=== PATIENT | female | born 1955 | race Caucasian/White ===

== ENCOUNTER 2019-02-25 06:07 | Day surgery (SDC) | payer OTHER, BC ==
[2019-02-23 13:10] VITALS: BMI 24.9
[~2019-02-25 06:07] MED LIST: BUPIVACAINE HCL/PF 0.5% (5 MG/ML) 30 ML VIAL IJ ONE; LACTATED RINGERS SOLUTION 1,000 ML IV SCH; LIDOCAINE HCL 1%, 10 MG/ML (20ML VIAL) INF ONE; ONDANSETRON 4 MG/2 ML VIAL IVPUSH PRN; oxyCODONE HCL 5 MG TABLET PO PRN
[2019-02-25] MEDS ORDERED: LIDOCAINE HCL 1%, 10 MG/ML (20ML VIAL) ONE (07:23)
[2019-02-25] MEDS ORDERED: BUPIVACAINE HCL/PF 0.5% (5MG/ML) 10 ML VIAL ONE (07:24)
[2019-02-25] MEDS ORDERED: SEVOFLURANE 250 ML BTL ONE (07:26)
[2019-02-25] MEDS ORDERED: PROPOFOL 20 ML ONE ×3 (07:31→08:19)
[2019-02-25] MEDS ORDERED: SODIUM CHLORIDE 0.9% P/F 10 ML VIAL IJ ONE (07:32)
[2019-02-25] MEDS ORDERED: SUCCINYLCHOLINE CHLORIDE 200 MG/10 ML SYRINGE ONE (07:35)
[2019-02-25] MEDS ORDERED: ceFAZolin SODIUM 1 GM VIAL ONE ×2 (07:35→08:20)
[2019-02-25] MEDS ORDERED: ROCURONIUM BROMIDE 50 MG/5 ML SYRINGE ONE (07:36)
[2019-02-25] MEDS ORDERED: DEXAMETHASONE SOD PHOSPHATE 4 MG/1 ML VIAL ONE ×2 (07:39)
[2019-02-25] MEDS ORDERED: MIDAZOLAM HCL 2 MG/2 ML SINGLE DOSE VIAL ONE ×2 (07:40)
[2019-02-25] MEDS ORDERED: KETOROLAC TROMETHAMINE 30 MG/1 ML VIAL ONE (07:40)
[2019-02-25] MEDS ORDERED: ACETAMINOPHEN INJECTION 100 ML IVPB ONE (07:44)
[2019-02-25] MEDS ORDERED: ceFAZolin SODIUM 1 GM VIAL IVPB ONE (08:15)
--- NOTE | 2019-02-25 08:21 | HP ---
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 Cardiovascular: Yes: HTN Gastrointestinal: Yes: GERD Musculoskeletal: Yes: Osteoarthritis - Current Medications Current Medications: Home Medications Medication Instructions Recorded Amlodipine Besylate [Norvasc -] 10 mg PO DAILY 03/02/14 Atorvastatin Ca [Lipitor] 40 mg PO HS 03/02/14 Enalapril Maleate [Vasotec -] 20 mg PO DAILY 03/02/14 Potassium Chloride [K-Dur] 40 meq PO DAILY 03/02/14 Sertraline HCl [Zoloft] 100 mg PO DAILY 03/02/14 Spironolactone [Aldactone] 50 mg PO BID 03/02/14 Metoprolol Succinate [Toprol Xl] 50 mg PO DAILY 07/20/15 Satellite Physical Exam - Physical Examination Vital Signs: Vital Signs Period Temp Pulse Resp BP Sys/Walter Pulse Ox Last 24 Hr 98.0 F 64 20 180/100 95 General Appearance: Well Nourished, Well Developed, Alert & Oriented x3 ENT: Clear Lung: Normal air movement Heart: Regular rate & rhythm Extremities: Other (left hand- + tinels, + phalens, emg + cts) Neurological: Intact, Alert, Oriented Satellite Impression/Plan - Impression/Plan Impression: left cts Operative Procedure: left ctr Date to be Performed: 02/25/19
[2019-02-25] MEDS ORDERED: LIDOCAINE HCL 1%, 10 MG/ML (20ML VIAL) INF ONE ×2 (08:31)
[2019-02-25] MEDS ORDERED: BUPIVACAINE HCL/PF 0.5% (5 MG/ML) 30 ML VIAL IJ ONE ×2 (08:31)
--- NOTE | 2019-02-25 09:04 | OP ---
Operative Note - Note: Operative Date: 02/25/19 ([facility]) Pre-Operative Diagnosis: left cts Operation: left ctr Post-Operative Diagnosis: Same as Pre-op Surgeon: Wilian Chang Anesthesiologist/CIGAR SORTER: Bro Vincent Anesthesia: Local, MAC Specimens Removed: tenosynovium Estimated Blood Loss (mls): 0 (tourniquet) Operative Report Dictated: Yes
[2019-02-25 09:07] VITALS: TEMP 97.4
--- NOTE | 2019-02-25 09:39 | SPEC ---
DATE OF OPERATION: 02/25/2019 PREOPERATIVE DIAGNOSIS: Left carpal tunnel syndrome. POSTOPERATIVE DIAGNOSIS: Left carpal tunnel syndrome. PROCEDURE: Left carpal tunnel release and tenosynovectomy. SURGEON: Bart Grimm MD CONVENTION WORKER: None. SPECIMENS: Tenosynovium, left wrist. DRAINS: None. COMPLICATIONS: None. BLOOD LOSS: None. BLOOD GIVEN: None. FLUID REPLACEMENT: PlasmaLyte, 500 mL. INDICATIONS: This patient is a 63-year-old female with a preoperative diagnosis of left carpal tunnel syndrome. After understanding the potential risks, complications, alternatives and benefits of surgery versus nonsurgical treatment, the patient elected to undergo this procedure. DESCRIPTION OF PROCEDURE: The patient was brought to the operating room, peripheral IV placed and intravenous sedation was given. Two grams of IV Ancef were given. MAC anesthesia was induced. A tourniquet was applied to the left upper arm and the left upper extremity was prepped and draped in sterile fashion. The entire case was done under 3.8 loupe magnification. A marking pen was utilized to lilly out a longitudinal incision in an already existing skin crease. Twenty mL of 0.5% Marcaine mixed with 1% Lidocaine was injected in and around the surgical incision. The left upper extremity was elevated, exsanguinated with an Esmarch bandage and the tourniquet inflated to 250 mmHg. A No. 15 scalpel blade was utilized to cut down through the skin. Subcutaneous hemostasis was achieved with the bipolar cautery. Dissection was done through the superficial palmar fascia. Self-retaining retractors were placed into the wound. Under direct visualization, the transverse carpal ligament was transected with a No. 15 scalpel blade, exposing the median nerve and the contents of the carpal tunnel. The distal and proximal extents of the release were completed with a Littler scissor and checked with irrigation and my small finger. They were seen to be complete. Limited dissection was done on the radial side of the median nerve and more extensive dissection was done on the ulnar side of the median nerve. The patients nerve was seen to be quite compressed by epineurium and therefore a limited epineurotomy was performed. A Ragnell retractor was used to gently retract the median nerve in a radial direction. The patient had a lot of tenosynovitis and therefore a tenosynovectomy was performed off all 9 flexor tendons. This was passed off the field as tenosynovium, left wrist. The floor of the carpal tunnel was checked. There were no abnormal masses or ganglion cysts. The area was copiously irrigated and washed out and closure begun. Undyed 4-0 Vicryl was used to close the deep dermal layer. Final skin reapproximation was done with horizontal mattress 4-0 nylon sutures. The area was then washed and dried, covered with Xeroform, 4x4s, fluffs between the fingers, Webril and a 4-inch plaster roll was utilized to make a volar splint, which was then wrapped with Norman and Coban. The tourniquet was taken down after a total tourniquet time of 20 minutes. There were no complications during the case. The patient tolerated the procedure well and was brought to the ambulatory recovery room in stable condition. BART GRIMM M.D. [id number]
[2019-02-25 11:49] VITALS: BP 146/81; PULSE 63
--- NOTE | 2019-03-02 17:19 | PATH ---
Surgical Pathology Report Patient Name: RAINA CASTANO [facility]. Rec. #: [id number] /Age/Gender: 1955 (Age: 63) / F Account: [id number] Location: [facility] Taken: 02/25/2019 Received: 02/25/2019 Reported: 03/02/2019 Physicians: Wilian Chang M.D. Specimen(s) Received TENOSYNOVIUM LEFT HAND Clinical History Left carpal tunnel Final Diagnosis TENOSYNOVIUM, HAND, LEFT, CARPAL TUNNEL RELEASE: BENIGN FIBROCONNECTIVE TISSUE. Electronically Signed Monse Woods M.D. Gross Description Received in formalin labeled "tenosynovium left hand," is a 2.5 x 1.5 x 0.3 cm aggregate of vasques-yellow portions of soft tissue, consistent with tenosynovium. The specimen is submitted in toto in one cassette. 02/26/201902/26/2019
== END 2019-02-25 10:30 | disposition home or self-care (01) ==
LOC: JASU-SURG 06:07
PROVIDERS: ATTEND Orthopaedic Surgery
PROC: 01N50ZZ Release Median Nerve, Open Approach (ICD-10-PCS; principal; 2019-02-25 08:00)
DX: G56.02 Carpal tunnel syndrome, left upper limb (principal)
CPT/HCPCS: 88304-TC; J0131

== ENCOUNTER 2019-04-12 09:36 | Inpatient (IN) | payer OTHER, BC ==
--- NOTE | 2019-04-12 10:44 | PDOC ---
History of Present Illness - General Chief Complaint: Back Pain Stated Complaint: LWR BACK PAIN Time Seen by Provider: 04/12/19 09:59 History Source: Patient Exam Limitations: No Limitations - History of Present Illness Initial Comments: 04/12/19 10:51 63 yo female pmh chronic back pain, arthritis and bulging discs presents to the ED with bilateral lower back pain. Pt states she has had this pain over the past 2 months (chart review shows past visits for similar complaints with pain management f/u) without trauma or cause of the pain. States the pain started suddenly, saw pcp who referred pt to Neurosurge->Pain management-> Endocrinology because pt has possible adrenal gland issues requiring work up prior to steroid injection. Pt last saw Endocrine 1 week ago, pending blood work and paper work and will f/u with pain. Pt states over the past 2 days she has had worsening pain in her back making it more difficult to get out of bed or ambulate. Pain is described as sharp stabbing squeezing and with radiation down the right leg. Pt states she has been seeing Chiropractor and having adjustments, states pain worseninged after adjustment. Denies F/C/N/V, weakness into the legs, saddle anesthesia, incontinence, changes in bowel or bladder habits, ambulates at home and into the ED, CP, SOB, abdominal pain. Past History - Past Medical History Allergies/Adverse Reactions: Allergies Allergy/AdvReac Type Severity Reaction Status Date / Time No Known Allergies Allergy Verified 04/12/19 09:41 Home Medications: Ambulatory Orders Amlodipine Besylate [Norvasc -] 10 mg PO DAILY 03/02/14 Atorvastatin Ca [Lipitor] 40 mg PO HS 03/02/14 Enalapril Maleate [Vasotec -] 20 mg PO DAILY 03/02/14 Potassium Chloride [K-Dur] 20 meq PO DAILY 03/02/14 Sertraline HCl [Zoloft] 100 mg PO DAILY 03/02/14 Spironolactone [Aldactone] 50 mg PO BID 03/02/14 Metoprolol Succinate [Toprol Xl] 50 mg PO DAILY 07/20/15 Hydrocodone/Acetaminophen [Hydrocodone-Acetamin 5-325 mg] 1 each PO Q6H #20 tablet MDD 4 02/25/19 Anemia: No Asthma: No Cancer: Yes (L RENAL) Cardiac Disorders: No CVA: No COPD: No CHF: No Dementia: No Diabetes: No GI Disorders: No Disorders: Yes (FIBROIDS) HTN: Yes Hypercholesterolemia: Yes Liver Disease: No Seizures: No Thyroid Disease: No - Surgical History Abdominal Surgery: Yes Cholecystectomy: Yes Neurologic Surgery: Yes (BACK SX) - Suicide/Smoking/Psychosocial Hx Smoking History: Never smoked Have you smoked in the past 12 months: No Information on smoking cessation initiated: No Hx Alcohol Use: No Drug/Substance Use Hx: No Substance Use Type: None Hx Substance Use Treatment: No Review of Systems - Review of Systems Constitutional: No: Chills, Fever HEENTM: No: Blurred Vision, Double Vision Respiratory: No: Shortness of Breath Cardiac (ROS): No: Chest Pain ABD/GI: No: Constipated, Diarrhea, Nausea, Vomiting : No: Burning, Dysuria, Flank Pain, Hematuria, Incontinence Musculoskeletal: Yes: Back Pain Integumentary: No: Change in Color Neurological: Yes: Numbness, Paresthesia, Unsteady Gait. No: Headache, Weakness *Physical Exam - Vital Signs Last Vital Signs Temp Pulse Resp BP Pulse Ox 98.1 F 72 22 H 148/89 98 04/12/19 10:30 04/12/19 10:30 04/12/19 10:30 04/12/19 10:30 04/12/19 10:30 - Physical Exam General Appearance: Yes: Nourished, Appropriately Dressed. No: Apparent Distress HEENT: positive: EOMI, LESLY Neck: positive: Supple. negative: Carotid bruit Respiratory/Chest: positive: Lungs Clear, Normal Breath Sounds. negative: Respiratory Distress, Accessory Muscle Use, Rapid RR, Crackles, Rales, Rhonchi, Stridor, Wheezing Cardiovascular: positive: Regular Rhythm, Regular Rate, S1, S2. negative: Edema , JVD, Murmur Gastrointestinal/Abdominal: positive: Flat, Soft. negative: Pulsatile Mass, Guarding, Rebound, Tenderness Musculoskeletal: negative: CVA Tenderness Extremity: positive: Normal Capillary Refill, Normal Inspection, Normal Range of Motion Integumentary: positive: Normal Color, Dry, Warm Neurologic: positive: Fully Oriented, Alert, Normal Mood/Affect, Normal Response , Motor Strength 5/5. negative: Numbness, Sensory Deficit, Confused, Disoriented ED Treatment Course - LABORATORY CBC & Chemistry Diagram: 04/12/19 12:49 04/12/19 12:49 Medical Decision Making - Medical Decision Making 63 yo female pmh chronic back pain, arthritis and bulging discs presents to the ED with bilateral lower back pain. Pt states she has had this pain over the past 2 months (chart review shows past visits for similar complaints with pain management f/u) without trauma or cause of the pain. States the pain started suddenly, saw pcp who referred pt to Neurosurge->Pain management-> Endocrinology because pt has possible adrenal gland issues requiring work up prior to steroid injection. Pt last saw Endocrine 1 week ago, pending blood work and paper work and will f/u with pain. Pt states over the past 2 days she has had worsening pain in her back making it more difficult to get out of bed or ambulate. Pain is described as sharp stabbing squeezing and with radiation down the right leg. Pt states she has been seeing Chiropractor and having adjustments, states pain worseninged after adjustment. Denies F/C/N/V, weakness into the legs, saddle anesthesia, incontinence, changes in bowel or bladder habits, ambulates at home and into the ED, CP, SOB, abdominal pain. vitals WNL 04/12/19 12:35 pt has hx of partial nephrectomy with UTI sepsis pt has UTI in the ED, antibiotics IV given. discussed with Dr. Courtney, agrees to have pt admitted and to have sono of kidney 04/12/19 14:06 Labs show 2.8 K, microblog Dr. Courtney and pt given 40 K PO with 10 meq IV will relay information to Dr. Courtney 04/12/19 14:[address] Courtney, would like nephro consult which was placed. Pt reports having hx of chronic low K in the 2s pt admitted *DC/Admit/Observation/Transfer Diagnosis at time of Disposition: UTI (urinary tract infection), Back pain - Discharge Dispostion Condition at time of disposition: Stable Decision to Admit order: Yes - Referrals - Patient Instructions - Post Discharge Activity
[2019-04-12] MEDS ORDERED: TIZANIDINE HCL 2 MG TABLET PO ONE (10:50)
--- NOTE | 2019-04-12 10:50 | PDOC ---
Attending Attestation - Resident Resident Name: Franklin Moncada - ED Attending Attestation I have performed the following: I have examined & evaluated the patient, The case was reviewed & discussed with the resident, I agree w/resident's findings & plan, Exceptions are as noted - HPI HPI: 63 yo F history chronic low back pain presenting with B/L lower and mid-back pain. She has had it for months, has been referred to NSx as an outpatient, who referred her to pain management for cortisone shot (then she was referred to an voltage tester because of history of prior adrenal resection). She has been taking pain meds, lidoderm patches, and flexeril without relief. No N/V, f/c. - Physicial Exam PE: GENERAL: Awake, alert, and fully oriented, in no acute distress HEAD: No signs of trauma EYES: PERRLA, EOMI, sclera anicteric, conjunctiva clear ENT: Auricles normal inspection, hearing grossly normal, nares patent, oropharynx clear without exudates. Moist mucosa NECK: Normal ROM, supple, no lymphadenopathy, JVD, or masses LUNGS: Breath sounds equal, clear to auscultation bilaterally. No wheezes, and no crackles HEART: Regular rate and rhythm, normal S1 and S2, no murmurs, rubs or gallops ABDOMEN: Soft, nontender, normoactive bowel sounds. No guarding, no rebound. No masses EXTREMITIES: Normal range of motion, no edema. No clubbing or cyanosis. No cords, erythema, or tenderness NEUROLOGICAL: Cranial nerves II through XII grossly intact. Normal speech, normal gait. Motor and sensation intact SKIN: Warm, dry, normal turgor, no rashes or lesions noted. SPINE: +B/L paraspinal soft tissue tenderness in lumbar region - Medical Decision Making 04/12/19 12:19 Pt with positive UA. On further history she states she gets frequent UTIs. In light of prior partial nephrectomy and sepsis from UTI, she may require admission. The back pain may be first sign of pyelonephritis rather than muscle strain. Will d/w her PMD.
[2019-04-12 11:53] LABS: EPI CELLS 2.4 /HPF (0-5/HPF); HYALINE CASTS 12 /lpf (0-8); URINE APPEARANCE CLOUDY; URINE BACTERIA 1430.2 /hpf (NEGATIVE); URINE BILIRUBIN NEGATIVE (NEGATIVE); URINE COLOR YELLOW; URINE GLUCOSE (UA) NEGATIVE (NEGATIVE); URINE KETONE NEGATIVE (NEGATIVE); URINE LEUK ESTERASE 2+ (NEGATIVE); URINE NITRITE POSITIVE (NEGATIVE); URINE PROTEIN 1+ (NEGATIVE); URINE RBC 3 /hpf (0-4); URINE UROBILINOGEN 0.2 mg/dL (0.2-1.0); URINE WBC 37 /hpf (0-5)
[2019-04-12] MEDS ORDERED: SODIUM CHLORIDE 1,000 ML IV STA (12:12)
[2019-04-12] MEDS ORDERED: CEFTRIAXONE 1 GM in DEXTROSE 5%-WATER - 50 ML IVPB ONE (12:12)
[2019-04-12] MEDS ORDERED: CEFTRIAXONE 1 GM/50 ML BAG ONE (12:19)
[2019-04-12 13:06] LABS: BASO % 0.4 % (0-2.0); HEMOGLOBIN 12.7 GM/dL (10.7-15.3); LYMPH % 11.6 % (8-40); MCH 26.4 pg (25.7-33.7); MCHC 33.5 g/dl (32.0-36.0); MEAN CELL VOLUME 78.9 fl (80-96); MEAN PLT VOLUME 7.6 fl (7.5-11.1); MONO % 7.8 % (3.8-10.2); NEUT % 79.2 % (42.8-82.8); PLATELET COUNT 348 K/MM3 (134-434); RBC 4.82 M/mm3 (3.60-5.2); RDW 16.4 % (11.6-15.6); WHITE BLOOD COUNT 11.8 K/mm3 (4.0-10.0)
[2019-04-12 13:33] LABS: ALBUMIN 3.2 g/dl (3.4-5.0); BILIRUBIN,TOTAL 0.5 mg/dL (0.2-1); BLOOD UREA NITROGEN 19.5 mg/dL (7-18); CALCIUM 9.3 mg/dL (8.5-10.1); CREATININE 0.7 mg/dL (0.55-1.3); TOT PROT 6.7 g/dl (6.4-8.2)
[2019-04-12 13:44] LABS: POTASSIUM 2.8 mmol/L (3.5-5.1)
[2019-04-12] MEDS ORDERED: POTASSIUM CHLORIDE ORAL LIQUID 20 MEQ/15 ML PO ONE (14:05)
[2019-04-12] MEDS ORDERED: KCL 10 MEQ IVPB 10 MEQ/100 ML INFUS.BAG IVPB SCH (14:15)
[2019-04-12] MEDS ORDERED: KCL 10 MEQ IVPB 10 MEQ/100 ML INFUS.BAG IVPB ONE ×5 (15:09→22:00)
[2019-04-12] MEDS ORDERED: POTASSIUM CHLORIDE ORAL LIQUID 20 MEQ/15 ML ONE (15:09)
--- NOTE | 2019-04-12 15:16 | HP ---
Admitting History and Physical - Primary Care Physician PCP: Vamshi Courtney - Admission Chief Complaint: PYLONEPHRITIS/HYPOKALEMIA/CORTISOL DEFECIENCY History of Present Illness: 63 Y/O FEMALE WITH H/O HTN, LIPIDEMIA, CORTISOL DEFECIENCY, SURGICAL HISTORY OF ADRENAL RESECTION FOR A TUMOR PRESENTS WITH SEVERE BACK PAIN, URINARY FREQUENCY , WEAKNESS. 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 Cardiovascular: Yes: HTN Gastrointestinal: Yes: GERD Musculoskeletal: Yes: Osteoarthritis - Past Surgical History Past Surgical History: Yes: Laminectomy, Nephrectomy - Smoking History Smoking history: Never smoked Have you smoked in the past 12 months: No - Alcohol/Substance Use Hx Alcohol Use: No Home Medications - Allergies Allergies/Adverse Reactions: Allergies Allergy/AdvReac Type Severity Reaction Status Date / Time No Known Allergies Allergy Verified 04/12/19 09:41 - Home Medications Home Medications: Ambulatory Orders Amlodipine Besylate [Norvasc -] 10 mg PO DAILY 03/02/14 Atorvastatin Ca [Lipitor] 40 mg PO HS 03/02/14 Enalapril Maleate [Vasotec -] 20 mg PO DAILY 03/02/14 Potassium Chloride [K-Dur] 20 meq PO DAILY 03/02/14 Sertraline HCl [Zoloft] 100 mg PO DAILY 03/02/14 Spironolactone [Aldactone] 50 mg PO BID 03/02/14 Metoprolol Succinate [Toprol Xl] 50 mg PO DAILY 07/20/15 Hydrocodone/Acetaminophen [Hydrocodone-Acetamin 5-325 mg] 1 each PO Q6H #20 tablet MDD 4 02/25/19 Review of Systems - Review of Systems Constitutional: reports: Weakness Eyes: reports: No Symptoms HENT: reports: No Symptoms Neck: reports: No Symptoms Cardiovascular: reports: No Symptoms Respiratory: reports: No Symptoms Gastrointestinal: reports: No Symptoms Genitourinary: reports: Frequency Musculoskeletal: reports: Back Pain Integumentary: reports: No Symptoms Neurological: reports: Numbness Endocrine: reports: No Symptoms Hematology/Lymphatic: reports: No Symptoms Psychiatric: reports: No Symptoms Physical Examination Vital Signs: Vital Signs Temperature 98.1 F 04/12/19 10:30 Pulse Rate 72 04/12/19 10:30 Respiratory Rate 22 H 04/12/19 10:30 Blood Pressure 148/89 04/12/19 10:30 O2 Sat by Pulse Oximetry (%) 98 04/12/19 10:30 Constitutional: Yes: Moderate Distress Cardiovascular: Yes: Regular Rate and Rhythm Respiratory: Yes: WNL Gastrointestinal: Yes: WNL Renal/: Yes: WNL Musculoskeletal: Yes: Back Pain, Muscle Weakness Extremities: Yes: WNL Edema: No Integumentary: Yes: WNL Wound/Incision: Yes: Clean/Dry ...Motor Strength: WNL Psychiatric: Yes: WNL Labs: CBC, BMP 04/12/19 12:49 04/12/19 12:49 Imaging - Results Ultrasound: Pending Problem List - Problems (1) Hypokalemia Code(s): E87.6 - HYPOKALEMIA (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 - OTHER ADRENOCORTICAL INSUFFICIENCY (3) Pyelonephritis Code(s): N12 - TUBULO-INTERSTITIAL NEPHRITIS, NOT SPCF ACUTE OR CHRONIC (4) Back pain Code(s): M54.9 - DORSALGIA, UNSPECIFIED (5) Urinary tract infection Code(s): N39.0 - URINARY TRACT INFECTION, SITE NOT SPECIFIED (6) Lumbar radicular pain Code(s): M54.16 - RADICULOPATHY, LUMBAR REGION Assessment/Plan AWAIT URINE CULTURES CEFTRIAXONE IV CHECK SONO OF KIDNEYS ENDOCRINE/NEPHROLOGY EVAL FOR CORTISOL DEFECIENCY OOB TO CHAIR PAIN CONTROL RADICULAR LUMBAGO
[2019-04-12] MEDS ORDERED: SODIUM CHLORIDE IVPB SCH (15:30)
[2019-04-12] MEDS ORDERED: POTASSIUM CHLORIDE IVPB SCH (15:30)
[2019-04-12] MEDS ORDERED: ACETAMINOPHEN 325 MG TABLET (FP) ONE ×2 (16:28→23:30)
[2019-04-12] MEDS ORDERED: CYCLOBENZAPRINE HCL 10 MG TABLET (FP) ONE (16:28)
[2019-04-12] MEDS: ACETAMINOPHEN 325 MG TABLET (FP) PO PRN ×2 (16:30→23:40)
[2019-04-12] MEDS: CYCLOBENZAPRINE HCL 10 MG TABLET (FP) PO PRN (16:30)
[2019-04-12 19:47] LABS: MAGNESIUM 2.1 mg/dL (1.8-2.4)
[2019-04-12 19:51] LABS: POTASSIUM 2.8 mmol/L (3.5-5.1)
--- NOTE | 2019-04-12 20:23 | CONSULT ---
Consult Consult Specialty:: Nephrology Reason for Consultation:: hypokalemia - History of Present Illness Chief Complaint: back pain History of Present Illness: Pt is a 63 year old female with pmhx of partnial nephrectomy, hypokalemia, chornic back pain and arthritis who presents to the ER with worsening lower back pain. She says that the pain has been progressive over the last few months. She denies dysuria or hematuria. She was found to be hypokalemic and I was called to evaluate her. She had received potassium supplements. I ordered a repeat potassium in the ER earlier. She denies chest pain or palpitations. 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 Cardio/Vascular: Yes: HTN Gastrointestinal: Yes: GERD Renal/: Yes: Renal Inusuff Musculoskeletal: Yes: Osteoarthritis - Past Surgical History Past Surgical History: Yes: Laminectomy, Nephrectomy - Alcohol/Substance Use Hx Alcohol Use: No - Smoking History Smoking history: Never smoked Have you smoked in the past 12 months: No - Social History Usual Living Arrangement: With Spouse Home Medications - Allergies Allergies/Adverse Reactions: Allergies Allergy/AdvReac Type Severity Reaction Status Date / Time No Known Allergies Allergy Verified 04/12/19 09:41 - Home Medications Home Medications: Ambulatory Orders RX: Amlodipine Besylate [Norvasc -] 10 mg PO DAILY 03/02/14 RX: Atorvastatin Ca [Lipitor] 40 mg PO HS 03/02/14 RX: Enalapril Maleate [Vasotec -] 20 mg PO DAILY 03/02/14 RX: Potassium Chloride [K-Dur] 20 meq PO DAILY 03/02/14 RX: Sertraline HCl [Zoloft] 100 mg PO DAILY 03/02/14 RX: Spironolactone [Aldactone] 50 mg PO BID 03/02/14 RX: Metoprolol Succinate [Toprol Xl] 50 mg PO DAILY 07/20/15 Hydrocodone/Acetaminophen [Hydrocodone-Acetamin 5-325 mg] 1 each PO Q6H #20 tablet MDD 4 02/25/19 Family Medical History Family History: Denies Review of Systems - Review of Systems Constitutional: reports: Malaise Eyes: reports: No Symptoms HENT: reports: No Symptoms Neck: reports: No Symptoms Cardiovascular: reports: No Symptoms Gastrointestinal: reports: No Symptoms Genitourinary: reports: No Symptoms Musculoskeletal: reports: Back Pain Integumentary: reports: No Symptoms Neurological: reports: No Symptoms Endocrine: reports: No Symptoms Hematology/Lymphatic: reports: No Symptoms Psychiatric: reports: No Symptoms Physical Exam Vital Signs: Vital Signs Temperature 98.1 F 04/12/19 10:30 Pulse Rate 72 04/12/19 10:30 Respiratory Rate 22 H 04/12/19 10:30 Blood Pressure 148/89 04/12/19 10:30 O2 Sat by Pulse Oximetry (%) 98 04/12/19 10:30 Constitutional: Yes: Calm Eyes: Yes: Conjunctiva Clear HENT: Yes: Atraumatic Neck: Yes: Supple Cardiovascular: Yes: S1, S2 Respiratory: Yes: CTA Bilaterally Gastrointestinal: Yes: Soft ...Rectal Exam: Yes: Erythema Musculoskeletal: Yes: WNL Edema: No Neurological: Yes: Oriented Psychiatric: Yes: Oriented Labs: CBC, BMP 04/12/19 12:49 04/12/19 Unknown Laboratory Tests 04/12/19 04/12/19 04/12/19 11:34 12:49 12:49 WBC 11.8 H Hgb 12.7 Potassium 2.8 L* BUN 19.5 H Creatinine 0.7 Urine Protein 1+ H Urine Nitrite Positive H 04/12/19 Unknown WBC Hgb Potassium 2.8 L* BUN Creatinine Urine Protein Urine Nitrite Imaging - Results Ultrasound: Report Reviewed Problem List - Problems (1) Hypokalemia Code(s): E87.6 - HYPOKALEMIA (2) Urinary tract infection Code(s): N39.0 - URINARY TRACT INFECTION, SITE NOT SPECIFIED Assessment/Plan Current Medications Generic Name Dose Route Start Last Admin Trade Name Freq PRN Reason Stop Dose Admin Acetaminophen 650 mg 04/12/19 15:10 04/12/19 16:30 Tylenol - PO 650 mg Q6H PRN Administration PAIN OR FEVER Amlodipine Besylate 10 mg 04/13/19 10:00 Norvasc - PO DAILY [facility] Atorvastatin Calcium 40 mg 04/12/19 22:00 Lipitor - PO HS [facility] Cyclobenzaprine HCl 10 mg 04/12/19 15:11 04/12/19 16:30 Flexeril - PO 10 mg Q8H PRN Administration MUSCLE SPASMS Docusate Sodium 300 mg 04/12/19 22:00 Colace - PO HS [facility] Enalapril Maleate 20 mg 04/13/19 10:00 Vasotec - PO DAILY [facility] Heparin Sodium (Porcine) 5,000 unit 04/12/19 22:00 Heparin - SQ BID [facility] Potassium Chloride 10 meq/ 1,000 mls @ 75 mls/hr 04/12/19 15:30 04/12/19 18: 00 Sodium Chloride IVPB 75 mls/hr Q13H JÚNIOR Administration Metoprolol Succinate 50 mg 04/13/19 10:00 Toprol Xl - PO DAILY [facility] Sertraline HCl 100 mg 04/13/19 10:00 Zoloft - PO DAILY [facility] Spironolactone 50 mg 04/13/19 10:00 Aldactone - PO DAILY [facility] Impression 1. Hypokalemia 2. hx or partial nephrectomy 3. htn 4. back pain 5. uti 6. ckd Plan - replace potassium - check plasma and urine osm along with urin potassium to calc ttkg - check cortisol level - cont aldactone - d/c thiazide - volume status stable - d/c fluids
[2019-04-12] MEDS ORDERED: ATORVASTATIN CA 40 MG TABLET (FP) ONE (22:17)
[2019-04-12] MEDS ORDERED: DOCUSATE SODIUM 100 MG CAPSULE (FP) PO ONE (22:17)
[2019-04-12] MEDS ORDERED: KCL 10 MEQ IVPB 20 MEQ/200 ML INFUS.BAG IVPB ONE (22:18)
[2019-04-12] MEDS ORDERED: HEPARIN NA (PORCINE) 5,000 UNITS/ML 1ML VIAL ONE (22:18)
[2019-04-12] MEDS: DOCUSATE SODIUM 100 MG CAPSULE (FP) PO SCH (22:32)
[2019-04-12] MEDS: ATORVASTATIN CA 40 MG TABLET (FP) PO SCH (22:32)
[2019-04-12] MEDS: HEPARIN NA (PORCINE) 5,000 UNITS/ML 1ML VIAL SQ SCH (22:32)
[2019-04-13] MEDS: CYCLOBENZAPRINE HCL 10 MG TABLET (FP) PO PRN (00:33)
[2019-04-13 01:23] VITALS: BMI 26.7
[2019-04-13 07:44] LABS: HEMOGLOBIN 11.8 GM/dL (10.7-15.3); MCH 26.6 pg (25.7-33.7); MCHC 33.7 g/dl (32.0-36.0); MEAN PLT VOLUME 8.1 fl (7.5-11.1); PLATELET COUNT 314 K/MM3 (134-434); RBC 4.43 M/mm3 (3.60-5.2); RDW 16.4 % (11.6-15.6); WHITE BLOOD COUNT 9.1 K/mm3 (4.0-10.0)
[2019-04-13 08:20] LABS: ALBUMIN 2.8 g/dl (3.4-5.0); BILIRUBIN,TOTAL 0.4 mg/dL (0.2-1); CALCIUM 8.8 mg/dL (8.5-10.1); CREATININE 0.6 mg/dL (0.55-1.3)
--- NOTE | 2019-04-13 08:47 | PN ---
Progress Note, Physician Chief Complaint: AWAKE ALERT EVENTS REVIEWED POTASSIUM BEING REPLACED - Current Medication List Current Medications: Active Medications Acetaminophen (Tylenol -) 650 mg PO Q6H PRN PRN Reason: PAIN OR FEVER Last Admin: 04/12/19 23:40 Dose: 650 mg Amlodipine Besylate (Norvasc -) 10 mg PO DAILY [facility] Atorvastatin Calcium (Lipitor -) 40 mg PO HS [facility] Last Admin: 04/12/19 22:32 Dose: 40 mg Cyclobenzaprine HCl (Flexeril -) 10 mg PO Q8H PRN PRN Reason: MUSCLE SPASMS Last Admin: 04/13/19 00:33 Dose: 10 mg Docusate Sodium (Colace -) 300 mg PO HS [facility] Last Admin: 04/12/19 22:32 Dose: Not Given Enalapril Maleate (Vasotec -) 20 mg PO DAILY [facility] Heparin Sodium (Porcine) (Heparin -) 5,000 unit SQ BID [facility] Last Admin: 04/12/19 22:32 Dose: Not Given Potassium Chloride (Potassium Chloride 10 Meq Premix Ivpb -) 10 meq in 100 mls @ 100 mls/hr IVPB Q60M ONE Last Admin: 04/12/19 21:04 Dose: 100 mls/hr Potassium Chloride (Potassium Chloride 10 Meq Premix Ivpb -) 10 meq in 100 mls @ 100 mls/hr IVPB Q60M ONE Last Admin: 04/12/19 22:11 Dose: 100 mls/hr Potassium Chloride (Potassium Chloride 10 Meq Premix Ivpb -) 10 meq in 100 mls @ 100 mls/hr IVPB Q60M ONE Last Admin: 04/12/19 22:32 Dose: 100 mls/hr Metoprolol Succinate (Toprol Xl -) 50 mg PO DAILY [facility] Sertraline HCl (Zoloft -) 100 mg PO DAILY [facility] Spironolactone (Aldactone -) 50 mg PO DAILY [facility] - Objective Vital Signs: Vital Signs Temperature 97.9 F 04/13/19 06:13 Pulse Rate 81 04/13/19 06:13 Respiratory Rate 18 04/13/19 06:13 Blood Pressure 150/94 04/13/19 06:13 O2 Sat by Pulse Oximetry (%) 96 04/13/19 00:34 Constitutional: Yes: Mild Distress Cardiovascular: Yes: Regular Rate and Rhythm Respiratory: Yes: WNL Gastrointestinal: Yes: WNL Genitourinary: Yes: WNL Musculoskeletal: Yes: Back Pain Extremities: Yes: WNL Edema: No Integumentary: Yes: WNL Wound/Incision: Yes: Clean/Dry Neurological: Yes: Weakness ...Motor Strength: LLE, RLE Psychiatric: Yes: WNL Labs: CBC, BMP 04/13/19 06:35 04/13/19 06:35 Problem List - Problems (1) Hypokalemia Code(s): E87.6 - HYPOKALEMIA (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 - OTHER ADRENOCORTICAL INSUFFICIENCY (3) Pyelonephritis Code(s): N12 - TUBULO-INTERSTITIAL NEPHRITIS, NOT SPCF ACUTE OR CHRONIC (4) Back pain Code(s): M54.9 - DORSALGIA, UNSPECIFIED Qualifiers: Back pain location: thoracic back pain (5) Urinary tract infection Code(s): N39.0 - URINARY TRACT INFECTION, SITE NOT SPECIFIED Qualifiers: Urinary tract infection type: acute cystitis (6) Lumbar radicular pain Code(s): M54.16 - RADICULOPATHY, LUMBAR REGION Assessment/Plan IV ABX PER ID CORTISOL/ALDOSTERONE WORKUP BY NEPHROLOGY AND ENDOCRINE APPRECIATED REPLETE KCL OOB TO CHAIR DVT PROPHLAXIS PT REFUSED HEPARIN SQ ADD STD PUMPS PAIN CONTROL
[2019-04-13 08:57] LABS: POTASSIUM 2.8 mmol/L (3.5-5.1)
[2019-04-13] MEDS: HEPARIN NA (PORCINE) 5,000 UNITS/ML 1ML VIAL SQ SCH ×3 (11:07→22:30)
[2019-04-13] MEDS: ENALAPRIL MALEATE 10 MG TABLET (FP) PO SCH (11:09)
[2019-04-13] MEDS: amLODIPine BESYLATE 10 MG TABLET (FP) PO SCH (11:09)
[2019-04-13] MEDS: SERTRALINE HCL 50 MG TABLET (FP) PO SCH (11:09)
[2019-04-13] MEDS: SPIRONOLACTONE 25 MG TABLET (FP) PO SCH (11:09)
[2019-04-13] MEDS: oxyCODONE HCL 5 MG TABLET PO PRN ×2 (11:10→23:29)
[2019-04-13] MEDS ORDERED: POTASSIUM CHLORIDE ORAL LIQUID 20 MEQ/15 ML PO ONE (11:45)
--- NOTE | 2019-04-13 11:45 | PN ---
Progress Note (short form) - Note Progress Note: ID CONSULT DICTATED UTI R/O SEPSIS SECONDARY TO UTI ACUTE EXACERBATION CHRONIC BACK PAIN LEUKOCYTOSIS IMPROVED PENDING C/S EMPIRIC CETRIAXONE
[2019-04-13] MEDS ORDERED: DEXTROSE 5%-WATER 100 ML IVPB ONE (11:54)
[2019-04-13] MEDS: CEFTRIAXONE 2 GM in DEXTROSE 5%-WATER 100 ML IVPB SCH (11:59)
--- NOTE | 2019-04-13 14:10 | CONS ---
INFECTIOUS DISEASE CONSULTATION DATE OF CONSULTATION: DATE OF DICTATION: 04/13/2019 HISTORY: The patient is a 63-year-old female with a history of chronic low back pain evaluated for urinary tract infection. The patient has a history of chronic low back pain. Over the past 2 days, she has had worsening of her back pain to the point where she was unable to stand or ambulate. The pain is primarily on the right side of the lower back with radiation down to the right lower extremity. In addition, she complained of urinary frequency, however, denied dysuria or hematuria. 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 Sonogram of the kidneys were negative for hydronephrosis. She was found to have a nonobstructing left renal stone. The patient is status post partial nephrectomy. She denies any high-grade fever. No complaints of suprapubic pain or tenderness. PAST MEDICAL HISTORY: Positive for chronic low back pain, osteoarthritis, hyperlipidemia. PAST SURGICAL HISTORY: Status post partial nephrectomy and laminectomy. ALLERGIES: No known allergies. MEDICATIONS: Include ceftriaxone, Tylenol, Norvasc, Lipitor, Flexeril, enalapril, metoprolol, spironolactone. Blood and urine cultures are pending. SYSTEMS REVIEW: Neurologic: No loss of consciousness, seizure activity, focal weakness. Cardiac: Negative chest pain or palpitations. Respiratory: Negative cough or sputum production. Gastrointestinal: Negative vomiting or diarrhea. Genitourinary: As per HPI. LABORATORY DATA: White count 11.8, presently 9.1, hematocrit 35.1, platelet count 314, creatinine 0.6. Liver enzymes normal. Urinalysis: 34 white cells. 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 PHYSICAL EXAMINATION: General: She is awake. She is alert. Supine in bed in moderate distress secondary to back pain. She is unable to assume a comfortable position. Vital Signs: Temperature 97.9, maximum temperature 99.5, blood pressure 150/94, pulse 81 regular, respirations 18 per minute. HEENT: Sclerae anicteric. Heart: Sounds S1, S2. Lungs: Clear. Abdomen: Soft. No suprapubic tenderness. Mild right CVA tenderness. Extremities: Negative for edema. IMPRESSION: 1. Urinary tract infection. 2. Rule out sepsis secondary to urinary tract infection. 3. Acute exacerbation of chronic back pain. 4. Nonobstructing kidney stones. 5. Leukocytosis, resolved. PLAN: Await culture results. Empiric antibiotic coverage with ceftriaxone 2 g IV piggyback every 24 hours. IV fluid hydration. Analgesics. Thank you for the kind referral. VELASQUEZ SARMIENTO M.D. [id number]
--- NOTE | 2019-04-13 15:37 | PN ---
Progress Note, Physician History of Present Illness: Pt seen and examined at bedside. She is awake and alert. She denies chest pain or palpitations. - Current Medication List Current Medications: Active Medications Acetaminophen (Tylenol -) 650 mg PO Q6H PRN PRN Reason: PAIN OR FEVER Last Admin: 04/12/19 23:40 Dose: 650 mg Amlodipine Besylate (Norvasc -) 10 mg PO DAILY [facility] Last Admin: 04/13/19 11:09 Dose: 10 mg Atorvastatin Calcium (Lipitor -) 40 mg PO HS [facility] Last Admin: 04/12/19 22:32 Dose: 40 mg Cyclobenzaprine HCl (Flexeril -) 10 mg PO Q8H PRN PRN Reason: MUSCLE SPASMS Last Admin: 04/13/19 00:33 Dose: 10 mg Docusate Sodium (Colace -) 300 mg PO HS [facility] Last Admin: 04/12/19 22:32 Dose: Not Given Enalapril Maleate (Vasotec -) 20 mg PO DAILY [facility] Last Admin: 04/13/19 11:09 Dose: 20 mg Heparin Sodium (Porcine) (Heparin -) 5,000 unit SQ BID [facility] Last Admin: 04/13/19 11:20 Dose: Not Given Potassium Chloride (Potassium Chloride 10 Meq Premix Ivpb -) 10 meq in 100 mls @ 100 mls/hr IVPB Q60M ONE Last Admin: 04/12/19 21:04 Dose: 100 mls/hr Potassium Chloride (Potassium Chloride 10 Meq Premix Ivpb -) 10 meq in 100 mls @ 100 mls/hr IVPB Q60M ONE Last Admin: 04/12/19 22:11 Dose: 100 mls/hr Potassium Chloride (Potassium Chloride 10 Meq Premix Ivpb -) 10 meq in 100 mls @ 100 mls/hr IVPB Q60M ONE Last Admin: 04/12/19 22:32 Dose: 100 mls/hr Ceftriaxone Sodium 2 gm/ (Dextrose) 100 mls @ 200 mls/hr IVPB DAILY [facility]; Protocol Last Admin: 04/13/19 11:59 Dose: 200 mls/hr Metoprolol Succinate (Toprol Xl -) 50 mg PO DAILY [facility] Last Admin: 04/13/19 11:09 Dose: 50 mg Oxycodone HCl (Roxicodone -) 5 mg PO Q6H PRN PRN Reason: PAIN LEVEL 7 - 10 Last Admin: 04/13/19 11:10 Dose: 5 mg Sertraline HCl (Zoloft -) 100 mg PO DAILY [facility] Last Admin: 04/13/19 11:09 Dose: 100 mg Spironolactone (Aldactone -) 50 mg PO DAILY [facility] Last Admin: 04/13/19 11:09 Dose: 50 mg - Objective Vital Signs: Vital Signs Temperature 98.9 F 04/13/19 14:56 Pulse Rate 88 04/13/19 14:56 Respiratory Rate 18 04/13/19 14:56 Blood Pressure 138/86 04/13/19 14:56 O2 Sat by Pulse Oximetry (%) 96 04/13/19 09:00 Constitutional: Yes: Calm Eyes: Yes: Conjunctiva Clear HENT: Yes: Atraumatic Neck: Yes: Supple Cardiovascular: Yes: S1, S2 Respiratory: Yes: CTA Bilaterally Gastrointestinal: Yes: Soft Genitourinary: Yes: WNL Musculoskeletal: Yes: WNL Edema: No Neurological: Yes: Oriented Psychiatric: Yes: Oriented Labs: CBC, BMP 04/13/19 06:35 04/13/19 06:35 Problem List - Problems (1) Hypokalemia Code(s): E87.6 - HYPOKALEMIA (2) Urinary tract infection Code(s): N39.0 - URINARY TRACT INFECTION, SITE NOT SPECIFIED Assessment/Plan Current Medications Generic Name Dose Route Start Last Admin Trade Name Freq PRN Reason Stop Dose Admin Acetaminophen 650 mg 04/12/19 15:10 04/12/19 23:40 Tylenol - PO 650 mg Q6H PRN Administration PAIN OR FEVER Amlodipine Besylate 10 mg 04/13/19 10:00 04/13/19 11:09 Norvasc - PO 10 mg DAILY [facility] Administration Atorvastatin Calcium 40 mg 04/12/19 22:00 04/12/19 22:32 Lipitor - PO 40 mg HS [facility] Administration Cyclobenzaprine HCl 10 mg 04/12/19 15:11 04/13/19 00:33 Flexeril - PO 10 mg Q8H PRN Administration MUSCLE SPASMS Docusate Sodium 300 mg 04/12/19 22:00 04/12/19 22:32 Colace - PO Not Given HS [facility] Enalapril Maleate 20 mg 04/13/19 10:00 04/13/19 11:09 Vasotec - PO 20 mg DAILY [facility] Administration Heparin Sodium (Porcine) 5,000 unit 04/12/19 22:00 04/13/19 11:20 Heparin - SQ Not Given BID [facility] Potassium Chloride 10 meq in 100 mls @ 100 mls/hr 04/12/19 20:32 04/12/19 21: 04 Potassium Chloride 10 Meq Premix Ivpb - IVPB 100 mls/hr Q60M ONE Administration Potassium Chloride 10 meq in 100 mls @ 100 mls/hr 04/12/19 21:05 04/12/19 22: 11 Potassium Chloride 10 Meq Premix Ivpb - IVPB 100 mls/hr Q60M ONE Administration Potassium Chloride 10 meq in 100 mls @ 100 mls/hr 04/12/19 22:00 04/12/19 22: 32 Potassium Chloride 10 Meq Premix Ivpb - IVPB 100 mls/hr Q60M ONE Administration Ceftriaxone Sodium 2 gm/ 100 mls @ 200 mls/hr 04/13/19 11:45 04/13/19 11:59 Dextrose IVPB 200 mls/hr DAILY [facility] Administration Protocol Metoprolol Succinate 50 mg 04/13/19 10:00 04/13/19 11:09 Toprol Xl - PO 50 mg DAILY [facility] Administration Oxycodone HCl 5 mg 04/13/19 08:47 04/13/19 11:10 Roxicodone - PO 5 mg Q6H PRN Administration PAIN LEVEL 7 - 10 Sertraline HCl 100 mg 04/13/19 10:00 04/13/19 11:09 Zoloft - PO 100 mg DAILY [facility] Administration Spironolactone 50 mg 04/13/19 10:00 04/13/19 11:09 Aldactone - PO 50 mg DAILY [facility] Administration ttkg 9.5 Impression 1. Hypokalemia 2. hx or partial nephrectomy 3. htn 4. back pain 5. uti 6. ckd Plan - replace potassium - do not restart thiazide - follow cortisol - cont potassium supplements - volume status stable - check kae and renin levels - will need outpt follow up as well - r/o aldosteronism
--- NOTE | 2019-04-13 17:55 | CON.GU ---
Consult Consult Specialty:: urology Referred by:: Sherwin Reason for Consultation:: left pyelonephritis/uti/renal stone - History of Present Illness Chief Complaint: left renal colic History of Present Illness: Patient is a 63 year old female with history of uti with severe urinary urgency and frequency. Patient descibes nausea without vomiting with left flank pain. Patient with left renal stone. Patient denies gross hematuria. 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 Cardio/Vascular: Yes: HTN Gastrointestinal: Yes: GERD Renal/: Yes: Renal Inusuff ...: No Musculoskeletal: Yes: Osteoarthritis - Past Surgical History Past Surgical History: Yes: Laminectomy, Nephrectomy - Alcohol/Substance Use Hx Alcohol Use: No - Smoking History Smoking history: Never smoked Have you smoked in the past 12 months: No - Social History Usual Living Arrangement: With Spouse Home Medications - Allergies Allergies/Adverse Reactions: Allergies Allergy/AdvReac Type Severity Reaction Status Date / Time No Known Allergies Allergy Verified 04/12/19 09:41 - Home Medications Home Medications: Ambulatory Orders Amlodipine Besylate [Norvasc -] 10 mg PO DAILY 03/02/14 Atorvastatin Ca [Lipitor] 40 mg PO HS 03/02/14 Enalapril Maleate [Vasotec -] 20 mg PO DAILY 03/02/14 Potassium Chloride [K-Dur] 20 meq PO DAILY 03/02/14 Sertraline HCl [Zoloft] 100 mg PO DAILY 03/02/14 Spironolactone [Aldactone] 50 mg PO BID 03/02/14 Metoprolol Succinate [Toprol Xl] 50 mg PO DAILY 07/20/15 Hydrocodone/Acetaminophen [Hydrocodone-Acetamin 5-325 mg] 1 each PO Q6H #20 tablet MDD 4 02/25/19 Physical Exam- Vital Signs: Vital Signs Temperature 98.9 F 04/13/19 14:56 Pulse Rate 88 04/13/19 14:56 Respiratory Rate 18 04/13/19 14:56 Blood Pressure 138/86 04/13/19 14:56 O2 Sat by Pulse Oximetry (%) 96 04/13/19 09:00 Constitutional: Yes: Well Nourished, No Distress, Calm Eyes: Yes: WNL, Conjunctiva Clear, EOM Intact HENT: Yes: WNL, Atraumatic, Normocephalic Neck: Yes: WNL, Supple, Trachea Midline Cardiovascular: Yes: WNL, Regular Rate and Rhythm Respiratory: Yes: WNL, Regular Gastrointestinal: Yes: WNL, Normal Bowel Sounds, Soft Renal/: Yes: CVA Tenderness - Left Kidneys: Yes: Flank Pain Left Pelvis: Yes: WNL, Bladder Non Palpable External Genitalia: Yes: WNL Labs: CBC, BMP 04/13/19 06:35 04/13/19 06:35 Imaging - Results Ultrasound: Report Reviewed Assessment/Plan impression uti left renal stone plan continue antibiotics will schedule eswl as outpatient thank you for this kind consultation
--- NOTE | 2019-04-13 19:38 | CONSULT ---
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 Cardio/Vascular: Yes: HTN Gastrointestinal: Yes: GERD Renal/: Yes: Renal Inusuff ...: No Musculoskeletal: Yes: Osteoarthritis - Past Surgical History Past Surgical History: Yes: Laminectomy, Nephrectomy - Alcohol/Substance Use Hx Alcohol Use: No - Smoking History Smoking history: Never smoked Have you smoked in the past 12 months: No - Social History Usual Living Arrangement: With Spouse Home Medications - Allergies Allergies/Adverse Reactions: Allergies Allergy/AdvReac Type Severity Reaction Status Date / Time No Known Allergies Allergy Verified 04/12/19 09:41 - Home Medications Home Medications: Ambulatory Orders Amlodipine Besylate [Norvasc -] 10 mg PO DAILY 03/02/14 Atorvastatin Ca [Lipitor] 40 mg PO HS 03/02/14 Enalapril Maleate [Vasotec -] 20 mg PO DAILY 03/02/14 Potassium Chloride [K-Dur] 20 meq PO DAILY 03/02/14 Sertraline HCl [Zoloft] 100 mg PO DAILY 03/02/14 Spironolactone [Aldactone] 50 mg PO BID 03/02/14 Metoprolol Succinate [Toprol Xl] 50 mg PO DAILY 07/20/15 Hydrocodone/Acetaminophen [Hydrocodone-Acetamin 5-325 mg] 1 each PO Q6H #20 tablet MDD 4 02/25/19 Review of Systems - Review of Systems Constitutional: reports: Lethargy, Loss of Appetite, Weakness Eyes: reports: No Symptoms HENT: reports: No Symptoms Neck: reports: No Symptoms Cardiovascular: reports: No Symptoms Respiratory: reports: Exercise Intolerance, SOB on Exertion Gastrointestinal: reports: No Symptoms Genitourinary: reports: Frequency Breasts: reports: No Symptoms Reported Musculoskeletal: reports: Muscle Pain, Muscle Cramps, Muscle Weakness Endocrine: reports: Unexplained Weight Gain Physical Exam Vital Signs: Vital Signs Temperature 98.9 F 04/13/19 14:56 Pulse Rate 88 04/13/19 14:56 Respiratory Rate 18 04/13/19 14:56 Blood Pressure 138/86 04/13/19 14:56 O2 Sat by Pulse Oximetry (%) 96 04/13/19 09:00 Constitutional: Yes: Anxious Eyes: Yes: EOM Intact HENT: Yes: Normocephalic Neck: Yes: Trachea Midline Cardiovascular: Yes: Regular Rate and Rhythm Respiratory: Yes: CTA Bilaterally Gastrointestinal: Yes: Normal Bowel Sounds ...Rectal Exam: Yes: Deferred Renal/: Yes: WNL Musculoskeletal: Yes: Back Pain, Muscle Pain, Muscle Weakness Edema: No Labs: CBC, BMP 04/13/19 06:35 04/13/19 06:35 Problem List - Problems (1) Back pain Code(s): M54.9 - DORSALGIA, UNSPECIFIED Qualifiers: Back pain location: thoracic back pain (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 - OTHER ADRENOCORTICAL INSUFFICIENCY (3) Hypokalemia Code(s): E87.6 - HYPOKALEMIA (4) Pyelonephritis Code(s): N12 - TUBULO-INTERSTITIAL NEPHRITIS, NOT SPCF ACUTE OR CHRONIC (5) Urinary tract infection Code(s): N39.0 - URINARY TRACT INFECTION, SITE NOT SPECIFIED Qualifiers: Urinary tract infection type: acute cystitis (6) Lumbar radicular pain Code(s): M54.16 - RADICULOPATHY, LUMBAR REGION (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 INSUFFICIENCY Assessment/Plan Current Active Problems Back pain (Acute) Cortisol deficiency (Acute) Hypokalemia (Acute) Pyelonephritis (Acute) Urinary tract infection (Acute) Abnormal Lab Results 04/12/19 04/12/19 04/13/19 23:24 Unknown 06:35 MCV 79.0 L RDW 16.4 H Potassium 2.8 L* Total Protein Albumin Ur Random Chloride 94 L 04/13/19 06:35 MCV RDW Potassium 2.8 L* Total Protein 6.0 L Albumin 2.8 L Ur Random Chloride Laboratory Results - last 24 hr 04/12/19 04/12/19 04/13/19 23:24 Unknown 06:35 WBC 9.1 RBC 4.43 Hgb 11.8 Hct 35.0 MCV 79.0 L MCH 26.6 MCHC 33.7 RDW 16.4 H Plt Count 314 MPV 8.1 Sodium Potassium 2.8 L* Chloride Carbon Dioxide Anion Gap BUN Creatinine Est GFR (CKD-EPI)AfAm Est GFR (CKD-EPI)NonAf Random Glucose Serum Osmolality Calcium Magnesium 2.1 Total Bilirubin AST ALT Alkaline Phosphatase Total Protein Albumin Urine Osmolality 322 Ur Random Sodium 72 Ur Random Potassium 29.0 Ur Random Chloride 94 L 04/13/19 06:35 WBC RBC Hgb Hct MCV MCH MCHC RDW Plt Count MPV Sodium 144 Potassium 2.8 L* Chloride 105 Carbon Dioxide 30 Anion Gap 9 BUN 13.0 Creatinine 0.6 Est GFR (CKD-EPI)AfAm 110.86 Est GFR (CKD-EPI)NonAf 95.65 Random Glucose 97 Serum Osmolality 296 Calcium 8.8 Magnesium Total Bilirubin 0.4 AST 21 ALT 35 Alkaline Phosphatase 98 Total Protein 6.0 L Albumin 2.8 L Urine Osmolality Ur Random Sodium Ur Random Potassium Ur Random Chloride PLAN: COSYNTROPIN TEST CORTISOL ACTH THEN FLORINEF .1MG HS
[2019-04-13] MEDS ORDERED: COSYNTROPIN 0.25 MG VIAL IVPUSH ONE (20:00)
[2019-04-13] MEDS: DOCUSATE SODIUM 100 MG CAPSULE (FP) PO SCH (22:29)
[2019-04-13] MEDS: ATORVASTATIN CA 40 MG TABLET (FP) PO SCH (22:29)
[2019-04-13] MEDS: POTASSIUM CHLORIDE TABS 20 MEQ TABLET.ER (FP) PO SCH (22:29)
[2019-04-14] MEDS ORDERED: COSYNTROPIN 0.25 MG VIAL IVPUSH ONE (07:00)
[2019-04-14 08:02] LABS: ALBUMIN 2.8 g/dl (3.4-5.0); BILIRUBIN,TOTAL 0.9 mg/dL (0.2-1); BLOOD UREA NITROGEN 18.6 mg/dL (7-18); CALCIUM 8.9 mg/dL (8.5-10.1); CREATININE 0.6 mg/dL (0.55-1.3); MAGNESIUM 2.1 mg/dL (1.8-2.4); POTASSIUM 3.3 mmol/L (3.5-5.1); TOT PROT 6.2 g/dl (6.4-8.2)
--- NOTE | 2019-04-14 08:25 | PN ---
Progress Note, Physician Chief Complaint: BACK PAIN NO FEVERS - Current Medication List Current Medications: Active Medications Acetaminophen (Tylenol -) 650 mg PO Q6H PRN PRN Reason: PAIN OR FEVER Last Admin: 04/12/19 23:40 Dose: 650 mg Amlodipine Besylate (Norvasc -) 10 mg PO DAILY [facility] Last Admin: 04/13/19 11:09 Dose: 10 mg Atorvastatin Calcium (Lipitor -) 40 mg PO HS [facility] Last Admin: 04/13/19 22:29 Dose: 40 mg Cyclobenzaprine HCl (Flexeril -) 10 mg PO Q8H PRN PRN Reason: MUSCLE SPASMS Last Admin: 04/13/19 00:33 Dose: 10 mg Docusate Sodium (Colace -) 300 mg PO HS [facility] Last Admin: 04/13/19 22:29 Dose: 300 mg Enalapril Maleate (Vasotec -) 20 mg PO DAILY [facility] Last Admin: 04/13/19 11:09 Dose: 20 mg Heparin Sodium (Porcine) (Heparin -) 5,000 unit SQ BID [facility] Last Admin: 04/13/19 22:30 Dose: Not Given Potassium Chloride (Potassium Chloride 10 Meq Premix Ivpb -) 10 meq in 100 mls @ 100 mls/hr IVPB Q60M ONE Last Admin: 04/12/19 21:04 Dose: 100 mls/hr Potassium Chloride (Potassium Chloride 10 Meq Premix Ivpb -) 10 meq in 100 mls @ 100 mls/hr IVPB Q60M ONE Last Admin: 04/12/19 22:11 Dose: 100 mls/hr Potassium Chloride (Potassium Chloride 10 Meq Premix Ivpb -) 10 meq in 100 mls @ 100 mls/hr IVPB Q60M ONE Last Admin: 04/12/19 22:32 Dose: 100 mls/hr Ceftriaxone Sodium 2 gm/ (Dextrose) 100 mls @ 200 mls/hr IVPB DAILY [facility]; Protocol Last Admin: 04/13/19 11:59 Dose: 200 mls/hr Metoprolol Succinate (Toprol Xl -) 50 mg PO DAILY [facility] Last Admin: 04/13/19 11:09 Dose: 50 mg Oxycodone HCl (Roxicodone -) 5 mg PO Q6H PRN PRN Reason: PAIN LEVEL 7 - 10 Last Admin: 04/13/19 23:29 Dose: 5 mg Potassium Chloride (K-Dur -) 40 meq PO BID [facility] Last Admin: 04/13/19 22:29 Dose: 40 meq Sertraline HCl (Zoloft -) 100 mg PO DAILY [facility] Last Admin: 04/13/19 11:09 Dose: 100 mg Spironolactone (Aldactone -) 50 mg PO DAILY [facility] Last Admin: 04/13/19 11:09 Dose: 50 mg - Objective Vital Signs: Vital Signs Temperature 98.1 F 04/14/19 06:24 Pulse Rate 79 04/14/19 06:24 Respiratory Rate 18 04/14/19 06:24 Blood Pressure 131/78 04/14/19 06:24 O2 Sat by Pulse Oximetry (%) 96 04/13/19 21:00 Constitutional: Yes: Mild Distress Cardiovascular: Yes: Regular Rate and Rhythm Respiratory: Yes: WNL Gastrointestinal: Yes: WNL Genitourinary: Yes: CVA Tenderness - Right, Other Musculoskeletal: Yes: Back Pain, Muscle Weakness Labs: CBC, BMP 04/13/19 06:35 04/14/19 06:30 Problem List - Problems (1) Hypokalemia Code(s): E87.6 - HYPOKALEMIA (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 - OTHER ADRENOCORTICAL INSUFFICIENCY (3) Pyelonephritis Code(s): N12 - TUBULO-INTERSTITIAL NEPHRITIS, NOT SPCF ACUTE OR CHRONIC (4) Back pain Code(s): M54.9 - DORSALGIA, UNSPECIFIED Qualifiers: Back pain location: thoracic back pain (5) Urinary tract infection Code(s): N39.0 - URINARY TRACT INFECTION, SITE NOT SPECIFIED Qualifiers: Urinary tract infection type: acute cystitis (6) Lumbar radicular pain Code(s): M54.16 - RADICULOPATHY, LUMBAR REGION Assessment/Plan CEFTRIAXONE IV DAILY FOR PYELONEPHRITIS FOLLOW UO CX ID APPRECIATED ADDING LIDODERM PATCH CYCLOBENZAPREIN AND OXYCODONE TID CORTISON/ADRENAL WORKUP IN PROGRESS
[2019-04-14] MEDS ORDERED: PT OWN MED DRAWER 7, Y5N ONE (08:55)
--- NOTE | 2019-04-14 10:42 | PN ---
Progress Note, Physician History of Present Illness: STILL WITH R FLANK PAIN BUT IMPROVED NOW ABLE TO GETT OOB AND BEAR WT + DYSURIA NO C/O F/C AFEBRILE BC (-) URINE C/S E COLI (S) CEFTRIAXONE - Current Medication List Current Medications: Active Medications Acetaminophen (Tylenol -) 650 mg PO Q6H PRN PRN Reason: PAIN OR FEVER Last Admin: 04/12/19 23:40 Dose: 650 mg Amlodipine Besylate (Norvasc -) 10 mg PO DAILY [facility] Last Admin: 04/13/19 11:09 Dose: 10 mg Atorvastatin Calcium (Lipitor -) 40 mg PO HS [facility] Last Admin: 04/13/19 22:29 Dose: 40 mg Cyclobenzaprine HCl (Flexeril -) 10 mg PO Q8H PRN PRN Reason: MUSCLE SPASMS Last Admin: 04/13/19 00:33 Dose: 10 mg Docusate Sodium (Colace -) 300 mg PO HS [facility] Last Admin: 04/13/19 22:29 Dose: 300 mg Enalapril Maleate (Vasotec -) 20 mg PO DAILY [facility] Last Admin: 04/13/19 11:09 Dose: 20 mg Heparin Sodium (Porcine) (Heparin -) 5,000 unit SQ BID [facility] Last Admin: 04/13/19 22:30 Dose: Not Given Potassium Chloride (Potassium Chloride 10 Meq Premix Ivpb -) 10 meq in 100 mls @ 100 mls/hr IVPB Q60M ONE Last Admin: 04/12/19 21:04 Dose: 100 mls/hr Potassium Chloride (Potassium Chloride 10 Meq Premix Ivpb -) 10 meq in 100 mls @ 100 mls/hr IVPB Q60M ONE Last Admin: 04/12/19 22:11 Dose: 100 mls/hr Potassium Chloride (Potassium Chloride 10 Meq Premix Ivpb -) 10 meq in 100 mls @ 100 mls/hr IVPB Q60M ONE Last Admin: 04/12/19 22:32 Dose: 100 mls/hr Ceftriaxone Sodium 2 gm/ (Dextrose) 100 mls @ 200 mls/hr IVPB DAILY [facility]; Protocol Last Admin: 04/13/19 11:59 Dose: 200 mls/hr Metoprolol Succinate (Toprol Xl -) 50 mg PO DAILY [facility] Last Admin: 04/13/19 11:09 Dose: 50 mg Oxycodone HCl (Roxicodone -) 5 mg PO Q6H PRN PRN Reason: PAIN LEVEL 7 - 10 Last Admin: 04/13/19 23:29 Dose: 5 mg Potassium Chloride (K-Dur -) 40 meq PO BID [facility] Last Admin: 04/13/19 22:29 Dose: 40 meq Sertraline HCl (Zoloft -) 100 mg PO DAILY [facility] Last Admin: 04/13/19 11:09 Dose: 100 mg Spironolactone (Aldactone -) 50 mg PO DAILY [facility] Last Admin: 04/13/19 11:09 Dose: 50 mg - Objective Vital Signs: Vital Signs Temperature 98.1 F 04/14/19 06:24 Pulse Rate 79 04/14/19 06:24 Respiratory Rate 18 04/14/19 06:24 Blood Pressure 131/78 04/14/19 06:24 O2 Sat by Pulse Oximetry (%) 96 04/13/19 21:00 Constitutional: Yes: No Distress Eyes: Yes: Conjunctiva Clear Cardiovascular: Yes: Regular Rate and Rhythm, S1, S2 Respiratory: Yes: CTA Bilaterally Gastrointestinal: Yes: Normal Bowel Sounds, Soft Genitourinary: Yes: CVA Tenderness - Right Edema: No Labs: CBC, BMP 04/13/19 06:35 04/14/19 06:30 Assessment/Plan UTI R/O SEPSIS SECONDARY TO UTI ACUTE EXACERBATION COPD LEUKOCYTOSIS- IMPROVED CONTINUE CEFTRIAXONE
[2019-04-14] MEDS ORDERED: DEXTROSE 5%-WATER 100 ML IVPB ONE (11:02)
[2019-04-14] MEDS: CEFTRIAXONE 2 GM in DEXTROSE 5%-WATER 100 ML IVPB SCH (11:03)
[2019-04-14] MEDS: amLODIPine BESYLATE 10 MG TABLET (FP) PO SCH (11:04)
[2019-04-14] MEDS: POTASSIUM CHLORIDE TABS 20 MEQ TABLET.ER (FP) PO SCH ×2 (11:04→21:07)
[2019-04-14] MEDS: SERTRALINE HCL 50 MG TABLET (FP) PO SCH (11:04)
[2019-04-14] MEDS: SPIRONOLACTONE 25 MG TABLET (FP) PO SCH (11:05)
[2019-04-14] MEDS: ENALAPRIL MALEATE 10 MG TABLET (FP) PO SCH (11:05)
[2019-04-14] MEDS: HEPARIN NA (PORCINE) 5,000 UNITS/ML 1ML VIAL SQ SCH ×2 (11:05→21:09)
--- NOTE | 2019-04-14 13:18 | PN ---
Progress Note, Physician History of Present Illness: Pt seen and examined at bedside. She is awake and alert. She says she feels a little better today. - Current Medication List Current Medications: Active Medications Acetaminophen (Tylenol -) 650 mg PO Q6H PRN PRN Reason: PAIN OR FEVER Last Admin: 04/12/19 23:40 Dose: 650 mg Amlodipine Besylate (Norvasc -) 10 mg PO DAILY [facility] Last Admin: 04/14/19 11:04 Dose: 10 mg Atorvastatin Calcium (Lipitor -) 40 mg PO HS [facility] Last Admin: 04/13/19 22:29 Dose: 40 mg Cyclobenzaprine HCl (Flexeril -) 10 mg PO Q8H PRN PRN Reason: MUSCLE SPASMS Last Admin: 04/13/19 00:33 Dose: 10 mg Docusate Sodium (Colace -) 300 mg PO HS [facility] Last Admin: 04/13/19 22:29 Dose: 300 mg Enalapril Maleate (Vasotec -) 20 mg PO DAILY [facility] Last Admin: 04/14/19 11:05 Dose: 20 mg Heparin Sodium (Porcine) (Heparin -) 5,000 unit SQ BID [facility] Last Admin: 04/14/19 11:05 Dose: Not Given Potassium Chloride (Potassium Chloride 10 Meq Premix Ivpb -) 10 meq in 100 mls @ 100 mls/hr IVPB Q60M ONE Last Admin: 04/12/19 21:04 Dose: 100 mls/hr Potassium Chloride (Potassium Chloride 10 Meq Premix Ivpb -) 10 meq in 100 mls @ 100 mls/hr IVPB Q60M ONE Last Admin: 04/12/19 22:11 Dose: 100 mls/hr Potassium Chloride (Potassium Chloride 10 Meq Premix Ivpb -) 10 meq in 100 mls @ 100 mls/hr IVPB Q60M ONE Last Admin: 04/12/19 22:32 Dose: 100 mls/hr Ceftriaxone Sodium 2 gm/ (Dextrose) 100 mls @ 200 mls/hr IVPB DAILY [facility]; Protocol Last Admin: 04/14/19 11:03 Dose: 200 mls/hr Metoprolol Succinate (Toprol Xl -) 50 mg PO DAILY [facility] Last Admin: 04/14/19 11:04 Dose: 50 mg Oxycodone HCl (Roxicodone -) 5 mg PO Q6H PRN PRN Reason: PAIN LEVEL 7 - 10 Last Admin: 04/13/19 23:29 Dose: 5 mg Potassium Chloride (K-Dur -) 40 meq PO BID [facility] Last Admin: 04/14/19 11:04 Dose: 40 meq Sertraline HCl (Zoloft -) 100 mg PO DAILY [facility] Last Admin: 04/14/19 11:04 Dose: 100 mg Spironolactone (Aldactone -) 50 mg PO DAILY [facility] Last Admin: 04/14/19 11:05 Dose: 50 mg - Objective Vital Signs: Vital Signs Temperature 98.1 F 04/14/19 10:00 Pulse Rate 77 04/14/19 10:00 Respiratory Rate 18 04/14/19 10:00 Blood Pressure 166/92 04/14/19 10:00 O2 Sat by Pulse Oximetry (%) 96 04/14/19 09:00 Constitutional: Yes: Calm Eyes: Yes: Conjunctiva Clear HENT: Yes: Atraumatic Neck: Yes: Supple Cardiovascular: Yes: S1, S2 Respiratory: Yes: CTA Bilaterally Gastrointestinal: Yes: Normal Bowel Sounds, Soft Genitourinary: Yes: WNL Musculoskeletal: Yes: WNL Edema: No Neurological: Yes: Oriented Psychiatric: Yes: Oriented Labs: CBC, BMP 04/13/19 06:35 04/14/19 06:30 Problem List - Problems (1) Hypokalemia Code(s): E87.6 - HYPOKALEMIA (2) Urinary tract infection Code(s): N39.0 - URINARY TRACT INFECTION, SITE NOT SPECIFIED Qualifiers: Urinary tract infection type: acute cystitis Assessment/Plan Current Medications Generic Name Dose Route Start Last Admin Trade Name Freq PRN Reason Stop Dose Admin Acetaminophen 650 mg 04/12/19 15:10 04/12/19 23:40 Tylenol - PO 650 mg Q6H PRN Administration PAIN OR FEVER Amlodipine Besylate 10 mg 04/13/19 10:00 04/14/19 11:04 Norvasc - PO 10 mg DAILY [facility] Administration Atorvastatin Calcium 40 mg 04/12/19 22:00 04/13/19 22:29 Lipitor - PO 40 mg HS [facility] Administration Cyclobenzaprine HCl 10 mg 04/12/19 15:11 04/13/19 00:33 Flexeril - PO 10 mg Q8H PRN Administration MUSCLE SPASMS Docusate Sodium 300 mg 09/22/19 22:00 04/13/19 22:29 Colace - PO 300 mg HS [facility] Administration Enalapril Maleate 20 mg 04/13/19 10:00 04/14/19 11:05 Vasotec - PO 20 mg DAILY [facility] Administration Heparin Sodium (Porcine) 5,000 unit 04/12/19 22:00 04/14/19 11:05 Heparin - SQ Not Given BID [facility] Potassium Chloride 10 meq in 100 mls @ 100 mls/hr 04/12/19 20:32 04/12/19 21: 04 Potassium Chloride 10 Meq Premix Ivpb - IVPB 100 mls/hr Q60M ONE Administration Potassium Chloride 10 meq in 100 mls @ 100 mls/hr 04/12/19 21:05 04/12/19 22: 11 Potassium Chloride 10 Meq Premix Ivpb - IVPB 100 mls/hr Q60M ONE Administration Potassium Chloride 10 meq in 100 mls @ 100 mls/hr 04/12/19 22:00 04/12/19 22: 32 Potassium Chloride 10 Meq Premix Ivpb - IVPB 100 mls/hr Q60M ONE Administration Ceftriaxone Sodium 2 gm/ 100 mls @ 200 mls/hr 04/13/19 11:45 04/14/19 11:03 Dextrose IVPB 200 mls/hr DAILY [facility] Administration Protocol Metoprolol Succinate 50 mg 04/13/19 10:00 04/14/19 11:04 Toprol Xl - PO 50 mg DAILY [facility] Administration Oxycodone HCl 5 mg 04/13/19 08:47 04/13/19 23:29 Roxicodone - PO 5 mg Q6H PRN Administration PAIN LEVEL 7 - 10 Potassium Chloride 40 meq 04/13/19 22:00 04/14/19 11:04 K-Dur - PO 40 meq BID [facility] Administration Sertraline HCl 100 mg 04/13/19 10:00 04/14/19 11:04 Zoloft - PO 100 mg DAILY [facility] Administration Spironolactone 50 mg 04/13/19 10:00 04/14/19 11:05 Aldactone - PO 50 mg DAILY [facility] Administration Impression 1. Hypokalemia 2. hx or partial nephrectomy 3. htn 4. back pain 5. uti 6. ckd Plan - potassium improving - workup in progress - endo eval appreciated - cont potassium supplements - volume status is stable
[2019-04-14] MEDS: oxyCODONE HCL 5 MG TABLET PO PRN ×2 (15:03→23:17)
[2019-04-14] MEDS: ATORVASTATIN CA 40 MG TABLET (FP) PO SCH (21:07)
[2019-04-14] MEDS: DOCUSATE SODIUM 100 MG CAPSULE (FP) PO SCH (21:07)
--- NOTE | 2019-04-15 00:31 | PN ---
Progress Note, Physician Chief Complaint: BACK PAIN ELEVATED BP - Current Medication List Current Medications: Active Medications Acetaminophen (Tylenol -) 650 mg PO Q6H PRN PRN Reason: PAIN OR FEVER Last Admin: 04/12/19 23:40 Dose: 650 mg Amlodipine Besylate (Norvasc -) 10 mg PO DAILY [facility] Last Admin: 04/14/19 11:04 Dose: 10 mg Atorvastatin Calcium (Lipitor -) 40 mg PO HS [facility] Last Admin: 04/14/19 21:07 Dose: 40 mg Cyclobenzaprine HCl (Flexeril -) 10 mg PO Q8H PRN PRN Reason: MUSCLE SPASMS Last Admin: 04/13/19 00:33 Dose: 10 mg Docusate Sodium (Colace -) 300 mg PO HS [facility] Last Admin: 04/14/19 21:07 Dose: Not Given Enalapril Maleate (Vasotec -) 20 mg PO DAILY [facility] Last Admin: 04/14/19 11:05 Dose: 20 mg Heparin Sodium (Porcine) (Heparin -) 5,000 unit SQ BID [facility] Last Admin: 04/14/19 21:09 Dose: Not Given Potassium Chloride (Potassium Chloride 10 Meq Premix Ivpb -) 10 meq in 100 mls @ 100 mls/hr IVPB Q60M ONE Last Admin: 04/12/19 21:04 Dose: 100 mls/hr Potassium Chloride (Potassium Chloride 10 Meq Premix Ivpb -) 10 meq in 100 mls @ 100 mls/hr IVPB Q60M ONE Last Admin: 04/12/19 22:11 Dose: 100 mls/hr Potassium Chloride (Potassium Chloride 10 Meq Premix Ivpb -) 10 meq in 100 mls @ 100 mls/hr IVPB Q60M ONE Last Admin: 04/12/19 22:32 Dose: 100 mls/hr Ceftriaxone Sodium 2 gm/ (Dextrose) 100 mls @ 200 mls/hr IVPB DAILY [facility]; Protocol Last Admin: 04/14/19 11:03 Dose: 200 mls/hr Metoprolol Succinate (Toprol Xl -) 50 mg PO DAILY [facility] Last Admin: 04/14/19 11:04 Dose: 50 mg Oxycodone HCl (Roxicodone -) 5 mg PO Q6H PRN PRN Reason: PAIN LEVEL 7 - 10 Last Admin: 09/24/19 23:17 Dose: 5 mg Potassium Chloride (K-Dur -) 40 meq PO BID [facility] Last Admin: 04/14/19 21:07 Dose: 40 meq Sertraline HCl (Zoloft -) 100 mg PO DAILY [facility] Last Admin: 04/14/19 11:04 Dose: 100 mg Spironolactone (Aldactone -) 50 mg PO DAILY [facility] Last Admin: 04/14/19 11:05 Dose: 50 mg - Objective Vital Signs: Vital Signs Temperature 98.6 F 04/14/19 21:20 Pulse Rate 85 04/14/19 21:20 Respiratory Rate 16 04/14/19 21:20 Blood Pressure 136/73 04/14/19 21:20 O2 Sat by Pulse Oximetry (%) 96 04/14/19 21:00 Constitutional: Yes: Anxious Eyes: Yes: EOM Intact HENT: Yes: Normocephalic Neck: Yes: Trachea Midline Cardiovascular: Yes: Regular Rate and Rhythm Respiratory: Yes: CTA Bilaterally Gastrointestinal: Yes: Normal Bowel Sounds ...Rectal Exam: Yes: Deferred Genitourinary: Yes: WNL Musculoskeletal: Yes: Muscle Pain, Muscle Weakness Extremities: Yes: WNL Edema: No Peripheral Pulses WNL: Yes Neurological: Yes: Alert, Oriented Labs: CBC, BMP 04/13/19 06:35 04/14/19 06:30 Problem List - Problems (1) Back pain Code(s): M54.9 - DORSALGIA, UNSPECIFIED Qualifiers: Back pain location: thoracic back pain (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 - OTHER ADRENOCORTICAL INSUFFICIENCY (3) Hypokalemia Code(s): E87.6 - HYPOKALEMIA (4) Pyelonephritis Code(s): N12 - TUBULO-INTERSTITIAL NEPHRITIS, NOT SPCF ACUTE OR CHRONIC (5) Urinary tract infection Code(s): N39.0 - URINARY TRACT INFECTION, SITE NOT SPECIFIED Qualifiers: Urinary tract infection type: acute cystitis (6) Lumbar radicular pain Code(s): M54.16 - RADICULOPATHY, LUMBAR REGION (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 INSUFFICIENCY Assessment/Plan Current Active Problems HYPERALDOSTERONE/CON SYNDROME LIKELY SOURCE Back pain (Acute) Cortisol deficiency (Acute) Hypokalemia (Acute) Primary hypoadrenalism (Acute) Pyelonephritis (Acute) Urinary tract infection (Acute) Abnormal Lab Results 04/14/19 04/14/19 06:30 08:00 Potassium 3.3 L Anion Gap 7 L BUN 18.6 H Total Protein 6.2 L Albumin 2.8 L Ur Random Sodium 35 L Ur Random Chloride 52 L Laboratory Results - last 24 hr 04/14/19 04/14/19 04/14/19 06:30 08:00 08:00 Sodium 142 Potassium 3.3 L Chloride 103 Carbon Dioxide 31 Anion Gap 7 L BUN 18.6 H Creatinine 0.6 Est GFR (CKD-EPI)AfAm 110.86 Est GFR (CKD-EPI)NonAf 95.65 Random Glucose 96 Calcium 8.9 Magnesium 2.1 Total Bilirubin 0.9 AST 16 ALT 33 Alkaline Phosphatase 95 Total Protein 6.2 L Albumin 2.8 L Urine Osmolality 518 Ur Random Sodium 35 L Ur Random Potassium Cancelled 63.0 Ur Random Chloride 52 L PLAN: ALDOSTERONE/RENIN PENDING CONTINUE AND TITRATE ALDACTONE 50MG BID ACTH/CORTISOL AXIS PENDING
[2019-04-15 08:36] LABS: BLOOD UREA NITROGEN 19.1 mg/dL (7-18); CREATININE 0.6 mg/dL (0.55-1.3); POTASSIUM 3.7 mmol/L (3.5-5.1)
[2019-04-15] MEDS ORDERED: DEXTROSE 5%-WATER 100 ML IVPB ONE (08:55)
[2019-04-15] MEDS: SPIRONOLACTONE 25 MG TABLET (FP) PO SCH ×2 (09:24→21:29)
[2019-04-15] MEDS: CEFTRIAXONE 2 GM in DEXTROSE 5%-WATER 100 ML IVPB SCH (09:25)
[2019-04-15] MEDS: amLODIPine BESYLATE 10 MG TABLET (FP) PO SCH (09:25)
[2019-04-15] MEDS: POTASSIUM CHLORIDE TABS 20 MEQ TABLET.ER (FP) PO SCH ×2 (09:25→21:29)
[2019-04-15] MEDS: SERTRALINE HCL 50 MG TABLET (FP) PO SCH (09:25)
[2019-04-15] MEDS: HEPARIN NA (PORCINE) 5,000 UNITS/ML 1ML VIAL SQ SCH ×2 (09:25→22:45)
[2019-04-15] MEDS: ENALAPRIL MALEATE 10 MG TABLET (FP) PO SCH (09:27)
--- NOTE | 2019-04-15 10:00 | PN ---
Progress Note, Physician Chief Complaint: AWAKE ALERT C/O BACK PAIN NO FEVERS BP ELEVATED TODAY - Current Medication List Current Medications: Active Medications Acetaminophen (Tylenol -) 650 mg PO Q6H PRN PRN Reason: PAIN OR FEVER Last Admin: 04/12/19 23:40 Dose: 650 mg Amlodipine Besylate (Norvasc -) 10 mg PO DAILY [facility] Last Admin: 04/15/19 09:25 Dose: 10 mg Atorvastatin Calcium (Lipitor -) 40 mg PO HS [facility] Last Admin: 04/14/19 21:07 Dose: 40 mg Cyclobenzaprine HCl (Flexeril -) 10 mg PO Q8H PRN PRN Reason: MUSCLE SPASMS Last Admin: 04/13/19 00:33 Dose: 10 mg Docusate Sodium (Colace -) 300 mg PO HS [facility] Last Admin: 04/14/19 21:07 Dose: Not Given Enalapril Maleate (Vasotec -) 20 mg PO DAILY [facility] Last Admin: 04/15/19 09:27 Dose: 20 mg Heparin Sodium (Porcine) (Heparin -) 5,000 unit SQ BID [facility] Last Admin: 04/15/19 09:25 Dose: 5,000 unit Potassium Chloride (Potassium Chloride 10 Meq Premix Ivpb -) 10 meq in 100 mls @ 100 mls/hr IVPB Q60M ONE Last Admin: 04/12/19 21:04 Dose: 100 mls/hr Potassium Chloride (Potassium Chloride 10 Meq Premix Ivpb -) 10 meq in 100 mls @ 100 mls/hr IVPB Q60M ONE Last Admin: 04/12/19 22:11 Dose: 100 mls/hr Potassium Chloride (Potassium Chloride 10 Meq Premix Ivpb -) 10 meq in 100 mls @ 100 mls/hr IVPB Q60M ONE Last Admin: 04/12/19 22:32 Dose: 100 mls/hr Ceftriaxone Sodium 2 gm/ (Dextrose) 100 mls @ 200 mls/hr IVPB DAILY [facility]; Protocol Last Admin: 04/15/19 09:25 Dose: 200 mls/hr Lidocaine (Lidoderm Patch -) 1 patch TP DAILY [facility] Metoprolol Succinate (Toprol Xl -) 50 mg PO DAILY [facility] Last Admin: 04/15/19 09:25 Dose: 50 mg Miscellaneous (Lidoderm Patch Removal) 1 each MC DAILY@2200 [facility] Oxycodone HCl (Roxicodone -) 5 mg PO Q6H PRN PRN Reason: PAIN LEVEL 7 - 10 Last Admin: 04/14/19 23:17 Dose: 5 mg Potassium Chloride (K-Dur -) 40 meq PO BID [facility] Last Admin: 04/15/19 09:25 Dose: 40 meq Sertraline HCl (Zoloft -) 100 mg PO DAILY [facility] Last Admin: 04/15/19 09:25 Dose: 100 mg Spironolactone (Aldactone -) 50 mg PO BID [facility] Last Admin: 04/15/19 09:24 Dose: 50 mg - Objective Vital Signs: Vital Signs Temperature 98.3 F 04/15/19 06:13 Pulse Rate 70 04/15/19 06:13 Respiratory Rate 18 04/15/19 08:51 Blood Pressure 152/96 04/15/19 06:13 O2 Sat by Pulse Oximetry (%) 96 04/15/19 08:51 Constitutional: Yes: Mild Distress Cardiovascular: Yes: Regular Rate and Rhythm Respiratory: Yes: WNL Gastrointestinal: Yes: WNL Genitourinary: Yes: WNL Musculoskeletal: Yes: Back Pain Extremities: Yes: WNL Edema: No Peripheral Pulses WNL: Yes Integumentary: Yes: WNL Wound/Incision: Yes: Clean/Dry Neurological: Yes: Loss of Sensation, Unsteady Gait, Weakness ...Motor Strength: LLE, RLE Psychiatric: Yes: Other Labs: CBC, BMP 04/13/19 06:35 04/15/19 07:09 Problem List - Problems (1) Hypokalemia Code(s): E87.6 - HYPOKALEMIA (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 - OTHER ADRENOCORTICAL INSUFFICIENCY (3) Pyelonephritis Code(s): N12 - TUBULO-INTERSTITIAL NEPHRITIS, NOT SPCF ACUTE OR CHRONIC (4) Back pain Code(s): M54.9 - DORSALGIA, UNSPECIFIED Qualifiers: Back pain location: thoracic back pain (5) Urinary tract infection Code(s): N39.0 - URINARY TRACT INFECTION, SITE NOT SPECIFIED Qualifiers: Urinary tract infection type: acute cystitis (6) Lumbar radicular pain Code(s): M54.16 - RADICULOPATHY, LUMBAR REGION (7) Lumbago Code(s): M54.5 - LOW BACK PAIN (8) Lumbago due to displacement of intervertebral disc Code(s): M51.26 - OTHER INTERVERTEBRAL DISC DISPLACEMENT, LUMBAR REGION Assessment/Plan CEFTRIAXONE IV DAILY FOR PYELONEPHRITIS FOLLOW UO CX ID APPRECIATED ADDING LIDODERM PATCH CYCLOBENZAPREIN AND OXYCODONE TID CORTISON/ADRENAL WORKUP IN PROGRESS
[2019-04-15] MEDS: LIDOCAINE 5% TOPICAL PATCH TP SCH (10:36)
--- NOTE | 2019-04-15 13:19 | CONSULT ---
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 She was diagnosed with E coli UTI and pyelonephritis for which Ceftriaxone was started. Renal US 04/12/19 shows B renal cysts, B renal central sinus lipomatosis, and L nonobstructing renal stone. Renal was consulted for hypokalemia, Endo was consulted for hypoadrenalism, and was consulted for UTI, renal stone and L pyelonephritis. She has not been seen by PT. She reports her pain is 6/10 (baseline 2-3/10) but has much improved since coming to hospital. Pain is described as stiffness, with chronic R foot paresthesias (unchanged during this exacerbation), into L buttock but not into LLE (new this exacerbation). Heat/ ice helps, and in the past she saw a chiropracter which helped temporarily. TIP and surgery in past helped as well; she had never done any PT. Physiatry is being consulted for further recommendations. 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 Cardio/Vascular: Yes: HTN Gastrointestinal: Yes: GERD Renal/: Yes: Renal Inusuff ...: No Musculoskeletal: Yes: Osteoarthritis - Past Surgical History Past Surgical History: Yes: Laminectomy, Nephrectomy - Alcohol/Substance Use Hx Alcohol Use: No - Smoking History Smoking history: Never smoked Have you smoked in the past 12 months: No - Social History Usual Living Arrangement: With Spouse (in house without steps to enter, and 12- 13 inside to bedroom/ bathroom) ADL: Independent (indepemdent in ADLs without AD) Home Medications - Allergies Allergies/Adverse Reactions: Allergies Allergy/AdvReac Type Severity Reaction Status Date / Time No Known Allergies Allergy Verified 04/12/19 09:41 - Home Medications Home Medications: Ambulatory Orders Amlodipine Besylate [Norvasc -] 10 mg PO DAILY 03/02/14 Atorvastatin Ca [Lipitor] 40 mg PO HS 03/02/14 Enalapril Maleate [Vasotec -] 20 mg PO DAILY 03/02/14 Potassium Chloride [K-Dur] 20 meq PO DAILY 03/02/14 Sertraline HCl [Zoloft] 100 mg PO DAILY 03/02/14 Spironolactone [Aldactone] 50 mg PO BID 03/02/14 Metoprolol Succinate [Toprol Xl] 50 mg PO DAILY 07/20/15 Hydrocodone/Acetaminophen [Hydrocodone-Acetamin 5-325 mg] 1 each PO Q6H #20 tablet MDD 4 02/25/19 Review of Systems Findings/Remarks: Denies current fevers, chills, changes in vision/ hearing/ mood, CP, SOB, abdominal pain, nausea, vomiting, constipation, diarrhea. Notes dysuria and urinary frequency, occasional bladder incontinence without bowel incontinence, R foot paresthesias and LBP as per HPI Physical Exam Vital Signs: Vital Signs Temperature 98.6 F 04/15/19 10:00 Pulse Rate 73 04/15/19 10:00 Respiratory Rate 18 04/15/19 10:00 Blood Pressure 149/96 04/15/19 10:00 O2 Sat by Pulse Oximetry (%) 96 04/15/19 08:51 Musculoskeletal: Yes: Other (General: calm elderly F sitting EOB, NAD , AAO x3 Spine: +pain in lumbar extension, relieved by lumbar flexion; no tenderness lumbar vertrebral spine/ B lumbar paraspinals/ B SI, +tenderness L gluteals without B GT tenderness N/M: B shoulder flexion to 140 degrees, 5-/5 BUE/ BLE including PF; Pinprick decreased R lateral foot then intact BUE/ BLE Extremities: no BLE pitting edema, no B calf tenderness) Labs: CBC, BMP 04/13/19 06:35 04/15/19 07:09 Imaging - Results Ultrasound: Report Reviewed (Renal US as per HPI) Assessment/Plan Impression: 1) Deficits mobility/ ADLs 2) Gait abnormality 3) Likely lumbar arthropathy versus spinal stenosis with hx lumbar surgery 4) Chronic R lumbar radiculopathy; L LB pain likely infection as opposed to radiculopathy 5) E coli UTI/ pyelonephritis 6) B renal cysts, B renal central sinus lipomatosis, and L nonobstructing renal stone 7) Hypokalemia 8) 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 9) hx HTN, lipidemia 10) hx GERD 11) Overweight 12) No documented flu shot/ pneumovax Recommendations: 1) Flexion- based PT for core stretching strengthening ROM and modalities (heat , ice, TENS; no US given active infection) 2) Falls, safety precautions 3) Cardiac precautions 4) May trial lumbar corset prn if pain worsens 5) Currently on Oxycodone, Lidoderm and cyclobenzaprine; consider gabapentin if pain persists (start 100mg TID and titrate up to max 1200mg TID as tolerated) 6) TIP in future once cortisol levels stable 7) Nutrition consult for overweight 8) DVT ppx: on hep sc 9) Denies constipation on current bowel regimen 10) Continue plan per primary team 11) Consider lumbar imaging such as XR 12) F/u with Dr Friedman as outpt: [phone] option 1 13) May need MRI spine and EMG BLE as outpatient if pain persists, but would not perform now as pain subsiding 14) Discharge planning: likely will be able to return to home with services once medically stable Thank you for this referral.
--- NOTE | 2019-04-15 13:26 | PN ---
Progress Note, Physician History of Present Illness: Pt seen and examined at bedside. SHe is awake and alert. She feels better today. - Current Medication List Current Medications: Active Medications Acetaminophen (Tylenol -) 650 mg PO Q6H PRN PRN Reason: PAIN OR FEVER Last Admin: 04/12/19 23:40 Dose: 650 mg Amlodipine Besylate (Norvasc -) 10 mg PO DAILY [facility] Last Admin: 04/15/19 09:25 Dose: 10 mg Atorvastatin Calcium (Lipitor -) 40 mg PO HS [facility] Last Admin: 04/14/19 21:07 Dose: 40 mg Cyclobenzaprine HCl (Flexeril -) 10 mg PO Q8H PRN PRN Reason: MUSCLE SPASMS Last Admin: 04/13/19 00:33 Dose: 10 mg Docusate Sodium (Colace -) 300 mg PO HS [facility] Last Admin: 04/14/19 21:07 Dose: Not Given Enalapril Maleate (Vasotec -) 20 mg PO DAILY [facility] Last Admin: 04/15/19 09:27 Dose: 20 mg Heparin Sodium (Porcine) (Heparin -) 5,000 unit SQ BID [facility] Last Admin: 04/15/19 09:25 Dose: 5,000 unit Potassium Chloride (Potassium Chloride 10 Meq Premix Ivpb -) 10 meq in 100 mls @ 100 mls/hr IVPB Q60M ONE Last Admin: 04/12/19 21:04 Dose: 100 mls/hr Potassium Chloride (Potassium Chloride 10 Meq Premix Ivpb -) 10 meq in 100 mls @ 100 mls/hr IVPB Q60M ONE Last Admin: 04/12/19 22:11 Dose: 100 mls/hr Potassium Chloride (Potassium Chloride 10 Meq Premix Ivpb -) 10 meq in 100 mls @ 100 mls/hr IVPB Q60M ONE Last Admin: 04/12/19 22:32 Dose: 100 mls/hr Ceftriaxone Sodium 2 gm/ (Dextrose) 100 mls @ 200 mls/hr IVPB DAILY [facility]; Protocol Last Admin: 04/15/19 09:25 Dose: 200 mls/hr Lidocaine (Lidoderm Patch -) 1 patch TP DAILY [facility] Metoprolol Succinate (Toprol Xl -) 50 mg PO DAILY [facility] Last Admin: 04/15/19 09:25 Dose: 50 mg Miscellaneous (Lidoderm Patch Removal) 1 each MC DAILY@2200 [facility] Oxycodone HCl (Roxicodone -) 5 mg PO Q6H PRN PRN Reason: PAIN LEVEL 7 - 10 Last Admin: 04/14/19 23:17 Dose: 5 mg Potassium Chloride (K-Dur -) 40 meq PO BID [facility] Last Admin: 04/15/19 09:25 Dose: 40 meq Sertraline HCl (Zoloft -) 100 mg PO DAILY [facility] Last Admin: 04/15/19 09:25 Dose: 100 mg Spironolactone (Aldactone -) 50 mg PO BID [facility] Last Admin: 04/15/19 09:24 Dose: 50 mg - Objective Vital Signs: Vital Signs Temperature 98.6 F 04/15/19 10:00 Pulse Rate 73 04/15/19 10:00 Respiratory Rate 18 04/15/19 10:00 Blood Pressure 149/96 04/15/19 10:00 O2 Sat by Pulse Oximetry (%) 96 04/15/19 08:51 Constitutional: Yes: Calm Eyes: Yes: Conjunctiva Clear HENT: Yes: Atraumatic Neck: Yes: Supple Cardiovascular: Yes: S1, S2 Respiratory: Yes: CTA Bilaterally Gastrointestinal: Yes: Soft Genitourinary: Yes: WNL Musculoskeletal: Yes: WNL Edema: No Neurological: Yes: Oriented Psychiatric: Yes: Oriented Labs: CBC, BMP 04/13/19 06:35 04/15/19 07:09 Problem List - Problems (1) Hypokalemia Code(s): E87.6 - HYPOKALEMIA (2) Urinary tract infection Code(s): N39.0 - URINARY TRACT INFECTION, SITE NOT SPECIFIED Qualifiers: Urinary tract infection type: acute cystitis Assessment/Plan Current Medications Generic Name Dose Route Start Last Admin Trade Name Freq PRN Reason Stop Dose Admin Acetaminophen 650 mg 04/12/19 15:10 04/12/19 23:40 Tylenol - PO 650 mg Q6H PRN Administration PAIN OR FEVER Amlodipine Besylate 10 mg 04/13/19 10:00 04/15/19 09:25 Norvasc - PO 10 mg DAILY [facility] Administration Atorvastatin Calcium 40 mg 04/12/19 22:00 04/14/19 21:07 Lipitor - PO 40 mg HS [facility] Administration Cyclobenzaprine HCl 10 mg 04/12/19 15:11 04/13/19 00:33 Flexeril - PO 10 mg Q8H PRN Administration MUSCLE SPASMS Docusate Sodium 300 mg 04/12/19 22:00 04/14/19 21:07 Colace - PO Not Given HS [facility] Enalapril Maleate 20 mg 04/13/19 10:00 04/15/19 09:27 Vasotec - PO 20 mg DAILY [facility] Administration Heparin Sodium (Porcine) 5,000 unit 04/12/19 22:00 04/15/19 09:25 Heparin - SQ 5,000 unit BID [facility] Administration Potassium Chloride 10 meq in 100 mls @ 100 mls/hr 04/12/19 20:32 04/12/19 21: 04 Potassium Chloride 10 Meq Premix Ivpb - IVPB 100 mls/hr Q60M ONE Administration Potassium Chloride 10 meq in 100 mls @ 100 mls/hr 04/12/19 21:05 04/12/19 22: 11 Potassium Chloride 10 Meq Premix Ivpb - IVPB 100 mls/hr Q60M ONE Administration Potassium Chloride 10 meq in 100 mls @ 100 mls/hr 04/12/19 22:00 04/12/19 22: 32 Potassium Chloride 10 Meq Premix Ivpb - IVPB 100 mls/hr Q60M ONE Administration Ceftriaxone Sodium 2 gm/ 100 mls @ 200 mls/hr 04/13/19 11:45 04/15/19 09:25 Dextrose IVPB 200 mls/hr DAILY [facility] Administration Protocol Lidocaine 1 patch 04/15/19 10:00 Lidoderm Patch - TP DAILY [facility] Metoprolol Succinate 50 mg 04/13/19 10:00 04/15/19 09:25 Toprol Xl - PO 50 mg DAILY [facility] Administration Miscellaneous 1 each 04/15/19 22:00 Lidoderm Patch Removal MC DAILY@2200 [facility] Oxycodone HCl 5 mg 04/13/19 08:47 04/14/19 23:17 Roxicodone - PO 5 mg Q6H PRN Administration PAIN LEVEL 7 - 10 Potassium Chloride 40 meq 04/13/19 22:00 04/15/19 09:25 K-Dur - PO 40 meq BID [facility] Administration Sertraline HCl 100 mg 04/13/19 10:00 04/15/19 09:25 Zoloft - PO 100 mg DAILY [facility] Administration Spironolactone 50 mg 04/15/19 10:00 04/15/19 09:24 Aldactone - PO 50 mg BID [facility] Administration Impression 1. Hypokalemia 2. hx or partial nephrectomy 3. htn 4. back pain 5. uti 6. ckd Plan - potassium is improved - cont supplements - cont aldactone - endocrine workup in progress - will need outpt follow up
[2019-04-15] MEDS: ATORVASTATIN CA 40 MG TABLET (FP) PO SCH (21:29)
[2019-04-15] MEDS: oxyCODONE HCL 5 MG TABLET PO PRN (21:33)
[2019-04-15] MEDS ORDERED: LIDOCAINE PATCH REMOVAL MC SCH (22:00)
[2019-04-15] MEDS: DOCUSATE SODIUM 100 MG CAPSULE (FP) PO SCH (22:45)
--- NOTE | 2019-04-15 23:30 | PN ---
Progress Note, Physician Chief Complaint: back pain and cramps improved with improving k levels - Current Medication List Current Medications: Active Medications Acetaminophen (Tylenol -) 650 mg PO Q6H PRN PRN Reason: PAIN OR FEVER Last Admin: 04/12/19 23:40 Dose: 650 mg Amlodipine Besylate (Norvasc -) 10 mg PO DAILY [facility] Last Admin: 04/15/19 09:25 Dose: 10 mg Atorvastatin Calcium (Lipitor -) 40 mg PO HS [facility] Last Admin: 04/15/19 21:29 Dose: 40 mg Cyclobenzaprine HCl (Flexeril -) 10 mg PO Q8H PRN PRN Reason: MUSCLE SPASMS Last Admin: 04/13/19 00:33 Dose: 10 mg Docusate Sodium (Colace -) 300 mg PO HS [facility] Last Admin: 04/15/19 22:45 Dose: Not Given Enalapril Maleate (Vasotec -) 20 mg PO DAILY [facility] Last Admin: 04/15/19 09:27 Dose: 20 mg Heparin Sodium (Porcine) (Heparin -) 5,000 unit SQ BID [facility] Last Admin: 04/15/19 22:45 Dose: Not Given Potassium Chloride (Potassium Chloride 10 Meq Premix Ivpb -) 10 meq in 100 mls @ 100 mls/hr IVPB Q60M ONE Last Admin: 04/12/19 21:04 Dose: 100 mls/hr Potassium Chloride (Potassium Chloride 10 Meq Premix Ivpb -) 10 meq in 100 mls @ 100 mls/hr IVPB Q60M ONE Last Admin: 04/12/19 22:11 Dose: 100 mls/hr Potassium Chloride (Potassium Chloride 10 Meq Premix Ivpb -) 10 meq in 100 mls @ 100 mls/hr IVPB Q60M ONE Last Admin: 04/12/19 22:32 Dose: 100 mls/hr Ceftriaxone Sodium 2 gm/ (Dextrose) 100 mls @ 200 mls/hr IVPB DAILY [facility]; Protocol Last Admin: 04/15/19 09:25 Dose: 200 mls/hr Lidocaine (Lidoderm Patch -) 1 patch TP DAILY [facility] Last Admin: 04/15/19 10:36 Dose: 1 patch Metoprolol Succinate (Toprol Xl -) 50 mg PO DAILY [facility] Last Admin: 04/15/19 09:25 Dose: 50 mg Miscellaneous (Lidoderm Patch Removal) 1 each MC DAILY@2200 [facility] Last Admin: 04/15/19 21:30 Dose: 1 each Oxycodone HCl (Roxicodone -) 5 mg PO Q6H PRN PRN Reason: PAIN LEVEL 7 - 10 Last Admin: 04/15/19 21:33 Dose: 5 mg Potassium Chloride (K-Dur -) 40 meq PO BID [facility] Last Admin: 04/15/19 21:29 Dose: 40 meq Sertraline HCl (Zoloft -) 100 mg PO DAILY [facility] Last Admin: 04/15/19 09:25 Dose: 100 mg Spironolactone (Aldactone -) 50 mg PO BID [facility] Last Admin: 04/15/19 21:29 Dose: 50 mg - Objective Vital Signs: Vital Signs Temperature 97.7 F 04/15/19 21:34 Pulse Rate 70 04/15/19 21:34 Respiratory Rate 20 04/15/19 21:34 Blood Pressure 147/88 04/15/19 21:34 O2 Sat by Pulse Oximetry (%) 96 04/15/19 08:51 Constitutional: Yes: Calm Eyes: Yes: EOM Intact HENT: Yes: Normocephalic Neck: Yes: Trachea Midline Cardiovascular: Yes: Regular Rate and Rhythm Respiratory: Yes: CTA Bilaterally Gastrointestinal: Yes: Normal Bowel Sounds Genitourinary: Yes: WNL Musculoskeletal: Yes: WNL Extremities: Yes: WNL Edema: No Neurological: Yes: Alert, Oriented Labs: CBC, BMP 04/13/19 06:35 04/15/19 07:09 Problem List - Problems (1) Back pain Code(s): M54.9 - DORSALGIA, UNSPECIFIED Qualifiers: Back pain location: thoracic back pain (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 - OTHER ADRENOCORTICAL INSUFFICIENCY (3) Hypokalemia (4) Pyelonephritis Code(s): N12 - TUBULO-INTERSTITIAL NEPHRITIS, NOT SPCF ACUTE OR CHRONIC (5) Urinary tract infection Code(s): N39.0 - URINARY TRACT INFECTION, SITE NOT SPECIFIED Qualifiers: Urinary tract infection type: acute cystitis (6) Lumbar radicular pain Code(s): M54.16 - RADICULOPATHY, LUMBAR REGION (7) Primary hypoadrenalism (8) Hyperaldosteronism, unspecified Assessment/Plan Current Active Problems Back pain (Acute) Cortisol deficiency (Acute) Hypokalemia (Acute) Lumbago (Acute) Lumbago due to displacement of intervertebral disc (Acute) Primary hypoadrenalism (Acute) Pyelonephritis (Acute) Urinary tract infection (Acute) Abnormal Lab Results 04/14/19 04/15/19 06:30 07:09 Anion Gap 6 L BUN 19.1 H ACTH 5.1 L Laboratory Tests 04/14/19 04/14/19 04/15/19 06:30 11:48 07:09 Sodium 143 Potassium 3.7 Chloride 105 Carbon Dioxide 32 Anion Gap 6 L BUN 19.1 H Creatinine 0.6 Est GFR (CKD-EPI)AfAm 110.86 Est GFR (CKD-EPI)NonAf 95.65 Random Glucose 88 Cortisol 30 Minute 31.80 ACTH 5.1 L plan: normal glucocorticoid response likely hyperaldosteronism continue aldactone 50mg bid need repeat bmp outpatient follow up
[2019-04-15] MEDS: CYCLOBENZAPRINE HCL 10 MG TABLET (FP) PO PRN (23:34)
[2019-04-16] MEDS ORDERED: PT OWN MED DRAWER 7, Y5N ONE (06:48)
[2019-04-16 08:07] LABS: BLOOD UREA NITROGEN 19.3 mg/dL (7-18); CALCIUM 9.2 mg/dL (8.5-10.1); CREATININE 0.7 mg/dL (0.55-1.3); POTASSIUM 3.9 mmol/L (3.5-5.1)
[2019-04-16] MEDS: POTASSIUM CHLORIDE TABS 20 MEQ TABLET.ER (FP) PO SCH (09:16)
[2019-04-16] MEDS: SERTRALINE HCL 50 MG TABLET (FP) PO SCH (09:16)
[2019-04-16] MEDS: HEPARIN NA (PORCINE) 5,000 UNITS/ML 1ML VIAL SQ SCH (09:16)
[2019-04-16] MEDS: amLODIPine BESYLATE 10 MG TABLET (FP) PO SCH (09:16)
[2019-04-16] MEDS: SPIRONOLACTONE 25 MG TABLET (FP) PO SCH (09:16)
[2019-04-16] MEDS: CEFTRIAXONE 2 GM in DEXTROSE 5%-WATER 100 ML IVPB SCH (09:16)
[2019-04-16] MEDS: ENALAPRIL MALEATE 10 MG TABLET (FP) PO SCH (09:18)
[2019-04-16] MEDS: LIDOCAINE 5% TOPICAL PATCH TP SCH (09:19)
[2019-04-16 10:43] VITALS: BP 162/97; PULSE 75; TEMP 98.1
--- NOTE | 2019-04-16 10:57 | DS ---
Physical Examination Vital Signs: Vital Signs Temperature 98.1 F 04/16/19 10:00 Pulse Rate 75 04/16/19 10:00 Respiratory Rate 20 04/16/19 10:00 Blood Pressure 162/97 04/16/19 10:00 O2 Sat by Pulse Oximetry (%) 96 04/15/19 21:00 Findings/Remarks: STILL HAS BACK SPASMS, NO FEVERS Constitutional: Yes: No Distress Eyes: Yes: WNL HENT: Yes: WNL Neck: Yes: WNL Cardiovascular: Yes: Regular Rate and Rhythm Respiratory: Yes: WNL Gastrointestinal: Yes: WNL Musculoskeletal: Yes: Back Pain Edema: No Peripheral Pulses WNL: Yes Neurological: Yes: Other Labs: CBC, BMP 04/13/19 06:35 04/16/19 06:50 Discharge Summary Problems reviewed: Yes Reason For Visit: UTI Current Active Problems Back pain (Acute) Cortisol deficiency (Acute) Hyperaldosteronism, unspecified (Acute) Hypokalemia (Acute) Lumbago (Acute) Lumbago due to displacement of intervertebral disc (Acute) Primary hypoadrenalism (Acute) Pyelonephritis (Acute) Urinary tract infection (Acute) Procedures: Principal: LABS/SONO Hospital Course: TREATED FOR PYELONEPHRITIS WITH IV ABX, BACK LUMBAGO WITH MUSCLE RELAXERS, PO ABX AND F/U 1 WEEK OUTPATIENT Health Concerns: DISCUSSED, F/U 1 WEEK Condition: Stable - Instructions Diet, Activity, Other Instructions: LOW SODIUM SEE DR COLMENARES ON SaturdayApril FOR LABS 1PM Disposition: HOME - Home Medications Comprehensive Discharge Medication List: Ambulatory Orders Amlodipine Besylate [Norvasc -] 10 mg PO DAILY 03/02/14 Atorvastatin Ca [Lipitor] 40 mg PO HS 03/02/14 Enalapril Maleate [Vasotec -] 20 mg PO DAILY 03/02/14 Sertraline HCl [Zoloft] 100 mg PO DAILY 03/02/14 Spironolactone [Aldactone] 50 mg PO BID 03/02/14 Metoprolol Succinate [Toprol Xl] 50 mg PO DAILY 07/20/15 Hydrocodone/Acetaminophen [Hydrocodone-Acetamin 5-325 mg] 1 each PO Q6H #20 tablet MDD 4 02/25/19 Acetaminophen [Tylenol .Regular Strength -] 650 mg PO Q6H PRN tablet 04/16/19 Amlodipine Besylate [Norvasc -] 10 mg PO DAILY tablet 04/16/19 Atorvastatin Ca [Lipitor] 40 mg PO HS tablet 04/16/19 Cyclobenzaprine HCl [Flexeril -] 10 mg PO Q8H PRN #90 tablet 04/16/19 Docusate Sodium [Colace -] 300 mg PO HS #30 capsule 04/16/19 Enalapril Maleate [Vasotec -] 20 mg PO DAILY tablet 04/16/19 Lidocaine 5% Patch [Lidoderm -] 1 patch TP DAILY #30 patch 04/16/19 Metoprolol Succinate [Toprol XL -] 50 mg PO DAILY tab.sr.24h 04/16/19 Potassium Chloride [K-Dur -] 40 meq PO BID #60 tablet.er 04/16/19 Sertraline HCl [Zoloft -] 100 mg PO DAILY tablet 04/16/19 Spironolactone [Aldactone -] 50 mg PO BID #60 tablet 04/16/19 oxyCODONE HCL [Roxicodone -] 5 mg PO Q6H PRN tablet MDD 4 04/16/19 Prescription Drug Monitoring Program (I-STOP) results: I-STOP not reviewed (NO NARCOTIC SENT)
[2019-04-19 20:08] LABS: RENIN ACTIVITY(PRA) < 0.167 ng/mL/hr (0.167-5.380)
== END 2019-04-16 12:05 | disposition home or self-care (01) | DRG 690 ==
LOC: JER 09:36 → JERBED 12:39 → J7W 04-13 00:05
PROVIDERS: ADMIT Family Medicine; ATTEND Family Medicine
DX: N39.0 Urinary tract infection, site not specified (principal); E27.40 Unspecified adrenocortical insufficiency; E27.1 Primary adrenocortical insufficiency; N12 Tubulo-interstitial nephritis, not specified as acute or chronic; E87.6 Hypokalemia; E78.5 Hyperlipidemia, unspecified; K21.9 Gastro-esophageal reflux disease without esophagitis; M54.9 Dorsalgia, unspecified; D72.829 Elevated white blood cell count, unspecified; N20.0 Calculus of kidney; I12.9 Hypertensive chronic kidney disease with stage 1 through stage 4 chronic kidney disease, or unspecified chronic kidney disease; N18.9 Chronic kidney disease, unspecified; E26.01 Conn's syndrome; M51.16 Intervertebral disc disorders with radiculopathy, lumbar region; R26.89 Other abnormalities of gait and mobility; B96.29 Other Escherichia coli [E. coli] as the cause of diseases classified elsewhere; N28.1 Cyst of kidney, acquired; Z85.53 Personal history of malignant neoplasm of renal pelvis; Z90.5 Acquired absence of kidney
CPT/HCPCS: 36415; 76775-TC; 80048; 80053; 81003; 82024; 82088; 82436; 82533; 83605; 83735; 83930; 83935; 84132; 84133; 84244; 84300; 85025; 85027; 87040; 87086; 87186; 97116-GP; 97161-GP; 99283-25; J0834; J1644; J7030

== ENCOUNTER 2019-07-19 09:46 | Inpatient (IN) | payer OTHER, BC ==
--- NOTE | 2019-07-19 10:09 | PDOC ---
History of Present Illness - General Chief Complaint: Back Pain Stated Complaint: PAIN Time Seen by Provider: 07/19/19 10:08 History Source: Patient - History of Present Illness Timing/Duration: other Associated Symptoms: reports: malaise Past History - Past Medical History Allergies/Adverse Reactions: Allergies Allergy/AdvReac Type Severity Reaction Status Date / Time No Known Allergies Allergy Verified 07/19/19 10:00 Home Medications: Ambulatory Orders Amlodipine Besylate [Norvasc -] 10 mg PO DAILY 03/02/14 Atorvastatin Ca [Lipitor] 40 mg PO HS 03/02/14 Metoprolol Succinate [Toprol Xl] 50 mg PO DAILY 07/20/15 Hydrocodone/Acetaminophen [Hydrocodone-Acetamin 5-325 mg] 1 each PO Q6H #20 tablet MDD 4 02/25/19 Acetaminophen [Tylenol .Regular Strength -] 650 mg PO Q6H PRN tablet 04/16/19 Atorvastatin Ca [Lipitor] 40 mg PO HS tablet 04/16/19 Cyclobenzaprine HCl [Flexeril -] 10 mg PO Q8H PRN #90 tablet 04/16/19 Docusate Sodium [Colace -] 300 mg PO HS #30 capsule 04/16/19 Enalapril Maleate [Vasotec -] 20 mg PO DAILY tablet 04/16/19 Lidocaine 5% Patch [Lidoderm -] 1 patch TP DAILY #30 patch 04/16/19 Potassium Chloride [K-Dur -] 40 meq PO BID #60 tablet.er 04/16/19 Sertraline HCl [Zoloft -] 100 mg PO DAILY tablet 04/16/19 oxyCODONE HCL [Roxicodone -] 5 mg PO Q6H PRN tablet MDD 4 04/16/19 Spironolactone [Aldactone -] 150 mg PO BID 07/19/19 Anemia: No Asthma: No Cancer: Yes (L RENAL) Cardiac Disorders: No CVA: No COPD: No CHF: No Dementia: No Diabetes: No GI Disorders: No Disorders: Yes (FIBROIDS) HTN: Yes Hypercholesterolemia: Yes Liver Disease: No Seizures: No Thyroid Disease: No Other medical history: chronic back pain - Surgical History Abdominal Surgery: Yes Appendectomy: No Cardiac Surgery: No Cholecystectomy: Yes Lung Surgery: No Neurologic Surgery: Yes (BACK SX) Orthopedic Surgery: Yes - Psycho Social/Smoking Cessation Hx Smoking History: Never smoked Have you smoked in the past 12 months: No Hx Alcohol Use: No Drug/Substance Use Hx: No Substance Use Type: None Hx Substance Use Treatment: No Review of Systems - Review of Systems Constitutional: Yes: Malaise, Weakness. No: Chills, Fever Respiratory: No: Cough, Shortness of Breath Cardiac (ROS): No: Chest Pain ABD/GI: No: Diarrhea, Nausea, Vomiting, Abdominal cramping : No: Dysuria, Hematuria Neurological: Yes: Dizziness. No: Headache, Numbness, Weakness *Physical Exam - Vital Signs Last Vital Signs Temp Pulse Resp BP Pulse Ox 98 F 81 18 169/99 99 07/19/19 09:57 07/19/19 09:57 07/19/19 09:57 07/19/19 09:57 07/19/19 09:57 - Physical Exam General Appearance: Yes: Appropriately Dressed. No: Apparent Distress HEENT: positive: Normal Voice Neck: positive: Supple Respiratory/Chest: positive: Lungs Clear, Normal Breath Sounds. negative: Respiratory Distress Cardiovascular: positive: Regular Rate, S1, S2 Gastrointestinal/Abdominal: positive: Soft. 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 Also complaining of rash to R leg, not painful or pruritic. No CP, SOB, DAWSON, n/v/f/c, abd pain, change in BM or dysuria. 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 See exam Fatigue Unlikely adrenal crises given clinical findings but will check electrolytes/ cortisol/ACTH lvls, r/o influenza, r/o infectious etiology, unlikely cardiac -ekg -cxr -labs/ua -IVF -discuss dispo w/ referring PMD, Dr Courtney Rash Hemorrhagic-tipped pinpoint papules to RLE of unclear etiology Upon discharge, will refer to derm 07/19/19 11:31 Labs unremarkable except for positive UTI. Patient now reports that she is actually been on cipro for 4 days after being diagnosed with a UTI by Dr. Maxwell Staton. Per [facility], ecoli was resistant to Levaquin, no Cipro included on sensitivity. Will give a dose of Keflex at this time. No flank pain , n/v or fever and no leukocytosis to warrant IV abx at this time. JONAH Ng from Dr. Courtney's contacted me and given results. State Dr. Courtney will come see patient in ER 07/19/19 11:[address] Courtney, patient should be admitted to his service for further evaluation of her weakness and fatigue as family reported to MD that patient's condition make it hard for her to carry out her ADLs as she is so weak that at times she is unable to ambulate at home. JONAH Ng to place orders including for appropriate consults Discharge - Discharge Information Problems reviewed: Yes Clinical Impression/Diagnosis: Malaise and fatigue UTI (urinary tract infection) Qualifiers: Urinary tract infection type: site unspecified Hematuria presence: without hematuria Qualified Code(s): N39.0 - Urinary tract infection, site not specified Condition: Stable - Admission Yes - Follow up/Referral - Patient Discharge Instructions - Post Discharge Activity
[2019-07-19] MEDS ORDERED: SODIUM CHLORIDE 1,000 ML IV STA (10:17)
[2019-07-19 10:46] LABS: BASO % 0.9 % (0-2.0); EOS % 2.2 % (0-4.5); HEMOGLOBIN 14.3 GM/dL (10.7-15.3); LYMPH % 19.6 % (8-40); MCH 26.4 pg (25.7-33.7); MCHC 33.3 g/dl (32.0-36.0); MEAN CELL VOLUME 79.3 fl (80-96); MEAN PLT VOLUME 7.7 fl (7.5-11.1); MONO % 8.4 % (3.8-10.2); NEUT % 68.9 % (42.8-82.8); PLATELET COUNT 374 K/MM3 (134-434); RBC 5.42 M/mm3 (3.60-5.2); WHITE BLOOD COUNT 7.1 K/mm3 (4.0-10.0)
[2019-07-19 10:48] LABS: EPI CELLS 4.3 /HPF (0-5/HPF); HYALINE CASTS 20 /lpf (0-8); PH,URINE 6.5 (5.0-8.0); URINE APPEARANCE CLOUDY; URINE BILIRUBIN NEGATIVE (NEGATIVE); URINE COLOR YELLOW; URINE GLUCOSE (UA) NEGATIVE (NEGATIVE); URINE KETONE NEGATIVE (NEGATIVE); URINE LEUK ESTERASE 2+ (NEGATIVE); URINE NITRITE POSITIVE (NEGATIVE); URINE PROTEIN TRACE (NEGATIVE); URINE RBC 3 /hpf (0-4); URINE UROBILINOGEN 0.2 mg/dL (0.2-1.0); URINE WBC 82 /hpf (0-5)
[2019-07-19 11:07] LABS: ALBUMIN 3.3 g/dl (3.4-5.0); BILIRUBIN,TOTAL 0.4 mg/dL (0.2-1); BLOOD UREA NITROGEN 24.9 mg/dL (7-18); CALCIUM 9.5 mg/dL (8.5-10.1); CREATININE 0.8 mg/dL (0.55-1.3); POTASSIUM 3.8 mmol/L (3.5-5.1); TOT PROT 7.3 g/dl (6.4-8.2)
[2019-07-19 11:17] LABS: MAGNESIUM 2.1 mg/dL (1.8-2.4); PHOSPHOROUS 3.3 mg/dL (2.5-4.9)
[2019-07-19] MEDS ORDERED: CEPHALEXIN MONOHYDRATE 500 MG CAPSULE (UD) PO ONE (11:26)
[2019-07-19] MEDS ORDERED: CEPHALEXIN MONOHYDRATE 250 MG CAPSULE (FP) ONE (11:30)
[2019-07-19] MEDS ORDERED: ACETAMINOPHEN 325 MG TABLET (FP) PO PRN (12:54)
--- NOTE | 2019-07-19 12:54 | HP ---
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 Patient presented to ER after experiencing fatigue and weakness. Patient also is complaining of lower extremity weakness x 6 months getting progressively worse. She states having lower extremity weakness with R>L. Patient followed by Neurology as outpatient and has been having PT with little effect. Denies having frequent falls. Patient also recently seen by Urologist and started on Ciprofloxacin for UTI. 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 Cardiovascular: Yes: HTN Gastrointestinal: Yes: GERD Renal/: Yes: Renal Inusuff Musculoskeletal: Yes: Osteoarthritis - Past Surgical History Past Surgical History: Yes: Laminectomy, Nephrectomy - Smoking History Smoking history: Never smoked Have you smoked in the past 12 months: No - Alcohol/Substance Use Hx Alcohol Use: No - Social History Usual Living Arrangement: Yes: With Spouse ADL: Independent (indepemdent in ADLs without AD) History of Recent Travel: No Home Medications - Allergies Allergies/Adverse Reactions: Allergies Allergy/AdvReac Type Severity Reaction Status Date / Time No Known Allergies Allergy Verified 07/19/19 10:00 - Home Medications Home Medications: Ambulatory Orders Amlodipine Besylate [Norvasc -] 10 mg PO DAILY 03/02/14 Atorvastatin Ca [Lipitor] 40 mg PO HS 03/02/14 Metoprolol Succinate [Toprol Xl] 50 mg PO DAILY 07/20/15 Hydrocodone/Acetaminophen [Hydrocodone-Acetamin 5-325 mg] 1 each PO Q6H #20 tablet MDD 4 02/25/19 Acetaminophen [Tylenol .Regular Strength -] 650 mg PO Q6H PRN tablet 04/16/19 Atorvastatin Ca [Lipitor] 40 mg PO HS tablet 04/16/19 Cyclobenzaprine HCl [Flexeril -] 10 mg PO Q8H PRN #90 tablet 04/16/19 Docusate Sodium [Colace -] 300 mg PO HS #30 capsule 04/16/19 Enalapril Maleate [Vasotec -] 20 mg PO DAILY tablet 04/16/19 Lidocaine 5% Patch [Lidoderm -] 1 patch TP DAILY #30 patch 04/16/19 Potassium Chloride [K-Dur -] 40 meq PO BID #60 tablet.er 04/16/19 Sertraline HCl [Zoloft -] 100 mg PO DAILY tablet 04/16/19 oxyCODONE HCL [Roxicodone -] 5 mg PO Q6H PRN tablet MDD 4 04/16/19 Spironolactone [Aldactone -] 150 mg PO BID 07/19/19 Review of Systems - Review of Systems Constitutional: reports: Weakness Eyes: reports: No Symptoms HENT: reports: No Symptoms Neck: reports: No Symptoms Cardiovascular: reports: No Symptoms Respiratory: reports: No Symptoms Gastrointestinal: reports: No Symptoms Genitourinary: reports: No Symptoms Breasts: reports: No Symptoms Reported Musculoskeletal: reports: Back Pain, Muscle Weakness Integumentary: reports: Rash (RLE) Neurological: reports: Numbness (b/l LE) Endocrine: reports: No Symptoms Hematology/Lymphatic: reports: No Symptoms Psychiatric: reports: No Symptoms Physical Examination Vital Signs: Vital Signs Temperature 98.6 F 07/19/19 12:38 Pulse Rate 89 07/19/19 12:38 Respiratory Rate 07/19/19 12:38 Blood Pressure 159/99 07/19/19 12:38 O2 Sat by Pulse Oximetry (%) 100 07/19/19 12:38 Constitutional: Yes: No Distress, Calm Eyes: Yes: Conjunctiva Clear HENT: Yes: Atraumatic Cardiovascular: Yes: Regular Rate and Rhythm Respiratory: Yes: Regular, CTA Bilaterally Gastrointestinal: Yes: Normal Bowel Sounds, Soft Musculoskeletal: Yes: Back Pain, Muscle Weakness Extremities: Yes: WNL Edema: No Neurological: Yes: Alert, Oriented, Weakness (b/l lower extremity R>L) Psychiatric: Yes: Alert, Oriented Labs: CBC, BMP 07/19/19 10:28 07/19/19 10:28 Problem List - Problems (1) Malaise and fatigue Assessment/Plan: -UA shows 2+ leuks, positive nitrate -UC pending -no leukocytosis -Influenza neg Code(s): R53.81 - OTHER MALAISE; R53.83 - OTHER FATIGUE (2) Urinary tract infection Assessment/Plan: -UA shows 2+ leuks, positive nitrate -UC pending -no leukocytosis -received STAT dose of Keflex in ER -taking PO cipro at home, will wait for UC before starting ABT Code(s): N39.0 - URINARY TRACT INFECTION, SITE NOT SPECIFIED Qualifiers: Urinary tract infection type: site unspecified Hematuria presence: without hematuria Qualified Code(s): N39.0 - Urinary tract infection, site not specified (3) Back pain Assessment/Plan: -Neurology consult -PT -fall precautions Code(s): M54.9 - DORSALGIA, UNSPECIFIED Qualifiers: Back pain location: thoracic back pain (4) Cortisol deficiency Assessment/Plan: -Spironolactone -Endocrinology consult Code(s): E27.49 - OTHER ADRENOCORTICAL INSUFFICIENCY (5) Lumbago Assessment/Plan: -Neurology consult -fall precaution -PT Code(s): M54.5 - LOW BACK PAIN (6) HTN (hypertension) Assessment/Plan: -Enalapril, Amlodipine, Metoprolol -low Na diet Code(s): I10 - ESSENTIAL (PRIMARY) HYPERTENSION Assessment/Plan see problem list dvt ppx
[2019-07-19 13:26] VITALS: BMI 25.5
[2019-07-19] MEDS ORDERED: ENALAPRIL MALEATE 10 MG TABLET (FP) PO ONE (16:30)
[2019-07-19] MEDS ORDERED: amLODIPine BESYLATE 5 MG TABLET (FP) PO ONE (16:30)
--- NOTE | 2019-07-19 21:02 | CON.NEURO ---
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 Cardio/Vascular: Yes: HTN Gastrointestinal: Yes: GERD Renal/: Yes: Renal Inusuff ...: No Musculoskeletal: Yes: Osteoarthritis - Past Surgical History Past Surgical History: Yes: Laminectomy, Nephrectomy - Alcohol/Substance Use Hx Alcohol Use: No - Smoking History Smoking history: Never smoked Have you smoked in the past 12 months: No - Social History Usual Living Arrangement: With Spouse (in house without steps to enter, and 12- 13 inside to bedroom/ bathroom) ADL: Independent (indepemdent in ADLs without AD) History of Recent Travel: No Home Medications - Allergies Allergies/Adverse Reactions: Allergies Allergy/AdvReac Type Severity Reaction Status Date / Time No Known Allergies Allergy Verified 07/19/19 10:00 - Home Medications Home Medications: Ambulatory Orders Amlodipine Besylate [Norvasc -] 10 mg PO DAILY 03/02/14 Atorvastatin Ca [Lipitor] 40 mg PO HS 03/02/14 Metoprolol Succinate [Toprol Xl] 50 mg PO DAILY 07/20/15 Hydrocodone/Acetaminophen [Hydrocodone-Acetamin 5-325 mg] 1 each PO Q6H #20 tablet MDD 4 02/25/19 Acetaminophen [Tylenol .Regular Strength -] 650 mg PO Q6H PRN tablet 04/16/19 Atorvastatin Ca [Lipitor] 40 mg PO HS tablet 04/16/19 Cyclobenzaprine HCl [Flexeril -] 10 mg PO Q8H PRN #90 tablet 04/16/19 Docusate Sodium [Colace -] 300 mg PO HS #30 capsule 04/16/19 Enalapril Maleate [Vasotec -] 20 mg PO DAILY tablet 04/16/19 Lidocaine 5% Patch [Lidoderm -] 1 patch TP DAILY #30 patch 04/16/19 Potassium Chloride [K-Dur -] 40 meq PO BID #60 tablet.er 04/16/19 Sertraline HCl [Zoloft -] 100 mg PO DAILY tablet 04/16/19 oxyCODONE HCL [Roxicodone -] 5 mg PO Q6H PRN tablet MDD 4 04/16/19 Spironolactone [Aldactone -] 150 mg PO BID 07/19/19 Family Medical History Family History: Unremarkable Review of Systems - Review of Systems Constitutional: reports: No Symptoms Eyes: reports: No Symptoms Musculoskeletal: reports: Back Pain, Extremity Pain, Joint Pain Physical Exam-Neuro Vital Signs: Vital Signs Temperature 98.2 F 07/19/19 17:02 Pulse Rate 91 H 07/19/19 17:02 Respiratory Rate 18 07/19/19 17:02 Blood Pressure 146/98 07/19/19 17:02 O2 Sat by Pulse Oximetry (%) 100 07/19/19 16:04 Labs: CBC, BMP 07/19/19 10:28 07/19/19 10:28 - Neuro Exam Level Of Consciousness: Yes: Oriented to Person, Oriented to Place, Oriented to Time Eyes: Yes: PERRLA Speech: WNL Dominant Hand: Right DTR's: 1+ Left Bicep, 1+ Right Bicep, 1+ Left Brachioradialis, 1+ Right Brachioradialis Response to light touch: Normal Response to pain prick: Normal Response to temperature: Normal Response to vibration: Abnormal Motor Strength: 3/5: Left Arm, Right Arm, Left Leg, Right Leg Imaging - Results MRI: Image Reviewed Problem List - Problems (1) Lumbar radicular pain Assessment/Plan: Multifactorial Spinal 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 Fall precautions 2 .Blood work 3. PT 4. Neurontin 5. will arrange for epidural trigger injections as OP Thanks Zaira Bonner Code(s): M54.16 - RADICULOPATHY, LUMBAR REGION
[2019-07-19] MEDS: SPIRONOLACTONE 25 MG TABLET (FP) PO SCH (21:20)
[2019-07-19] MEDS: HEPARIN NA (PORCINE) 5,000 UNITS/ML 1ML VIAL SQ SCH ×2 (21:21→21:28)
[2019-07-19] MEDS: ATORVASTATIN CA 40 MG TABLET (FP) PO SCH (21:21)
[2019-07-20] MEDS ORDERED: BACITRACIN 15 GM TUBE TOPICAL OINTMENT TP ONE (00:33)
[2019-07-20] MEDS ORDERED: COSYNTROPIN 0.25 MG VIAL IVPUSH ONE (06:00)
--- NOTE | 2019-07-20 07:23 | PN ---
Progress Note, Physician - Current Medication List Current Medications: Active Medications Acetaminophen (Tylenol -) 650 mg PO Q6H PRN PRN Reason: PAIN OR FEVER Last Admin: 07/19/19 21:29 Dose: 650 mg Amlodipine Besylate (Norvasc -) 5 mg PO DAILY [facility] Atorvastatin Calcium (Lipitor -) 40 mg PO HS [facility] Last Admin: 07/19/19 21:21 Dose: 40 mg Enalapril Maleate (Vasotec -) 20 mg PO DAILY [facility] Heparin Sodium (Porcine) (Heparin -) 5,000 unit SQ BID [facility] Last Admin: 07/19/19 21:28 Dose: Not Given Metoprolol Succinate (Toprol Xl -) 50 mg PO DAILY [facility] Sertraline HCl (Zoloft -) 100 mg PO DAILY [facility] Spironolactone (Aldactone -) 150 mg PO BID [facility] Last Admin: 07/19/19 21:20 Dose: 150 mg - Objective Vital Signs: Vital Signs Temperature 97.7 F 07/20/19 05:00 Pulse Rate 65 07/20/19 05:00 Respiratory Rate 18 07/20/19 05:00 Blood Pressure 144/87 07/20/19 05:00 O2 Sat by Pulse Oximetry (%) 95 07/19/19 21:00 Labs: CBC, BMP 07/19/19 10:28 07/19/19 10:28
[2019-07-20 08:32] LABS: BASO % 1.2 % (0-2.0); EOS % 2.6 % (0-4.5); HEMATOCRIT 42.2 % (32.4-45.2); HEMOGLOBIN 13.9 GM/dL (10.7-15.3); LYMPH % 26.2 % (8-40); MCH 26.3 pg (25.7-33.7); MCHC 32.9 g/dl (32.0-36.0); PLATELET COUNT 384 K/MM3 (134-434); RBC 5.28 M/mm3 (3.60-5.2); RDW 16.6 % (11.6-15.6); WHITE BLOOD COUNT 6.9 K/mm3 (4.0-10.0)
[2019-07-20 09:06] LABS: BILIRUBIN,TOTAL 0.4 mg/dL (0.2-1); BLOOD UREA NITROGEN 20.4 mg/dL (7-18); CALCIUM 9.3 mg/dL (8.5-10.1); CREATININE 0.8 mg/dL (0.55-1.3); MAGNESIUM 2.4 mg/dL (1.8-2.4); PHOSPHOROUS 3.8 mg/dL (2.5-4.9); POTASSIUM 4.1 mmol/L (3.5-5.1); TOT PROT 6.7 g/dl (6.4-8.2)
[2019-07-20] MEDS: HEPARIN NA (PORCINE) 5,000 UNITS/ML 1ML VIAL SQ SCH ×2 (10:51→21:16)
[2019-07-20] MEDS: ENALAPRIL MALEATE 10 MG TABLET (FP) PO SCH (10:51)
[2019-07-20] MEDS: SPIRONOLACTONE 25 MG TABLET (FP) PO SCH ×2 (10:51→21:17)
[2019-07-20] MEDS: SERTRALINE HCL 50 MG TABLET (FP) PO SCH (10:52)
[2019-07-20] MEDS: amLODIPine BESYLATE 5 MG TABLET (FP) PO SCH (10:52)
--- NOTE | 2019-07-20 11:17 | PN ---
Progress Note, Physician Chief Complaint: Lower Extremity Weakness Cortical Insufficiency History of Present Illness: Previous notes and events reviewed awake and alert NAD complain of weakness RLE complain of back pain - Current Medication List Current Medications: Active Medications Acetaminophen (Tylenol -) 650 mg PO Q6H PRN PRN Reason: PAIN OR FEVER Last Admin: 07/19/19 21:29 Dose: 650 mg Amlodipine Besylate (Norvasc -) 5 mg PO DAILY [facility] Last Admin: 07/20/19 10:52 Dose: 5 mg Atorvastatin Calcium (Lipitor -) 40 mg PO HS [facility] Last Admin: 07/19/19 21:21 Dose: 40 mg Enalapril Maleate (Vasotec -) 20 mg PO DAILY [facility] Last Admin: 07/20/19 10:51 Dose: 20 mg Heparin Sodium (Porcine) (Heparin -) 5,000 unit SQ BID [facility] Last Admin: 07/20/19 10:51 Dose: 5,000 unit Metoprolol Succinate (Toprol Xl -) 50 mg PO DAILY [facility] Last Admin: 07/20/19 10:52 Dose: 50 mg Sertraline HCl (Zoloft -) 100 mg PO DAILY [facility] Last Admin: 07/20/19 10:52 Dose: 100 mg Spironolactone (Aldactone -) 150 mg PO BID [facility] Last Admin: 07/20/19 10:51 Dose: 150 mg - Objective Vital Signs: Vital Signs Temperature 97.7 F 07/20/19 05:00 Pulse Rate 65 07/20/19 05:00 Respiratory Rate 18 07/20/19 05:00 Blood Pressure 144/87 07/20/19 05:00 O2 Sat by Pulse Oximetry (%) 95 07/19/19 21:00 Constitutional: Yes: No Distress, Calm Eyes: Yes: Conjunctiva Clear HENT: Yes: Atraumatic Cardiovascular: Yes: Regular Rate and Rhythm Respiratory: Yes: Regular, CTA Bilaterally Gastrointestinal: Yes: Normal Bowel Sounds, Soft Musculoskeletal: Yes: Back Pain, Muscle Weakness Extremities: Yes: WNL Edema: No Integumentary: Yes: Rash (rle) Neurological: Yes: Alert, Oriented, Weakness (RLE) Psychiatric: Yes: Alert Labs: CBC, BMP 07/20/19 06:40 07/20/19 06:00 Problem List - Problems (1) Malaise and fatigue Assessment/Plan: -UA shows 2+ leuks, positive nitrate -UC pending -no leukocytosis -Influenza neg Code(s): R53.81 - OTHER MALAISE; R53.83 - OTHER FATIGUE (2) Urinary tract infection Assessment/Plan: -UA shows 2+ leuks, positive nitrate -UC pending -no leukocytosis -received STAT dose of Keflex in ER -taking PO cipro at home, will wait for UC before starting ABT -Urology consult Code(s): N39.0 - URINARY TRACT INFECTION, SITE NOT SPECIFIED Qualifiers: Urinary tract infection type: site unspecified Hematuria presence: without hematuria Qualified Code(s): N39.0 - Urinary tract infection, site not specified (3) Back pain Assessment/Plan: -Neurology consult -PT -fall precautions Code(s): M54.9 - DORSALGIA, UNSPECIFIED Qualifiers: Back pain location: thoracic back pain (4) Cortisol deficiency Assessment/Plan: -Spironolactone -Endocrinology consult -Cortisol levels collected, results pending Code(s): E27.49 - OTHER ADRENOCORTICAL INSUFFICIENCY (5) Lumbago Assessment/Plan: -Neurology consult -fall precaution -PT Code(s): M54.5 - LOW BACK PAIN (6) HTN (hypertension) Assessment/Plan: -Enalapril, Amlodipine, Metoprolol -low Na diet Code(s): I10 - ESSENTIAL (PRIMARY) HYPERTENSION Assessment/Plan see problem list dvt ppx
--- NOTE | 2019-07-20 11:31 | EKG ---
Test Reason : Blood Pressure : / mmHG Vent. Rate : 082 BPM Atrial Rate : 082 BPM P-R Int : 160 ms QRS Dur : 084 ms QT Int : 394 ms P-R-T Axes : 041 026 038 degrees QTc Int : 460 ms NORMAL SINUS RHYTHM NORMAL ECG WHEN COMPARED WITH ECG OF 05-DEC-2007 07:50, NO SIGNIFICANT CHANGE WAS FOUND Confirmed by MIR KIM MD ([id number]) on 07/20/2019 11:31:47 AM Referred By: Confirmed By:MIR KIM MD
--- NOTE | 2019-07-20 14:28 | CONSULT ---
Consult Consult Specialty:: PM&R Dr Neil for Dr Friedman - History of Present Illness Chief Complaint: LBP into RLE History of Present Illness: This is a 63 year old woman with a medical history of HTN, lipidemia, GERD, s/p nephrectomy, adrenal tumor s/p resection, cortisol deficiency, chronic LBP s/p R L5 laminectomy, who is known to Physiatry from previous consults, who presented to the ED 07/19/19 with worsening LBP. She had been seen by Physiatry 04/15/19 for LBP, at which time she was recommended for outpt EMG (which was not performed) and outpt PT (she did 4 sessions without improvement in pain). 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 MRI lumbar spine 12/23/18 shows multilevel disc desiccation/ DDD with B L4 foraminal narrowing and R S1 nerve compression, s/p R L5 laminectomy. MRI cervical spine 12/23/18 shows DDD/ DJD with posterior osteophyte complexes. This hospital course, she was seen by Neurology consult, who recommended PT. Physiatry is being consulted for further recommendations; Physiatry ordered EMG which was performed today as well. 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 Cardio/Vascular: Yes: HTN Gastrointestinal: Yes: GERD Renal/: Yes: Renal Inusuff ...: No Musculoskeletal: Yes: Osteoarthritis - Past Surgical History Past Surgical History: Yes: Laminectomy, Nephrectomy - Alcohol/Substance Use Hx Alcohol Use: No - Smoking History Smoking history: Never smoked Have you smoked in the past 12 months: No - Social History Usual Living Arrangement: With Spouse (in house without steps to enter, and 12- 13 inside to bedroom/ bathroom) ADL: Independent (independent in ADLs without AD) History of Recent Travel: No Home Medications - Allergies Allergies/Adverse Reactions: Allergies Allergy/AdvReac Type Severity Reaction Status Date / Time No Known Allergies Allergy Verified 07/19/19 10:00 - Home Medications Home Medications: Ambulatory Orders Amlodipine Besylate [Norvasc -] 10 mg PO DAILY 03/02/14 Atorvastatin Ca [Lipitor] 40 mg PO HS 03/02/14 Metoprolol Succinate [Toprol Xl] 50 mg PO DAILY 07/20/15 Hydrocodone/Acetaminophen [Hydrocodone-Acetamin 5-325 mg] 1 each PO Q6H #20 tablet MDD 4 02/25/19 Acetaminophen [Tylenol .Regular Strength -] 650 mg PO Q6H PRN tablet 04/16/19 Atorvastatin Ca [Lipitor] 40 mg PO HS tablet 04/16/19 Cyclobenzaprine HCl [Flexeril -] 10 mg PO Q8H PRN #90 tablet 04/16/19 Docusate Sodium [Colace -] 300 mg PO HS #30 capsule 04/16/19 Enalapril Maleate [Vasotec -] 20 mg PO DAILY tablet 04/16/19 Lidocaine 5% Patch [Lidoderm -] 1 patch TP DAILY #30 patch 04/16/19 Potassium Chloride [K-Dur -] 40 meq PO BID #60 tablet.er 04/16/19 Sertraline HCl [Zoloft -] 100 mg PO DAILY tablet 04/16/19 oxyCODONE HCL [Roxicodone -] 5 mg PO Q6H PRN tablet MDD 4 04/16/19 Spironolactone [Aldactone -] 150 mg PO BID 07/19/19 Review of Systems Findings/Remarks: Denies fevers, chills, changes in vision/ hearing/ mood, CP, SOB, abdominal pain , bowel/ bladder incontinence. Ongoing LBP into L buttock and down R lateral leg into calf, described as cramping, with R sole foot tingling. Physical Exam Vital Signs: Vital Signs Temperature 97.7 F 07/20/19 05:00 Pulse Rate 65 07/20/19 05:00 Respiratory Rate 18 07/20/19 05:00 Blood Pressure 144/87 07/20/19 05:00 O2 Sat by Pulse Oximetry (%) 95 07/19/19 21:00 Musculoskeletal: Yes: Other (calm elderly F sitting in chair, Sit--> Stand and Chair--> Bed Independently; 4+/5 BLE; no BLE pitting edema, no B calf tenderness, +R lower leg skin changes/ excoriations) Labs: CBC, BMP 07/20/19 06:40 07/20/19 06:00 Imaging - Results MRI: Report Reviewed (as per HPI) Assessment/Plan Electrodiagnostics were performed, please see scanned images for details. This was an abnormal study. There is electrophysiological evidence of a R L4 radiculopathy which is chronic and active. There is also possibly R S1 radiculapathy, as the R H reflex is slightly prolonged; however, L S1 H- reflex falls within normal limits and is less than 1.2ms difference (minimal difference to be statistically significant), so this may be normal variant as well. There is no evidence of a peripheral neuropathy or myopathy. Impression: 1) Deficits mobility/ ADLs 2) Deconditioning 3) Gait abnormality 4) Lumbar stenosis/ DDD/ DJD 5) Lumbar radiculopathy 6) hx R L5 laminectomy 7) hx HTN, lipidemia 8) hx GERD 9) s/p nephrectomy 10) hx adrenal tumor s/p resection, cortisol deficiency 11) BMI WNL 12) Up to date flu shot/ pneumovax Recommendations: 1) PT for stretching strengthening ROM and functional mobility 2) Falls, safety precautions 3) Cardiac precautions 4) Heat/ ice/ US/ TENS LB prn 5) Trial lumbar corset 6) She had TIP last month without improvement, recommend f/u with Pain Management to see if she is eligible for repeat 7) Repeat MRI thoracolumbar spine 8) Spine surgery f/u to evaluate for additional interventions 9) DVT ppx: on hep sc 10) Denies constipation on current bowel regimen 11) Skin protection: float heels, frequent turning 12) Continue plan per primary team/ Neurology 13) Discharge planning: to be determined once pain improved Thank you for this referral.
--- NOTE | 2019-07-20 14:47 | CON.GU ---
Consult Consult Specialty:: urology Referred by:: Sherwin Reason for Consultation:: uti - History of Present Illness Chief Complaint: uti History of Present Illness: Patient is a 63 year old female with history of uti. Patient had been placed on macrobid after a CMG performed on 07/13. The patient denied any symptoms of dysuria, fever, chills, gross hematuria, frequency, or urgency. Patient presented with symptoms of exhaustion. 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 Cardio/Vascular: Yes: HTN Gastrointestinal: Yes: GERD Renal/: Yes: Renal Inusuff ...: No Musculoskeletal: Yes: Osteoarthritis - Past Surgical History Past Surgical History: Yes: Laminectomy, Nephrectomy - Alcohol/Substance Use Hx Alcohol Use: No - Smoking History Smoking history: Never smoked Have you smoked in the past 12 months: No - Social History Usual Living Arrangement: With Spouse (in house without steps to enter, and 12- 13 inside to bedroom/ bathroom) ADL: Independent (independent in ADLs without AD) History of Recent Travel: No Home Medications - Allergies Allergies/Adverse Reactions: Allergies Allergy/AdvReac Type Severity Reaction Status Date / Time No Known Allergies Allergy Verified 07/19/19 10:00 - Home Medications Home Medications: Ambulatory Orders Amlodipine Besylate [Norvasc -] 10 mg PO DAILY 03/02/14 Atorvastatin Ca [Lipitor] 40 mg PO HS 03/02/14 Metoprolol Succinate [Toprol Xl] 50 mg PO DAILY 07/20/15 Hydrocodone/Acetaminophen [Hydrocodone-Acetamin 5-325 mg] 1 each PO Q6H #20 tablet MDD 4 02/25/19 Acetaminophen [Tylenol .Regular Strength -] 650 mg PO Q6H PRN tablet 04/16/19 Atorvastatin Ca [Lipitor] 40 mg PO HS tablet 04/16/19 Cyclobenzaprine HCl [Flexeril -] 10 mg PO Q8H PRN #90 tablet 04/16/19 Docusate Sodium [Colace -] 300 mg PO HS #30 capsule 04/16/19 Enalapril Maleate [Vasotec -] 20 mg PO DAILY tablet 04/16/19 Lidocaine 5% Patch [Lidoderm -] 1 patch TP DAILY #30 patch 04/16/19 Potassium Chloride [K-Dur -] 40 meq PO BID #60 tablet.er 04/16/19 Sertraline HCl [Zoloft -] 100 mg PO DAILY tablet 04/16/19 oxyCODONE HCL [Roxicodone -] 5 mg PO Q6H PRN tablet MDD 4 04/16/19 Spironolactone [Aldactone -] 150 mg PO BID 07/19/19 Physical Exam- Vital Signs: Vital Signs Temperature 97.7 F 07/20/19 05:00 Pulse Rate 65 07/20/19 05:00 Respiratory Rate 18 07/20/19 05:00 Blood Pressure 144/87 07/20/19 05:00 O2 Sat by Pulse Oximetry (%) 95 07/19/19 21:00 Constitutional: Yes: Well Nourished, No Distress, Calm Eyes: Yes: WNL, Conjunctiva Clear, EOM Intact HENT: Yes: WNL, Atraumatic, Normocephalic Neck: Yes: WNL, Supple, Trachea Midline Cardiovascular: Yes: Regular Rate and Rhythm Respiratory: Yes: Regular Gastrointestinal: Yes: WNL, Normal Bowel Sounds, Soft Renal/: Yes: WNL Kidneys: Yes: WNL Pelvis: Yes: WNL External Genitalia: Yes: WNL Labs: CBC, BMP 07/20/19 06:40 07/20/19 06:00 Assessment/Plan impression uti plan continue current antibiotics
--- NOTE | 2019-07-20 18:05 | CONSULT ---
Consult Consult Specialty:: Nephrology Reason for Consultation:: hyperaldo - History of Present Illness Chief Complaint: fatigue History of Present Illness: Pt is a 63 year old female with pmhx of htn, hld, partial nephrectomy, adrenal nodules, hyperoldo, and chronic back pain who presents with generalized fatigue. I was called to evaluate her for hyperaldo. She is on aldactone that was recently increased to 150 mg bid. She is off of the potassium supplements. She feels a little better today. She is also being treated for a UTI. 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 Cardio/Vascular: Yes: HTN Gastrointestinal: Yes: GERD Renal/: Yes: Renal Inusuff ...: No Musculoskeletal: Yes: Osteoarthritis - Past Surgical History Past Surgical History: Yes: Laminectomy, Nephrectomy - Alcohol/Substance Use Hx Alcohol Use: No - Smoking History Smoking history: Never smoked Have you smoked in the past 12 months: No - Social History Usual Living Arrangement: With Spouse (in house without steps to enter, and 12- 13 inside to bedroom/ bathroom) ADL: Independent (independent in ADLs without AD) History of Recent Travel: No Home Medications - Allergies Allergies/Adverse Reactions: Allergies Allergy/AdvReac Type Severity Reaction Status Date / Time No Known Allergies Allergy Verified 07/19/19 10:00 - Home Medications Home Medications: Ambulatory Orders Amlodipine Besylate [Norvasc -] 10 mg PO DAILY 03/02/14 Atorvastatin Ca [Lipitor] 40 mg PO HS 03/02/14 Metoprolol Succinate [Toprol Xl] 50 mg PO DAILY 07/20/15 Hydrocodone/Acetaminophen [Hydrocodone-Acetamin 5-325 mg] 1 each PO Q6H #20 tablet MDD 4 02/25/19 Acetaminophen [Tylenol .Regular Strength -] 650 mg PO Q6H PRN tablet 04/16/19 Atorvastatin Ca [Lipitor] 40 mg PO HS tablet 04/16/19 Cyclobenzaprine HCl [Flexeril -] 10 mg PO Q8H PRN #90 tablet 04/16/19 Docusate Sodium [Colace -] 300 mg PO HS #30 capsule 04/16/19 Enalapril Maleate [Vasotec -] 20 mg PO DAILY tablet 04/16/19 Lidocaine 5% Patch [Lidoderm -] 1 patch TP DAILY #30 patch 04/16/19 Potassium Chloride [K-Dur -] 40 meq PO BID #60 tablet.er 04/16/19 Sertraline HCl [Zoloft -] 100 mg PO DAILY tablet 04/16/19 oxyCODONE HCL [Roxicodone -] 5 mg PO Q6H PRN tablet MDD 4 04/16/19 Spironolactone [Aldactone -] 150 mg PO BID 07/19/19 Family Medical History Family History: Denies Review of Systems - Review of Systems Constitutional: reports: Malaise Eyes: reports: No Symptoms HENT: reports: No Symptoms Neck: reports: No Symptoms Cardiovascular: reports: No Symptoms Respiratory: reports: No Symptoms Gastrointestinal: reports: No Symptoms Genitourinary: reports: No Symptoms Musculoskeletal: reports: Back Pain Integumentary: reports: No Symptoms Neurological: reports: No Symptoms Endocrine: reports: No Symptoms Hematology/Lymphatic: reports: No Symptoms Psychiatric: reports: No Symptoms Physical Exam Vital Signs: Vital Signs Temperature 97.9 F 07/20/19 17:37 Pulse Rate 78 07/20/19 17:37 Respiratory Rate 18 07/20/19 17:37 Blood Pressure 154/93 07/20/19 17:37 O2 Sat by Pulse Oximetry (%) 95 07/19/19 21:00 Constitutional: Yes: Calm Eyes: Yes: Conjunctiva Clear HENT: Yes: Atraumatic Neck: Yes: Supple Cardiovascular: Yes: S1, S2 Respiratory: Yes: CTA Bilaterally Gastrointestinal: Yes: Soft Renal/: Yes: WNL Musculoskeletal: Yes: Back Pain Edema: No Neurological: Yes: Oriented Psychiatric: Yes: Oriented Labs: CBC, BMP 07/20/19 06:40 07/20/19 06:00 Laboratory Tests 04/14/19 06:30 Aldosterone Pending Imaging - Results Ultrasound: Report Reviewed Assessment/Plan Current Medications Generic Name Dose Route Start Last Admin Trade Name Freq PRN Reason Stop Dose Admin Acetaminophen 650 mg 07/19/19 12:54 07/19/19 21:29 Tylenol - PO 650 mg Q6H PRN Administration PAIN OR FEVER Amlodipine Besylate 5 mg 07/20/19 10:00 07/20/19 10:52 Norvasc - PO 5 mg DAILY JÚNIOR Administration Atorvastatin Calcium 40 mg 07/19/19 22:00 07/19/19 21:21 Lipitor - PO 40 mg HS JÚNIOR Administration Enalapril Maleate 20 mg 07/20/19 10:00 07/20/19 10:51 Vasotec - PO 20 mg DAILY JÚNIOR Administration Heparin Sodium (Porcine) 5,000 unit 07/19/19 22:00 07/20/19 10:51 Heparin - SQ 5,000 unit BID JÚNIOR Administration Metoprolol Succinate 50 mg 07/20/19 10:00 07/20/19 10:52 Toprol Xl - PO 50 mg DAILY JÚNIOR Administration Sertraline HCl 100 mg 07/20/19 10:00 07/20/19 10:52 Zoloft - PO 100 mg DAILY JÚNIOR Administration Spironolactone 150 mg 07/19/19 22:00 07/20/19 10:51 Aldactone - PO 150 mg BID JÚNIOR Administration Impression 1. hx Hypokalemia 2. hx or partial nephrectomy 3. htn 4. back pain 5. uti 6. ckd 7. hyperaldosteronism Plan - cont aldactone - monitor lytes - monitor bp - urology input appreciated - pt did not follow in office
[2019-07-20] MEDS: ATORVASTATIN CA 40 MG TABLET (FP) PO SCH (21:18)
[2019-07-20] MEDS ORDERED: DICLOFENAC SODIUM 25 MG TABLET.DR PO SCH (22:00)
--- NOTE | 2019-07-21 00:58 | CONSULT ---
Consult Consult Specialty:: Endocrine Referred by:: Giovanni TRAYLOR Reason for Consultation:: Adrenal masses hypokalemia - History of Present Illness Chief Complaint: weakness tired and salt craving History of Present Illness: 63 year old female with pmhx of bilateral adrenal nodules,htn, hld, partial nephrectomy, hyperoldosteronism, and chronic back pain who presents with generalized fatigue. 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 Cardio/Vascular: Yes: HTN Gastrointestinal: Yes: GERD Renal/: Yes: Renal Inusuff ...: No Musculoskeletal: Yes: Osteoarthritis - Past Surgical History Past Surgical History: Yes: Laminectomy, Nephrectomy - Alcohol/Substance Use Hx Alcohol Use: No - Smoking History Smoking history: Never smoked Have you smoked in the past 12 months: No - Social History Usual Living Arrangement: With Spouse (in house without steps to enter, and 12- 13 inside to bedroom/ bathroom) ADL: Independent (indepemdent in ADLs without AD) History of Recent Travel: No Home Medications - Allergies Allergies/Adverse Reactions: Allergies Allergy/AdvReac Type Severity Reaction Status Date / Time No Known Allergies Allergy Verified 07/19/19 10:00 - Home Medications Home Medications: Ambulatory Orders Amlodipine Besylate [Norvasc -] 10 mg PO DAILY 03/02/14 Atorvastatin Ca [Lipitor] 40 mg PO HS 03/02/14 Metoprolol Succinate [Toprol Xl] 50 mg PO DAILY 07/20/15 Hydrocodone/Acetaminophen [Hydrocodone-Acetamin 5-325 mg] 1 each PO Q6H #20 tablet MDD 4 02/25/19 Acetaminophen [Tylenol .Regular Strength -] 650 mg PO Q6H PRN tablet 04/16/19 Atorvastatin Ca [Lipitor] 40 mg PO HS tablet 04/16/19 Cyclobenzaprine HCl [Flexeril -] 10 mg PO Q8H PRN #90 tablet 04/16/19 Docusate Sodium [Colace -] 300 mg PO HS #30 capsule 04/16/19 Enalapril Maleate [Vasotec -] 20 mg PO DAILY tablet 04/16/19 Lidocaine 5% Patch [Lidoderm -] 1 patch TP DAILY #30 patch 04/16/19 Potassium Chloride [K-Dur -] 40 meq PO BID #60 tablet.er 04/16/19 Sertraline HCl [Zoloft -] 100 mg PO DAILY tablet 04/16/19 oxyCODONE HCL [Roxicodone -] 5 mg PO Q6H PRN tablet MDD 4 04/16/19 Spironolactone [Aldactone -] 150 mg PO BID 07/19/19 Review of Systems - Review of Systems Constitutional: reports: Lethargy, Weakness Eyes: reports: No Symptoms HENT: reports: No Symptoms Neck: reports: No Symptoms Cardiovascular: reports: Shortness of Breath Respiratory: reports: Exercise Intolerance, SOB on Exertion Gastrointestinal: reports: Bloating, Nausea Genitourinary: reports: No Symptoms Breasts: reports: No Symptoms Reported Musculoskeletal: reports: Joint Swelling, Muscle Pain, Muscle Cramps, Muscle Weakness Integumentary: reports: Pruritis, Rash Neurological: reports: Numbness, Unsteady Gait, Weakness Physical Exam Vital Signs: Vital Signs Temperature 97.9 F 07/20/19 17:37 Pulse Rate 78 07/20/19 17:37 Respiratory Rate 18 07/20/19 17:37 Blood Pressure 154/93 07/20/19 17:37 O2 Sat by Pulse Oximetry (%) 95 07/19/19 21:00 Constitutional: Yes: Calm Eyes: Yes: EOM Intact HENT: Yes: Normocephalic Neck: Yes: Trachea Midline Cardiovascular: Yes: Regular Rate and Rhythm Respiratory: Yes: CTA Bilaterally Gastrointestinal: Yes: Normal Bowel Sounds ...Rectal Exam: Yes: Deferred Renal/: Yes: WNL Musculoskeletal: Yes: Muscle Pain, Muscle Weakness Extremities: Yes: Cool, Delayed Capillary Refill Edema: Yes Edema: LLE: Trace, RLE: Trace Integumentary: Yes: Venous Stasis Changes Neurological: Yes: Alert, Oriented Labs: CBC, BMP 07/20/19 06:40 07/20/19 06:00 Problem List - Problems (1) HTN (hypertension) Problems reviewed: Yes Code(s): I10 - ESSENTIAL (PRIMARY) HYPERTENSION (2) Malaise and fatigue Problems reviewed: Yes Code(s): R53.81 - OTHER MALAISE; R53.83 - OTHER FATIGUE (3) Urinary tract infection Problems reviewed: Yes Code(s): N39.0 - URINARY TRACT INFECTION, SITE NOT SPECIFIED Qualifiers: Urinary tract infection type: site unspecified Hematuria presence: without hematuria Qualified Code(s): N39.0 - Urinary tract infection, site not specified (4) Back pain Problems reviewed: Yes Code(s): M54.9 - DORSALGIA, UNSPECIFIED Qualifiers: Back pain location: thoracic back pain (5) Cortisol deficiency Problems reviewed: Yes Code(s): E27.49 - OTHER ADRENOCORTICAL INSUFFICIENCY (6) Hyperaldosteronism, unspecified Code(s): E26.9 - HYPERALDOSTERONISM, UNSPECIFIED (7) Hypokalemia Code(s): E87.6 - HYPOKALEMIA (8) Lumbago Code(s): M54.5 - LOW BACK PAIN Assessment/Plan Current Active Problems HTN (hypertension) (Acute) Malaise and fatigue (Acute) Urinary tract infection (Acute) adrenal deficiency / adrenal mass hypokalemia hyperaldosteronism conn syndrome sp adrenal resection Abnormal Lab Results 07/20/19 07/20/19 06:00 06:40 RBC 5.28 H RDW 16.6 H Chloride 110 H Anion Gap 6 L BUN 20.4 H Albumin 3.0 L Laboratory Results - last 24 hr 07/19/19 07/20/19 07/20/19 19:20 06:00 06:17 WBC RBC Hgb Hct MCV MCH MCHC RDW Plt Count MPV Absolute Neuts (auto) Neutrophils % Lymphocytes % Monocytes % Eosinophils % Basophils % Nucleated RBC % ESR Sodium 144 Potassium 4.1 Chloride 110 H Carbon Dioxide 28 Anion Gap 6 L BUN 20.4 H Creatinine 0.8 Est GFR (CKD-EPI)AfAm 89.67 Est GFR (CKD-EPI)NonAf 77.37 POC Glucometer 90 Random Glucose 85 Calcium 9.3 Phosphorus 3.8 Magnesium 2.4 Total Bilirubin 0.4 AST 19 ALT 36 Alkaline Phosphatase 113 Total Protein 6.7 Albumin 3.0 L TSH 2.34 Thyroxine (T4) 8.5 Cortisol 60 Minute Cancelled 07/20/19 07/20/19 07/20/19 06:40 06:40 12:15 WBC 6.9 RBC 5.28 H Hgb 13.9 Hct 42.2 MCV 80.0 MCH 26.3 MCHC 32.9 RDW 16.6 H Plt Count 384 MPV 8.0 Absolute Neuts (auto) 4.1 Neutrophils % 60.0 Lymphocytes % 26.2 D Monocytes % 10.0 Eosinophils % 2.6 Basophils % 1.2 Nucleated RBC % 0 ESR 26 Sodium Potassium Chloride Carbon Dioxide Anion Gap BUN Creatinine Est GFR (CKD-EPI)AfAm Est GFR (CKD-EPI)NonAf POC Glucometer 135 Random Glucose Calcium Phosphorus Magnesium Total Bilirubin AST ALT Alkaline Phosphatase Total Protein Albumin TSH Thyroxine (T4) Cortisol 60 Minute 07/20/19 07/20/19 17:59 21:15 WBC RBC Hgb Hct MCV MCH MCHC RDW Plt Count MPV Absolute Neuts (auto) Neutrophils % Lymphocytes % Monocytes % Eosinophils % Basophils % Nucleated RBC % ESR Sodium Potassium Chloride Carbon Dioxide Anion Gap BUN Creatinine Est GFR (CKD-EPI)AfAm Est GFR (CKD-EPI)NonAf POC Glucometer 90 116 Random Glucose Calcium Phosphorus Magnesium Total Bilirubin AST ALT Alkaline Phosphatase Total Protein Albumin TSH Thyroxine (T4) Cortisol 60 Minute plan: cosyntropin test for adrenal reserve continue aldactone 150mg bid as tolerated ceferino inhibitor
[2019-07-21] MEDS ORDERED: COSYNTROPIN 0.25 MG VIAL IVPUSH ONE (06:00)
--- NOTE | 2019-07-21 07:11 | PN ---
Progress Note, Physician Chief Complaint: asleep comfortable - Current Medication List Current Medications: Active Medications Acetaminophen (Tylenol -) 650 mg PO Q6H PRN PRN Reason: PAIN OR FEVER Last Admin: 07/19/19 21:29 Dose: 650 mg Amlodipine Besylate (Norvasc -) 5 mg PO DAILY [facility] Last Admin: 07/20/19 10:52 Dose: 5 mg Atorvastatin Calcium (Lipitor -) 40 mg PO HS [facility] Last Admin: 07/20/19 21:18 Dose: 40 mg Diclofenac Sodium (Voltaren -) 50 mg PO BID [facility] Last Admin: 07/20/19 21:17 Dose: 50 mg Enalapril Maleate (Vasotec -) 20 mg PO DAILY [facility] Last Admin: 07/20/19 10:51 Dose: 20 mg Gabapentin (Neurontin -) 300 mg PO DAILY [facility] Heparin Sodium (Porcine) (Heparin -) 5,000 unit SQ BID [facility] Last Admin: 07/20/19 21:16 Dose: Not Given Lidocaine (Lidoderm Patch -) 1 patch TP DAILY [facility] Metoprolol Succinate (Toprol Xl -) 50 mg PO DAILY [facility] Last Admin: 07/20/19 10:52 Dose: 50 mg Miscellaneous (Lidoderm Patch Removal) 1 each MC DAILY@2200 [facility] Sertraline HCl (Zoloft -) 100 mg PO DAILY [facility] Last Admin: 07/20/19 10:52 Dose: 100 mg Spironolactone (Aldactone -) 150 mg PO BID [facility] Last Admin: 07/20/19 21:17 Dose: 150 mg - Objective Vital Signs: Vital Signs Temperature 98.3 F 07/21/19 06:00 Pulse Rate 71 07/21/19 06:00 Respiratory Rate 18 07/21/19 06:00 Blood Pressure 152/92 07/21/19 06:00 O2 Sat by Pulse Oximetry (%) 95 07/19/19 21:00 Cardiovascular: Yes: Regular Rate and Rhythm Respiratory: Yes: WNL Gastrointestinal: Yes: WNL Genitourinary: Yes: WNL Musculoskeletal: Yes: Back Pain Neurological: Yes: Weakness Labs: CBC, BMP 07/20/19 06:40 07/20/19 06:00 Problem List - Problems (1) Unsteady gait Code(s): R26.81 - UNSTEADINESS ON FEET (2) HTN (hypertension) Code(s): I10 - ESSENTIAL (PRIMARY) HYPERTENSION (3) Malaise and fatigue Code(s): R53.81 - OTHER MALAISE; R53.83 - OTHER FATIGUE (4) Urinary tract infection Code(s): N39.0 - URINARY TRACT INFECTION, SITE NOT SPECIFIED Qualifiers: Urinary tract infection type: site unspecified Hematuria presence: without hematuria Qualified Code(s): N39.0 - Urinary tract infection, site not specified (5) Back pain Code(s): M54.9 - DORSALGIA, UNSPECIFIED Qualifiers: Back pain location: thoracic back pain (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 AWAITING CORTISOL/MSPIKE/HORMONE LEVELS. PT/REHAB NOTE APPRECIATED PATIENT WILL NEED SNF AT [facility] FOR CORE STRENGHTENING/LEG WEAKNESS/PAIN EMDICINE. UTI ON IV ABX ENDOCRINE CONSULT DVT PROPHYLAXIS
[2019-07-21 08:42] LABS: HEMATOCRIT 40.2 % (32.4-45.2); HEMOGLOBIN 13.4 GM/dL (10.7-15.3); MCH 26.4 pg (25.7-33.7); MCHC 33.4 g/dl (32.0-36.0); MEAN CELL VOLUME 79.1 fl (80-96); MEAN PLT VOLUME 7.8 fl (7.5-11.1); PLATELET COUNT 376 K/MM3 (134-434); RBC 5.09 M/mm3 (3.60-5.2); RDW 16.5 % (11.6-15.6)
[2019-07-21] MEDS ORDERED: PT OWN MED DRAWER 7, Y5N ONE (09:00)
[2019-07-21 09:14] LABS: ALBUMIN 3.2 g/dl (3.4-5.0); BILIRUBIN,TOTAL 0.4 mg/dL (0.2-1); BLOOD UREA NITROGEN 23.8 mg/dL (7-18); CALCIUM 9.3 mg/dL (8.5-10.1); CREATININE 0.9 mg/dL (0.55-1.3); POTASSIUM 3.5 mmol/L (3.5-5.1); TOT PROT 6.5 g/dl (6.4-8.2)
[2019-07-21] MEDS: SPIRONOLACTONE 25 MG TABLET (FP) PO SCH (09:29)
[2019-07-21] MEDS: ENALAPRIL MALEATE 10 MG TABLET (FP) PO SCH (09:29)
[2019-07-21] MEDS: HEPARIN NA (PORCINE) 5,000 UNITS/ML 1ML VIAL SQ SCH (09:30)
[2019-07-21] MEDS: amLODIPine BESYLATE 5 MG TABLET (FP) PO SCH (09:32)
[2019-07-21] MEDS: SERTRALINE HCL 50 MG TABLET (FP) PO SCH (09:32)
[2019-07-21] MEDS ORDERED: GABAPENTIN 300 MG CAPSULE (FP) PO SCH (10:00)
[2019-07-21] MEDS ORDERED: LIDOCAINE 5% TOPICAL PATCH TP SCH (10:00)
--- NOTE | 2019-07-21 12:24 | CONSULT ---
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 HPI. The patient reports she has a 6 month history of weakness of the right leg. She is very limited in her walking, she has to hold from the hubbard and walks only from room to room. She indicates she has mild tenderness in both shoulders and mild diffuse aches and pains, however she denies having pain in hips or legs. Laboratory work-up revealed a normal CBC, ESR 26, glucose 91, creatinine 0.9 and liver function tests were normal. CK was 52 and urinalysis had LE 2+ and no blood or protein. EMG (07/19/19) reported with L4 radiculopathy, chronic and active. Left common peroneal neuropathy verus L4-5 radiculopathy. There was no peripheral neuropathy or myopathy. MRI of the lumbar spine (12/23/18) reported with central spinal stenosis at L3-4 and L4-5, neural foraminal stenosis without compression of L3 or L4. S/P laminectomy in L5-S1. 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 Cardio/Vascular: Yes: HTN Gastrointestinal: Yes: GERD Renal/: Yes: Renal Inusuff ...: No Musculoskeletal: Yes: Osteoarthritis - Past Surgical History Past Surgical History: Yes: Laminectomy, Nephrectomy - Alcohol/Substance Use Hx Alcohol Use: No - Smoking History Smoking history: Never smoked Have you smoked in the past 12 months: No - Social History Usual Living Arrangement: With Spouse (in house without steps to enter, and 12- 13 inside to bedroom/ bathroom) ADL: Independent (indepemdent in ADLs without AD) History of Recent Travel: No Home Medications - Allergies Allergies/Adverse Reactions: Allergies Allergy/AdvReac Type Severity Reaction Status Date / Time No Known Allergies Allergy Verified 07/19/19 10:00 - Home Medications Home Medications: Ambulatory Orders Amlodipine Besylate [Norvasc -] 10 mg PO DAILY 03/02/14 Atorvastatin Ca [Lipitor] 40 mg PO HS 03/02/14 Metoprolol Succinate [Toprol Xl] 50 mg PO DAILY 07/20/15 Hydrocodone/Acetaminophen [Hydrocodone-Acetamin 5-325 mg] 1 each PO Q6H #20 tablet MDD 4 02/25/19 Acetaminophen [Tylenol .Regular Strength -] 650 mg PO Q6H PRN tablet 04/16/19 Atorvastatin Ca [Lipitor] 40 mg PO HS tablet 04/16/19 Cyclobenzaprine HCl [Flexeril -] 10 mg PO Q8H PRN #90 tablet 04/16/19 Docusate Sodium [Colace -] 300 mg PO HS #30 capsule 04/16/19 Enalapril Maleate [Vasotec -] 20 mg PO DAILY tablet 04/16/19 Lidocaine 5% Patch [Lidoderm -] 1 patch TP DAILY #30 patch 04/16/19 Potassium Chloride [K-Dur -] 40 meq PO BID #60 tablet.er 04/16/19 Sertraline HCl [Zoloft -] 100 mg PO DAILY tablet 04/16/19 oxyCODONE HCL [Roxicodone -] 5 mg PO Q6H PRN tablet MDD 4 04/16/19 Spironolactone [Aldactone -] 150 mg PO BID 07/19/19 Review of Systems - Review of Systems Constitutional: reports: Malaise Eyes: reports: No Symptoms HENT: reports: No Symptoms Neck: reports: No Symptoms Cardiovascular: reports: No Symptoms Respiratory: reports: No Symptoms Gastrointestinal: reports: No Symptoms Musculoskeletal: reports: Other (See HPI) Physical Exam Vital Signs: Vital Signs Temperature 98.3 F 07/21/19 06:00 Pulse Rate 71 07/21/19 06:00 Respiratory Rate 18 07/21/19 06:00 Blood Pressure 152/92 07/21/19 06:00 O2 Sat by Pulse Oximetry (%) 95 07/19/19 21:00 Constitutional: Yes: Mild Distress Eyes: Yes: WNL HENT: Yes: WNL Neck: Yes: WNL Cardiovascular: Yes: WNL Respiratory: Yes: WNL Musculoskeletal: Yes: Other (No active joints. Weakness inthe right l) Neurological: No: Cran Nerves II-XII Intact Labs: CBC, BMP 07/21/19 08:05 07/21/19 08:05 Laboratory Tests 07/19/19 07/20/19 07/21/19 10:25 06:40 08:05 ESR 26 Random Glucose 91 Calcium 9.3 Total Bilirubin 0.4 AST 16 ALT 36 Alkaline Phosphatase 111 Creatine Kinase 52 Total Protein 6.5 Albumin 3.2 L Urine Color Yellow Urine Appearance Cloudy Urine pH 6.5 Ur Specific [place] 1.014 Urine Protein Trace Urine Glucose (UA) Negative Urine Ketones Negative Urine Blood Negative Urine Nitrite Positive H Urine Bilirubin Negative Urine Urobilinogen 0.2 Ur Leukocyte Esterase 2+ H Urine WBC (Auto) 82 Urine RBC (Auto) 3 Urine Casts (Auto) 20 U Epithel Cells (Auto) 4.3 Urine Bacteria (Auto) 2002.1 Problem List - Problems (1) Lumbar radicular pain Assessment/Plan: Weakness in the right leg is related to radiculopathy as per data of MRI of the lumbar spine and EMG. The patient does not have myopathy. Plan: As per suggestion by Physiatry, I suggest physical therapy and if there is no improvement, consider surgery. Code(s): M54.16 - RADICULOPATHY, LUMBAR REGION
--- NOTE | 2019-07-21 14:32 | DS ---
Physical Examination Vital Signs: Vital Signs Temperature 98.3 F 07/21/19 06:00 Pulse Rate 71 07/21/19 06:00 Respiratory Rate 18 07/21/19 06:00 Blood Pressure 152/92 07/21/19 06:00 O2 Sat by Pulse Oximetry (%) 95 07/19/19 21:00 Findings/Remarks: see progress note patient refusing snf wants to go home Labs: CBC, BMP 07/21/19 08:05 07/21/19 08:05 Discharge Summary Problems reviewed: Yes Reason For Visit: URINARY TRACT INFECTION,MALAISE AND FATIGUE Current Active Problems HTN (hypertension) (Acute) Malaise and fatigue (Acute) Unsteady gait (Acute) Urinary tract infection (Acute) Procedures: Principal: labs/cx Hospital Course: admitted back pain uti, radiculopathy is greater source of pain patient declined snf fpr pt rehab dc home f/u outpatient Plan of Treatment: see neurosurgery for possible surgery to eleviate pain Condition: Stable - Instructions Diet, Activity, Other Instructions: pain control, has oxycodone already i am not sending any pills today can f/u with neurosurgery and pt Referrals: Vamshi Courtney MD [Primary Care Provider] - Disposition: HOME - Home Medications Comprehensive Discharge Medication List: Ambulatory Orders Amlodipine Besylate [Norvasc -] 10 mg PO DAILY 03/02/14 Atorvastatin Ca [Lipitor] 40 mg PO HS 03/02/14 Metoprolol Succinate [Toprol Xl] 50 mg PO DAILY 07/20/15 Hydrocodone/Acetaminophen [Hydrocodone-Acetamin 5-325 mg] 1 each PO Q6H #20 tablet MDD 4 02/25/19 Acetaminophen [Tylenol .Regular Strength -] 650 mg PO Q6H PRN tablet 04/16/19 Atorvastatin Ca [Lipitor] 40 mg PO HS tablet 04/16/19 Cyclobenzaprine HCl [Flexeril -] 10 mg PO Q8H PRN #90 tablet 04/16/19 Docusate Sodium [Colace -] 300 mg PO HS #30 capsule 04/16/19 Enalapril Maleate [Vasotec -] 20 mg PO DAILY tablet 04/16/19 Lidocaine 5% Patch [Lidoderm -] 1 patch TP DAILY #30 patch 04/16/19 Potassium Chloride [K-Dur -] 40 meq PO BID #60 tablet.er 04/16/19 Sertraline HCl [Zoloft -] 100 mg PO DAILY tablet 04/16/19 Spironolactone [Aldactone -] 150 mg PO BID 07/19/19 Diclofenac Sodium [Voltaren -] 50 mg PO BID #60 tablet. 07/21/19 Gabapentin [Neurontin -] 300 mg PO DAILY #30 capsule 07/21/19 Lidocaine 5% Patch [Lidoderm -] 1 patch TP DAILY #30 patch 07/21/19
[2019-07-21 15:03] VITALS: BP 146/82; PULSE 72; TEMP 98.2
--- NOTE | 2019-07-21 15:44 | PN ---
Progress Note, Physician History of Present Illness: EVENTS NOTED Chart is reviewed Pain is better Seen by rheumatology Blood work for myopathy noted - Current Medication List Current Medications: Active Medications Acetaminophen (Tylenol -) 650 mg PO Q6H PRN PRN Reason: PAIN OR FEVER Last Admin: 07/19/19 21:29 Dose: 650 mg Amlodipine Besylate (Norvasc -) 5 mg PO DAILY [facility] Last Admin: 07/21/19 09:32 Dose: 5 mg Atorvastatin Calcium (Lipitor -) 40 mg PO HS [facility] Last Admin: 07/20/19 21:18 Dose: 40 mg Diclofenac Sodium (Voltaren -) 50 mg PO BID [facility] Last Admin: 07/20/19 21:17 Dose: 50 mg Enalapril Maleate (Vasotec -) 20 mg PO DAILY [facility] Last Admin: 07/21/19 09:29 Dose: 20 mg Gabapentin (Neurontin -) 300 mg PO DAILY [facility] Last Admin: 07/21/19 09:32 Dose: 300 mg Heparin Sodium (Porcine) (Heparin -) 5,000 unit SQ BID [facility] Last Admin: 07/21/19 09:30 Dose: 5,000 unit Lidocaine (Lidoderm Patch -) 1 patch TP DAILY [facility] Last Admin: 07/21/19 09:31 Dose: 1 patch Metoprolol Succinate (Toprol Xl -) 50 mg PO DAILY [facility] Last Admin: 07/21/19 09:32 Dose: 50 mg Miscellaneous (Lidoderm Patch Removal) 1 each MC DAILY@2200 [facility] Sertraline HCl (Zoloft -) 100 mg PO DAILY [facility] Last Admin: 07/21/19 09:32 Dose: 100 mg Spironolactone (Aldactone -) 150 mg PO BID [facility] Last Admin: 07/21/19 09:29 Dose: 150 mg - Objective Vital Signs: Vital Signs Temperature 98.2 F 07/21/19 14:00 Pulse Rate 72 07/21/19 14:00 Respiratory Rate 18 07/21/19 14:00 Blood Pressure 146/82 07/21/19 14:00 O2 Sat by Pulse Oximetry (%) 95 07/21/19 09:00 Constitutional: Yes: Well Nourished Eyes: Yes: WNL Neurological: Yes: Alert, Oriented, Babinski negative ...Motor Strength: WNL Labs: CBC, BMP 07/21/19 08:07/21/19 08:05 Problem List - Problems (1) Lumbar radicular pain Assessment/Plan: 1. Physical therapy. 2. Trigger point injection. 3. Weight loss. 4. Continue statin the same Code(s): M54.16 - RADICULOPATHY, LUMBAR REGION
[2019-07-21] MEDS ORDERED: LIDOCAINE PATCH REMOVAL MC SCH (22:00)
== END 2019-07-21 15:38 | disposition home or self-care (01) | DRG 552 ==
LOC: JER 09:46 → JERBED 11:46 → J8W 13:10
PROVIDERS: ADMIT Family Medicine; ATTEND Family Medicine
DX: M54.16 Radiculopathy, lumbar region (principal); E27.49 Other adrenocortical insufficiency; N39.0 Urinary tract infection, site not specified; E78.5 Hyperlipidemia, unspecified; E87.6 Hypokalemia; M54.5 Low back pain; M48.061 Spinal stenosis, lumbar region without neurogenic claudication; K21.9 Gastro-esophageal reflux disease without esophagitis; I12.9 Hypertensive chronic kidney disease with stage 1 through stage 4 chronic kidney disease, or unspecified chronic kidney disease; N18.9 Chronic kidney disease, unspecified; E26.9 Hyperaldosteronism, unspecified; R26.81 Unsteadiness on feet
CPT/HCPCS: 36415; 71045-TC-FY; 80053; 81003; 82024; 82085; 82533; 82550; 82962; 83735; 83874; 84100; 84155; 84165; 84436; 84443; 85025; 85027; 85651; 87086; 87804; 93005; 93010; 95860-TC; 97116-GP; 97161-GP; 99284-25; J0834; J1644; J7030

== ENCOUNTER 2019-08-31 07:36 | Day surgery (SDC) | payer OTHER, BC ==
[2019-08-13 15:03] VITALS: BMI 25.7
[2019-08-31] MEDS ORDERED: PROPOFOL 20 ML ONE ×2 (09:45)
[2019-08-31] MEDS ORDERED: MIDAZOLAM HCL 2 MG/2 ML SINGLE DOSE VIAL ONE (09:45)
--- NOTE | 2019-08-31 10:57 | OP ---
Operative Note - Note: Operative Date: 08/31/19 Pre-Operative Diagnosis: Left renal stone Operation: Left ESWL Findings: 10 mm mid pole Left renal stone- treated today Post-Operative Diagnosis: Same as Pre-op Surgeon: Amandeep Medrano Anesthesia: Fractional Estimated Blood Loss (mls): 0 Operative Report Dictated: Yes
[2019-08-31] MEDS ORDERED: ONDANSETRON 4 MG/2 ML VIAL IVPUSH PRN (11:30)
[2019-08-31] MEDS ORDERED: oxyCODONE HCL 5 MG TABLET PO PRN (11:30)
[2019-08-31] MEDS ORDERED: LACTATED RINGERS SOLUTION 1,000 ML IV SCH (11:30)
[2019-08-31 13:16] VITALS: TEMP 98.3
[2019-08-31 13:53] VITALS: BP 144/89; PULSE 75
--- NOTE | 2019-09-01 14:48 | OP ---
DATE OF OPERATION: 08/31/2019 PREOPERATIVE DIAGNOSIS: Left renal stone. POSTOPERATIVE DIAGNOSIS: Left renal stone. PROCEDURE: Left extracorporeal shock wave lithotripsy. ATTENDING: Saranya Harris MD ANESTHESIA: Fractional. The operation went as follows. Patient was brought in the operating room and placed in a supine position on the operating room table. Ultrasonography and fluoroscopy were performed. Two stones were noted, a 10-mm left midpole stone, as well as a 5-mm left lower pole stone. Because of the large 10-mm stone, it was decided to utilize this procedure for the larger stone. Anesthesia and preoperative antibiotics were administered, after which 3000 impulses at 18 joules of power were administered to the 10-mm stone with excellent fragmentation noted. The patient will require a followup extracorporeal shock wave lithotripsy for the residual 5-mm stone. No complications were noted. Disposition of the patient was to recovery room. SARANYA HARRIS M.D. [id number]
== END 2019-08-31 13:55 | disposition home or self-care (01) ==
LOC: JASU-SURG 07:36
PROVIDERS: ATTEND Urology
PROC: 0TF4XZZ Fragmentation in Left Kidney Pelvis, External Approach (ICD-10-PCS; principal; 2019-08-31 09:30)
DX: N20.0 Calculus of kidney (principal)
CPT/HCPCS: 94760

== ENCOUNTER 2022-01-15 04:16 | Day surgery (SDC) | payer OTHER, BC ==
[2021-11-29 09:15] VITALS: BMI 25.7
[2022-01-15 06:50] VITALS: TEMP 98.9
[2022-01-15] MEDS ORDERED: MIDAZOLAM HCL 2 MG/2 ML SINGLE DOSE VIAL ONE (08:15)
[2022-01-15] MEDS ORDERED: PROPOFOL 20 ML ONE (08:32)
[2022-01-15] MEDS ORDERED: LIDOCAINE HCL/PF 2% SDV 5ML VIAL ONE (08:32)
[2022-01-15] MEDS ORDERED: KETOROLAC TROMETHAMINE 30 MG/1 ML VIAL ONE (08:33)
[2022-01-15 10:21] VITALS: BP 138/82; PULSE 68
== END 2022-01-15 11:19 | disposition home or self-care (01) ==
LOC: JASU-SURG 04:16
PROVIDERS: ATTEND Urology
PROC: 0TF4XZZ Fragmentation in Left Kidney Pelvis, External Approach (ICD-10-PCS; principal; 2022-01-15 08:00)
DX: N20.0 Calculus of kidney (principal)

== ENCOUNTER 2022-02-26 03:57 | Day surgery (SDC) | payer OTHER, BC ==
[2022-02-22 11:40] VITALS: BMI 25.4
[2022-02-26 08:11] VITALS: RESP 18
[2022-02-26] MEDS ORDERED: MIDAZOLAM HCL 2 MG/2 ML SINGLE DOSE VIAL ONE (11:10)
[2022-02-26 13:21] VITALS: BP 116/77; PULSE 68; TEMP 98
== END 2022-02-26 13:10 | disposition home or self-care (01) ==
LOC: JASU-SURG 03:57
PROVIDERS: ATTEND Urology
PROC: 0TF4XZZ Fragmentation in Left Kidney Pelvis, External Approach (ICD-10-PCS; principal; 2022-02-26 10:30)
DX: N20.0 Calculus of kidney (principal)

== ENCOUNTER 2022-06-22 12:19 | Inpatient (IN) | payer OTHER, BC ==
[2022-06-22 14:19] LABS: BASO % 0.9 % (0-2.0); EOS % 1.9 % (0-4.5); HEMATOCRIT 41.4 % (32.4-45.2); HEMOGLOBIN 13.7 GM/dL (10.7-15.3); MCH 26.6 pg (25.7-33.7); MCHC 33.1 g/dl (32.0-36.0); MEAN CELL VOLUME 80.5 fl (80-96); MEAN PLT VOLUME 7.7 fl (7.5-11.1); MONO % 9.6 % (3.8-10.2); NEUT % 65.6 % (42.8-82.8); PLATELET COUNT 382 10^3/uL (134-434); RBC 5.14 M/mm3 (3.60-5.2); WHITE BLOOD COUNT 9.5 K/mm3 (4.0-10.0)
[2022-06-22 14:20] LABS: EPI CELLS 29 /uL (0-25.1); HYALINE CASTS 5 /uL (0-3.1); URINE APPEARANCE CLOUDY; URINE BACTERIA >9,000 /uL (0-1359); URINE BILIRUBIN NEGATIVE (NEGATIVE); URINE COLOR YELLOW; URINE GLUCOSE (UA) NEGATIVE (NEGATIVE); URINE KETONE NEGATIVE (NEGATIVE); URINE LEUK ESTERASE 3+ (NEGATIVE); URINE NITRITE NEGATIVE (NEGATIVE); URINE PROTEIN 2+ (NEGATIVE); URINE RBC 15 /uL (0-23.9); URINE WBC 608 /uL (0-25.8)
[2022-06-22 14:40] LABS: BLOOD UREA NITROGEN 19.1 mg/dL (7-18)
[2022-06-22 14:41] LABS: MAGNESIUM 1.8 mg/dL (1.8-2.4)
[2022-06-22 14:44] LABS: CREATININE 0.8 mg/dL (0.55-1.3)
[2022-06-22 14:45] LABS: BILIRUBIN,TOTAL 0.6 mg/dL (0.2-1)
[2022-06-22] MEDS ORDERED: CEFTRIAXONE 1 GM in DEXTROSE 5%-WATER - 100 ML IVPB ONE (14:56)
[2022-06-22] MEDS ORDERED: CEFTRIAXONE 1 GM/50 ML BAG ONE (15:14)
[2022-06-22] MEDS ORDERED: KCL 10 MEQ IVPB 10 MEQ/100 ML INFUS.BAG IVPB ONE ×3 (16:02→18:51)
[2022-06-22] MEDS ORDERED: SPIRONOLACTONE 25 MG TABLET PO ONE (16:19)
[2022-06-22] MEDS: KCL 10 MEQ IVPB 10 MEQ/100 ML INFUS.BAG IVPB SCH ×3 (16:26→18:53)
[2022-06-22] MEDS ORDERED: SPIRONOLACTONE 25 MG TABLET ONE (16:27)
[2022-06-22] MEDS ORDERED: POTASSIUM CHLORIDE TABS 20 MEQ TABLET.ER (FP) PO ONE ×3 (16:44→23:00)
[2022-06-22] MEDS ORDERED: MAGNESIUM SULF 50% (8.12 MEQ/2 ML-1 GM VIAL) IVPB ONE (16:45)
[2022-06-22] MEDS ORDERED: MAGNESIUM SULFATE IN WATER 2 GM/50 ML IVPB IVPB ONE (17:20)
[2022-06-22] MEDS ORDERED: amLODIPine BESYLATE 10 MG TABLET (FP) ONE (18:50)
[2022-06-22] MEDS: amLODIPine BESYLATE 10 MG TABLET (FP) PO SCH (18:53)
[2022-06-22] MEDS ORDERED: MAGNESIUM 1GM/D5W - 1 GM/100 ML IVPB IVPB ONE (19:22)
[2022-06-22 21:15] LABS: CHLORIDE 105 mmol/L (98-107); SODIUM 146 mmol/L (136-145)
[2022-06-22 21:16] LABS: CALCIUM 8.4 mg/dL (8.5-10.1)
[2022-06-22 21:17] LABS: CO2 33 mmol/L (21-32); GLUCOSE,RANDOM 104 mg/dL (74-106)
[2022-06-22 21:20] LABS: CREATININE 0.8 mg/dL (0.55-1.3)
[2022-06-22 21:23] LABS: ANION GAP 8 MMOL/L (8-16)
[2022-06-22] MEDS: HEPARIN NA (PORCINE) 5,000 UNITS/ML 1ML VIAL SQ SCH (22:20)
[2022-06-22] MEDS: ENALAPRIL MALEATE 10 MG TABLET PO SCH (22:21)
[2022-06-22 23:46] VITALS: BMI 25.6
[2022-06-23] MEDS: ENALAPRIL MALEATE 10 MG TABLET PO SCH ×2 (09:03→21:47)
[2022-06-23] MEDS: amLODIPine BESYLATE 10 MG TABLET (FP) PO SCH (09:04)
[2022-06-23] MEDS: HEPARIN NA (PORCINE) 5,000 UNITS/ML 1ML VIAL SQ SCH ×2 (09:04→21:46)
[2022-06-23] MEDS: SERTRALINE HCL 50 MG TABLET (FP) PO SCH (09:07)
[2022-06-23 09:52] LABS: HEMATOCRIT 40.2 % (32.4-45.2); HEMOGLOBIN 13.4 GM/dL (10.7-15.3); MCH 26.9 pg (25.7-33.7); MCHC 33.3 g/dl (32.0-36.0); MEAN CELL VOLUME 80.8 fl (80-96); PLATELET COUNT 359 10^3/uL (134-434); RBC 4.98 M/mm3 (3.60-5.2); WHITE BLOOD COUNT 8.2 K/mm3 (4.0-10.0)
[2022-06-23] MEDS ORDERED: POTASSIUM CHLORIDE TABS 20 MEQ TABLET.ER (FP) PO SCH (10:00)
[2022-06-23] MEDS ORDERED: amLODIPine BESYLATE 10 MG TABLET (FP) PO SCH (10:00)
[2022-06-23] MEDS ORDERED: SPIRONOLACTONE 25 MG TABLET PO SCH (10:00)
[2022-06-23 10:07] LABS: CHLORIDE 105 mmol/L (98-107); SODIUM 146 mmol/L (136-145)
[2022-06-23 10:16] LABS: CALCIUM 9.1 mg/dL (8.5-10.1)
[2022-06-23 10:17] LABS: BLOOD UREA NITROGEN 18.8 mg/dL (7-18); CO2 31 mmol/L (21-32); GLUCOSE,RANDOM 140 mg/dL (74-106); MAGNESIUM 2.1 mg/dL (1.8-2.4)
[2022-06-23 10:18] LABS: SGOT/AST 15 U/L (15-37)
[2022-06-23 10:19] LABS: SGPT/ALT 29 U/L (13-61)
[2022-06-23] MEDS: POTASSIUM CITRATE/CITRIC ACID 2 MEQ/ML ML PO SCH (10:19)
[2022-06-23 10:20] LABS: ALK PHOS 117 U/L (45-117); BILIRUBIN,TOTAL 0.5 mg/dL (0.2-1); TOT PROT 6.5 g/dl (6.4-8.2)
[2022-06-23 10:21] LABS: CREATININE 0.8 mg/dL (0.55-1.3)
[2022-06-23 10:24] LABS: ANION GAP 10 MMOL/L (8-16)
[2022-06-23] MEDS: KCL 10 MEQ IVPB 10 MEQ/100 ML INFUS.BAG IVPB SCH ×3 (12:25→15:00)
[2022-06-23] MEDS ORDERED: POTASSIUM CHLORIDE TABS 20 MEQ TABLET.ER (FP) PO ONE (13:00)
[2022-06-23] MEDS: hydrALAZINE HCL 25 MG TABLET (FP) PO SCH (21:46)
[2022-06-23] MEDS: POTASSIUM CHLORIDE TABS 20 MEQ TABLET.ER (FP) PO SCH (21:46)
[2022-06-23] MEDS: SPIRONOLACTONE 25 MG TABLET PO SCH (21:47)
[2022-06-23] MEDS ORDERED: DEXAMETHASONE 0.5 MG TABLET PO ONE (23:45)
[2022-06-24] MEDS: POTASSIUM CHLORIDE TABS 20 MEQ TABLET.ER (FP) PO SCH (06:29)
[2022-06-24 08:22] LABS: CALCIUM 8.9 mg/dL (8.5-10.1)
[2022-06-24 08:23] LABS: BLOOD UREA NITROGEN 18.4 mg/dL (7-18); MAGNESIUM 1.9 mg/dL (1.8-2.4)
[2022-06-24 08:26] LABS: CREATININE 0.7 mg/dL (0.55-1.3)
[2022-06-24] MEDS: POTASSIUM CITRATE/CITRIC ACID 2 MEQ/ML ML PO SCH (09:53)
[2022-06-24] MEDS: SPIRONOLACTONE 25 MG TABLET PO SCH ×2 (09:53→21:25)
[2022-06-24] MEDS: SERTRALINE HCL 50 MG TABLET (FP) PO SCH (09:54)
[2022-06-24] MEDS: ENALAPRIL MALEATE 10 MG TABLET PO SCH ×2 (09:54→21:26)
[2022-06-24] MEDS: hydrALAZINE HCL 25 MG TABLET (FP) PO SCH ×2 (09:54→21:26)
[2022-06-24] MEDS: amLODIPine BESYLATE 10 MG TABLET (FP) PO SCH (09:54)
[2022-06-24] MEDS: HEPARIN NA (PORCINE) 5,000 UNITS/ML 1ML VIAL SQ SCH ×2 (09:54→21:26)
[2022-06-24] MEDS: POTASSIUM CHLORIDE TABS 10 MEQ TABLET.ER (FP) PO SCH ×2 (14:58→21:26)
[2022-06-25] MEDS: POTASSIUM CHLORIDE TABS 10 MEQ TABLET.ER (FP) PO SCH ×3 (06:29→21:32)
[2022-06-25 08:29] LABS: CALCIUM 9.3 mg/dL (8.5-10.1)
[2022-06-25 08:30] LABS: BLOOD UREA NITROGEN 16.8 mg/dL (7-18); MAGNESIUM 1.9 mg/dL (1.8-2.4)
[2022-06-25 08:33] LABS: CREATININE 0.8 mg/dL (0.55-1.3)
[2022-06-25] MEDS: HEPARIN NA (PORCINE) 5,000 UNITS/ML 1ML VIAL SQ SCH ×2 (09:45→21:36)
[2022-06-25] MEDS: POTASSIUM CITRATE/CITRIC ACID 2 MEQ/ML ML PO SCH (09:45)
[2022-06-25] MEDS: ENALAPRIL MALEATE 10 MG TABLET PO SCH ×2 (09:45→21:32)
[2022-06-25] MEDS: SERTRALINE HCL 50 MG TABLET (FP) PO SCH (09:46)
[2022-06-25] MEDS: SPIRONOLACTONE 25 MG TABLET PO SCH ×2 (09:46→21:32)
[2022-06-25] MEDS: hydrALAZINE HCL 50 MG TABLET (FP) PO SCH ×2 (09:48→21:33)
[2022-06-25] MEDS: amLODIPine BESYLATE 10 MG TABLET (FP) PO SCH (09:57)
[2022-06-25] MEDS: KCL 10 MEQ IVPB 10 MEQ/100 ML INFUS.BAG IVPB SCH ×3 (11:53→13:45)
[2022-06-26] MEDS ORDERED: ACETAMINOPHEN 325 MG TABLET (FP) PO ONE (01:03)
[2022-06-26] MEDS: POTASSIUM CHLORIDE TABS 10 MEQ TABLET.ER (FP) PO SCH ×2 (05:19→13:23)
[2022-06-26 08:19] LABS: BLOOD UREA NITROGEN 19.2 mg/dL (7-18); CALCIUM 9.1 mg/dL (8.5-10.1); MAGNESIUM 1.9 mg/dL (1.8-2.4)
[2022-06-26 08:22] LABS: CREATININE 0.8 mg/dL (0.55-1.3)
[2022-06-26 08:23] LABS: BILIRUBIN,TOTAL 0.4 mg/dL (0.2-1)
[2022-06-26 08:24] LABS: TOT PROT 6.3 g/dl (6.4-8.2)
[2022-06-26] MEDS: SPIRONOLACTONE 25 MG TABLET PO SCH (09:17)
[2022-06-26] MEDS: ENALAPRIL MALEATE 10 MG TABLET PO SCH (09:17)
[2022-06-26] MEDS: amLODIPine BESYLATE 10 MG TABLET (FP) PO SCH (09:17)
[2022-06-26] MEDS: SERTRALINE HCL 50 MG TABLET (FP) PO SCH (09:17)
[2022-06-26] MEDS: hydrALAZINE HCL 50 MG TABLET (FP) PO SCH (09:17)
[2022-06-26] MEDS: POTASSIUM CITRATE/CITRIC ACID 2 MEQ/ML ML PO SCH (09:18)
[2022-06-26] MEDS: HEPARIN NA (PORCINE) 5,000 UNITS/ML 1ML VIAL SQ SCH (09:18)
[2022-06-26 10:28] VITALS: BP 143/76; PULSE 74; RESP 18; TEMP 98.6
== END 2022-06-26 14:06 | disposition home or self-care (01) | DRG 644 ==
LOC: JER 12:19 → JERBED 16:20 → J4W 22:01
PROVIDERS: ADMIT Family Medicine; ATTEND Family Medicine
DX: E27.1 Primary adrenocortical insufficiency (principal); N39.0 Urinary tract infection, site not specified; I12.9 Hypertensive chronic kidney disease with stage 1 through stage 4 chronic kidney disease, or unspecified chronic kidney disease; N18.9 Chronic kidney disease, unspecified; E78.5 Hyperlipidemia, unspecified; E87.5 Hyperkalemia; E87.6 Hypokalemia; B96.20 Unspecified Escherichia coli [E. coli] as the cause of diseases classified elsewhere; K21.9 Gastro-esophageal reflux disease without esophagitis; N28.1 Cyst of kidney, acquired; M54.9 Dorsalgia, unspecified
CPT/HCPCS: 0241U-QW; 36415; 71046-TC-FY; 71250-TC; 74183-TC; 76775-TC; 80048; 80053; 81003; 82024; 82088; 82384; 82530; 82533; 83735; 84100; 84132; 84300; 84439; 84443; 84484; 85025; 85027; 87086; 87186; 93005; 93010; 93971-TC; 99285-25; A9579; J1644; J8540

== ENCOUNTER 2024-01-05 19:13 | Inpatient (IN) | payer OTHER, BC ==
[2024-01-05 19:19] VITALS: BMI 25.7
[2024-01-05] MEDS ORDERED: ACETAMINOPHEN INJECTION 100 ML IVPB ONE (20:16)
[2024-01-05 20:17] LABS: VENOUS BASE EXCESS 1.3 mmol/L (-2-2); VENOUS O2 SATURATION 63.7 % (70-80); VENOUS PCO2 34.4 mmHg (38-52); VENOUS PH 7.469 (7.310-7.410)
[2024-01-05 20:18] LABS: BASO % 0.2 % (0-2.0); HEMATOCRIT 40.5 % (32.4-45.2); HEMOGLOBIN 13.4 GM/dL (10.7-15.3); LYMPH % 4.4 % (8-40); MCH 26.6 pg (25.7-33.7); MEAN CELL VOLUME 80.5 fl (80-96); MEAN PLT VOLUME 7.5 fl (7.5-11.1); MONO % 7.8 % (3.8-10.2); NEUT % 87.6 % (42.8-82.8); PLATELET COUNT 310 10^3/uL (134-434); RBC 5.04 M/mm3 (3.60-5.2); RDW 15.4 % (11.6-15.6)
[2024-01-05 20:24] LABS: INR 1.22 (0.83-1.09)
[2024-01-05 20:27] LABS: ACTIVATED PTT 23.7 SECONDS (25.2-36.5)
[2024-01-05] MEDS: ACETAMINOPHEN 1000 MG/100 ML BAG IVPB ONE (20:29)
[2024-01-05] MEDS: SODIUM CHLORIDE 1,000 ML IV STA (20:29)
[2024-01-05 20:34] LABS: EPI CELLS >36 /uL (0-25.1); HYALINE CASTS 4 /uL (0-3.1); PH,URINE 5.5 (5.0-8.0); URINE APPEARANCE CLOUDY; URINE BACTERIA >9,000 /uL (0-1359); URINE BILIRUBIN NEGATIVE (NEGATIVE); URINE COLOR YELLOW; URINE GLUCOSE (UA) NEGATIVE (NEGATIVE); URINE KETONE NEGATIVE (NEGATIVE); URINE LEUK ESTERASE 2+ (NEGATIVE); URINE NITRITE POSITIVE (NEGATIVE); URINE PROTEIN 1+ (NEGATIVE); URINE RBC 20 /uL (0-23.9); URINE WBC 784 /uL (0-25.8)
[2024-01-05 20:45] LABS: POTASSIUM 3.1 mmol/L (3.5-5.1)
[2024-01-05 20:47] LABS: CALCIUM 8.9 mg/dL (8.5-10.1)
[2024-01-05 20:48] LABS: ALBUMIN 3.4 g/dl (3.4-5.0); BLOOD UREA NITROGEN 21.5 mg/dL (7-18)
[2024-01-05 20:52] LABS: TOT PROT 6.8 g/dl (6.4-8.2)
[2024-01-05 20:53] LABS: BILIRUBIN,TOTAL 0.8 mg/dL (0.2-1)
[2024-01-05] MEDS ORDERED: CEFTRIAXONE 1 GM/50 ML BAG ONE (21:12)
[2024-01-05] MEDS ORDERED: POTASSIUM CHLORIDE ORAL LIQUID 20 MEQ/15 ML ONE (21:13)
[2024-01-05 21:14] LABS: CREATININE 1.1 mg/dL (0.55-1.3)
[2024-01-05] MEDS: POTASSIUM CHLORIDE ORAL LIQUID 20 MEQ/15 ML PO ONE (21:44)
[2024-01-05] MEDS: CEFTRIAXONE 1,000 MG in DEXTROSE 5%-WATER - 50 ML IVPB ONE (21:44)
[2024-01-05 23:44] VITALS: BP 139/84; PULSE 92; RESP 20; TEMP 98.5
== END 2024-01-06 00:30 | disposition left against medical advice (07) | DRG 690 ==
LOC: JER 19:13 → JERBED 23:22
PROVIDERS: ADMIT Internal Medicine; ATTEND Internal Medicine
DX: N10 Acute pyelonephritis (principal); E27.40 Unspecified adrenocortical insufficiency; I10 Essential (primary) hypertension; E78.5 Hyperlipidemia, unspecified; K21.9 Gastro-esophageal reflux disease without esophagitis; R14.0 Abdominal distension (gaseous); D72.829 Elevated white blood cell count, unspecified; G89.29 Other chronic pain; E87.6 Hypokalemia; M54.50 Low back pain, unspecified; K76.89 Other specified diseases of liver; K44.9 Diaphragmatic hernia without obstruction or gangrene; E27.9 Disorder of adrenal gland, unspecified; N20.0 Calculus of kidney; K57.90 Diverticulosis of intestine, part unspecified, without perforation or abscess without bleeding
CPT/HCPCS: 0241U-QW; 36415; 71045-TC-FY; 74177-TC; 80053; 81003; 82803; 83605; 84484; 85025; 85610; 85730; 86850; 86900; 86901; 87040; 87086; 87186; 93005; 93010; 99285-25; J0131; Q9967

== ENCOUNTER 2024-01-12 13:41 | Inpatient (IN) | payer OTHER, BC ==
[2024-01-12 13:47] VITALS: BMI 25.4
[2024-01-12] MEDS ORDERED: ACETAMINOPHEN INJECTION 100 ML IVPB ONE (16:08)
[2024-01-12] MEDS ORDERED: PIPERACILLIN/TAZOB 4.5 GM 4.5 GM/100 ML BAG IVPB ONE (16:09)
[2024-01-12] MEDS: ACETAMINOPHEN 1000 MG/100 ML BAG IVPB ONE (16:40)
[2024-01-12] MEDS: SODIUM CHLORIDE 0.9% 500 ML INFUS.BAG IV ONE (16:40)
[2024-01-12 16:55] LABS: EPI CELLS 18 /uL (0-25.1); HYALINE CASTS 1 /uL (0-3.1); URINE APPEARANCE CLEAR; URINE BACTERIA 1269 /uL (0-1359); URINE BILIRUBIN NEGATIVE (NEGATIVE); URINE COLOR YELLOW; URINE GLUCOSE (UA) NEGATIVE (NEGATIVE); URINE KETONE NEGATIVE (NEGATIVE); URINE LEUK ESTERASE 2+ (NEGATIVE); URINE NITRITE NEGATIVE (NEGATIVE); URINE PROTEIN TRACE (NEGATIVE); URINE RBC 12 /uL (0-23.9); URINE WBC 152 /uL (0-25.8)
[2024-01-12] MEDS: PIPERACILLIN/TAZOB 4.5 GM 4.5 GM in DEXTROSE 5%-WATER 100 ML IVPB ONE (17:43)
[2024-01-12 17:49] LABS: HEMATOCRIT 36.5 % (32.4-45.2); HEMOGLOBIN 11.6 GM/dL (10.7-15.3); MCH 26.3 pg (25.7-33.7); MCHC 31.9 g/dl (32.0-36.0); MEAN CELL VOLUME 82.7 fl (80-96); MEAN PLT VOLUME 7.2 fl (7.5-11.1); PLATELET COUNT 380 10^3/uL (134-434); RBC 4.42 M/mm3 (3.60-5.2); RDW 15.5 % (11.6-15.6); WHITE BLOOD COUNT 12.7 K/mm3 (4.0-10.0)
[2024-01-12 18:09] LABS: BLOOD UREA NITROGEN 18.9 mg/dL (7-18); CALCIUM 8.4 mg/dL (8.5-10.1)
[2024-01-12 18:12] LABS: CREATININE 0.8 mg/dL (0.55-1.3)
[2024-01-12 18:14] LABS: BILIRUBIN,TOTAL 0.3 mg/dL (0.2-1); TOT PROT 5.8 g/dl (6.4-8.2)
[2024-01-12 18:21] LABS: ANISOCYTOSIS 2+; MACROCYTOSIS 0; TARGET CELLS 1+
[2024-01-12 18:34] LABS: ALBUMIN 2.5 g/dl (3.4-5.0); LACTIC ACID 2.1 mmol/L (0.4-2.0)
[2024-01-12] MEDS ORDERED: ACETAMINOPHEN 325 MG TABLET (FP) PO PRN (19:38)
[2024-01-12] MEDS ORDERED: DOCUSATE SODIUM 100 MG CAPSULE (FP) PO PRN (19:38)
[2024-01-12] MEDS: SODIUM CHLORIDE 0.45% 1,000 ML IV SCH (19:55)
[2024-01-12] MEDS ORDERED: PIPERACILLIN/TAZOB 3.375 GM 3.375 GM in DEXTROSE 5%-WATER - 50 ML IVPB SCH (23:00)
[2024-01-12] MEDS ORDERED: hydrALAZINE HCL 50 MG TABLET (FP) ONE (23:46)
[2024-01-12] MEDS: hydrALAZINE HCL 50 MG TABLET (FP) PO SCH (23:51)
[2024-01-13] MEDS: POTASSIUM CHLORIDE TABS 20 MEQ TABLET.ER (FP) PO SCH (06:37)
[2024-01-13 08:22] LABS: HEMATOCRIT 35.6 % (32.4-45.2); HEMOGLOBIN 11.7 GM/dL (10.7-15.3); MCH 26.8 pg (25.7-33.7); MCHC 32.7 g/dl (32.0-36.0); MEAN CELL VOLUME 81.8 fl (80-96); MEAN PLT VOLUME 7.5 fl (7.5-11.1); PLATELET COUNT 389 10^3/uL (134-434); RBC 4.36 M/mm3 (3.60-5.2); RDW 15.5 % (11.6-15.6); WHITE BLOOD COUNT 12.6 K/mm3 (4.0-10.0)
[2024-01-13 08:38] LABS: POTASSIUM 3.7 mmol/L (3.5-5.1)
[2024-01-13 08:39] LABS: CALCIUM 8.5 mg/dL (8.5-10.1)
[2024-01-13 08:40] LABS: BLOOD UREA NITROGEN 18.7 mg/dL (7-18); MAGNESIUM 2.1 mg/dL (1.8-2.4)
[2024-01-13 08:43] LABS: CREATININE 0.9 mg/dL (0.55-1.3); PHOSPHOROUS 3.2 mg/dL (2.5-4.9)
[2024-01-13] MEDS: HEPARIN NA (PORCINE) 5,000 UNITS/ML 1ML VIAL SQ SCH (10:15)
[2024-01-13] MEDS: SPIRONOLACTONE 25 MG TABLET PO SCH (10:16)
[2024-01-13] MEDS: amLODIPine BESYLATE 10 MG TABLET (FP) PO SCH (10:16)
[2024-01-13 10:52] LABS: ANISOCYTOSIS 0; MACROCYTOSIS 0
[2024-01-13] MEDS: ACETAMINOPHEN 1000 MG/100 ML BAG IVPB PRN (14:06)
[2024-01-13] MEDS: MEROPENEM 1 GM in DEXTROSE 5%-WATER 100 ML IVPB SCH (14:26)
[2024-01-13] MEDS: ATORVASTATIN CA 40 MG TABLET (FP) PO SCH (22:27)
[2024-01-13] MEDS: SERTRALINE HCL 50 MG TABLET (FP) PO SCH (22:27)
[2024-01-13] MEDS ORDERED: ACETAMINOPHEN 325 MG TABLET (FP) PO PRN (23:00)
[2024-01-13] MEDS: METOCLOPRAMIDE HCL INJECTION 10 MG/2 ML VIAL IVPB ONE (23:03)
[2024-01-13] MEDS ORDERED: PIPERACILLIN/TAZOB 3.375 GM 3.375 GM/50 ML BAG IVPB SCH (23:45)
[2024-01-14] MEDS: Vibegron [Gemtesa] 75 MG Tablet PO SCH (21:26)
[2024-01-14] MEDS: ACETAMINOPHEN 500 MG TABLET (FP) PO PRN (21:29)
[2024-01-15 09:36] LABS: HEMOGLOBIN 12.4 GM/dL (10.7-15.3); MCH 27.3 pg (25.7-33.7); MCHC 33.6 g/dl (32.0-36.0); MEAN CELL VOLUME 81.3 fl (80-96); MEAN PLT VOLUME 7.4 fl (7.5-11.1); PLATELET COUNT 494 10^3/uL (134-434); RBC 4.55 M/mm3 (3.60-5.2); RDW 15.1 % (11.6-15.6); WHITE BLOOD COUNT 8.8 K/mm3 (4.0-10.0)
[2024-01-15 09:53] LABS: POTASSIUM 4.4 mmol/L (3.5-5.1)
[2024-01-15 09:55] LABS: CALCIUM 9.2 mg/dL (8.5-10.1)
[2024-01-15 09:56] LABS: ALBUMIN 2.6 g/dl (3.4-5.0)
[2024-01-15 09:59] LABS: CREATININE 0.8 mg/dL (0.55-1.3)
[2024-01-15 10:00] LABS: BILIRUBIN,TOTAL 0.5 mg/dL (0.2-1); TOT PROT 6.3 g/dl (6.4-8.2)
[2024-01-15 10:02] LABS: ANISOCYTOSIS 0; MACROCYTOSIS 0
[2024-01-15] MEDS: CEFTRIAXONE 2 GM in DEXTROSE 5%-WATER 100 ML IVPB SCH (10:21)
[2024-01-15 14:24] VITALS: BP 136/69; PULSE 73; RESP 20; TEMP 98.2
[2024-01-15] MEDS: TAMSULOSIN HCL 0.4 MG CAP PO SCH (16:36)
== END 2024-01-15 17:48 | disposition home or self-care (01) | DRG 690 ==
LOC: JER 13:41 → JERBED 16:09 → OBSVTOIN 16:09 → J7W 01-13 02:26
PROVIDERS: ADMIT Internal Medicine; ATTEND Family Medicine
DX: N39.0 Urinary tract infection, site not specified (principal); E27.49 Other adrenocortical insufficiency; N12 Tubulo-interstitial nephritis, not specified as acute or chronic; N20.0 Calculus of kidney; I10 Essential (primary) hypertension; E78.5 Hyperlipidemia, unspecified; E87.6 Hypokalemia; B96.20 Unspecified Escherichia coli [E. coli] as the cause of diseases classified elsewhere; K21.9 Gastro-esophageal reflux disease without esophagitis
CPT/HCPCS: 36415; 71045-TC-FY; 76775-TC; 80048; 80053; 81003; 83605; 83690; 83735; 84100; 85025; 86140; 87040; 87086; 87186; 97116-GP; 97161-GP; 99285-25; J0131; J1644

== ENCOUNTER 2024-02-28 20:30 | Inpatient (IN) | payer OTHER, BC ==
[2024-02-28 20:38] VITALS: BMI 24.9
[2024-02-28] MEDS ORDERED: KETOROLAC TROMETHAMINE 15 MG/ML VIAL ONE (21:21)
[2024-02-28] MEDS ORDERED: ACETAMINOPHEN INJECTION 100 ML IVPB ONE (21:21)
[2024-02-28] MEDS: KETOROLAC TROMETHAMINE 15 MG/ML VIAL IVPUSH ONE (21:53)
[2024-02-28] MEDS: ACETAMINOPHEN 1000 MG/100 ML BAG IVPB ONE (21:53)
[2024-02-28] MEDS: SODIUM CHLORIDE 0.9% 500 ML INFUS.BAG IV ONE (21:53)
[2024-02-28 22:05] LABS: BASO % 0.2 % (0-2.0); HEMATOCRIT 38.7 % (32.4-45.2); HEMOGLOBIN 12.9 GM/dL (10.7-15.3); LYMPH % 5.1 % (8-40); MCH 26.8 pg (25.7-33.7); MCHC 33.5 g/dl (32.0-36.0); MEAN CELL VOLUME 80.2 fl (80-96); MEAN PLT VOLUME 7.7 fl (7.5-11.1); MONO % 9.5 % (3.8-10.2); NEUT % 85.2 % (42.8-82.8); PLATELET COUNT 314 10^3/uL (134-434); RBC 4.83 M/mm3 (3.60-5.2); RDW 15.5 % (11.6-15.6); WHITE BLOOD COUNT 19.9 K/mm3 (4.0-10.0)
[2024-02-28 22:18] LABS: EPI CELLS 25 /uL (0-25.1); HYALINE CASTS 1 /uL (0-3.1); PH,URINE 5.5 (5.0-8.0); URINE APPEARANCE CLOUDY; URINE BACTERIA 3187 /uL (0-1359); URINE BILIRUBIN 1+ (NEGATIVE); URINE COLOR DK YELLOW; URINE GLUCOSE (UA) NEGATIVE (NEGATIVE); URINE KETONE TRACE (NEGATIVE); URINE LEUK ESTERASE 3+ (NEGATIVE); URINE NITRITE POSITIVE (NEGATIVE); URINE PROTEIN 2+ (NEGATIVE); URINE WBC 1180 /uL (0-25.8)
[2024-02-28 22:27] LABS: POTASSIUM 3.8 mmol/L (3.5-5.1)
[2024-02-28 22:28] LABS: ALBUMIN 2.8 g/dl (3.4-5.0)
[2024-02-28 22:29] LABS: BLOOD UREA NITROGEN 25.6 mg/dL (7-18)
[2024-02-28 22:33] LABS: CREATININE 1.5 mg/dL (0.55-1.3)
[2024-02-28 22:34] LABS: BILIRUBIN,TOTAL 0.8 mg/dL (0.2-1); TOT PROT 6.4 g/dl (6.4-8.2)
[2024-02-28] MEDS ORDERED: CEFTRIAXONE 1 GM/50 ML BAG ONE (23:09)
[2024-02-28] MEDS: CEFTRIAXONE 1 GM in DEXTROSE 5%-WATER - 50 ML IVPB ONE (23:12)
[2024-02-29] MEDS ORDERED: MORPHINE SULFATE 2 MG/ML SYRINGE ONE (00:33)
[2024-02-29] MEDS: morphine CARPU-JECT 2 MG/1 ML DISP.SYRIN IVPUSH ONE (00:41)
[2024-02-29] MEDS ORDERED: ONDANSETRON 4 MG/2 ML VIAL ONE ×2 (00:48→12:55)
[2024-02-29] MEDS: ONDANSETRON 4 MG/2 ML VIAL IVPUSH ONE (00:53)
[2024-02-29] MEDS: SODIUM CHLORIDE 1,000 ML IV SCH ×2 (03:52→14:35)
[2024-02-29] MEDS ORDERED: ONDANSETRON 4 MG/2 ML VIAL IVPUSH PRN ×3 (05:00→14:03)
[2024-02-29 06:50] LABS: BASO % 0.5 % (0-2.0); EOS % 0.1 % (0-4.5); HEMATOCRIT 35.9 % (32.4-45.2); HEMOGLOBIN 11.8 GM/dL (10.7-15.3); LYMPH % 5.2 % (8-40); MCH 26.8 pg (25.7-33.7); MCHC 32.9 g/dl (32.0-36.0); MEAN CELL VOLUME 81.2 fl (80-96); MEAN PLT VOLUME 8.1 fl (7.5-11.1); MONO % 7.6 % (3.8-10.2); NEUT % 86.6 % (42.8-82.8); PLATELET COUNT 307 10^3/uL (134-434); RBC 4.42 M/mm3 (3.60-5.2); RDW 15.3 % (11.6-15.6); WHITE BLOOD COUNT 19.3 K/mm3 (4.0-10.0)
[2024-02-29 07:24] LABS: POTASSIUM 3.7 mmol/L (3.5-5.1)
[2024-02-29 07:26] LABS: CALCIUM 8.8 mg/dL (8.5-10.1)
[2024-02-29 07:27] LABS: BLOOD UREA NITROGEN 26.4 mg/dL (7-18)
[2024-02-29 07:31] LABS: CREATININE 1.4 mg/dL (0.55-1.3)
[2024-02-29] MEDS ORDERED: TAMSULOSIN HCL 0.4 MG CAP ONE (09:37)
[2024-02-29] MEDS ORDERED: hydrALAZINE HCL 50 MG TABLET (FP) ONE (09:37)
[2024-02-29] MEDS ORDERED: CEFTRIAXONE 1 GM/50 ML BAG ONE (09:38)
[2024-02-29] MEDS: TAMSULOSIN HCL 0.4 MG CAP PO ONE (09:55)
[2024-02-29] MEDS: hydrALAZINE HCL 50 MG TABLET (FP) PO SCH ×2 (09:55→22:26)
[2024-02-29] MEDS: CEFTRIAXONE 1 GM in DEXTROSE 5%-WATER - 50 ML IVPB SCH (09:55)
[2024-02-29] MEDS ORDERED: ACETAMINOPHEN INJECTION 100 ML IVPB ONE (10:40)
[2024-02-29] MEDS: ACETAMINOPHEN 1000 MG/100 ML BAG IVPB PRN (10:42)
[2024-02-29] MEDS ORDERED: PROPOFOL 20 ML ONE (12:44)
[2024-02-29] MEDS ORDERED: MIDAZOLAM HCL 2 MG/2 ML SINGLE DOSE VIAL ONE (12:44)
[2024-02-29] MEDS ORDERED: LIDOCAINE HCL/PF 2% SDV 5ML VIAL ONE (12:55)
[2024-02-29] MEDS ORDERED: DEXAMETHASONE SOD PHOSPHATE 4 MG/1 ML VIAL ONE (12:55)
[2024-02-29] MEDS ORDERED: ACETAMINOPHEN 1000 MG/100 ML BAG IVPB PRN (14:03)
[2024-02-29] MEDS: PATIENT'S OWN MEDICATION (NON-FORMULARY) (Vibegron [Gemtesa] 75 MG Tablet) PO SCH (15:15)
[2024-02-29] MEDS ORDERED: ATORVASTATIN CA 40 MG TABLET (FP) PO SCH (22:00)
[2024-02-29] MEDS ORDERED: amLODIPine BESYLATE 10 MG TABLET (FP) PO SCH (22:00)
[2024-02-29] MEDS: ATORVASTATIN CA 40 MG TABLET (FP) PO SCH (22:26)
[2024-02-29] MEDS: amLODIPine BESYLATE 10 MG TABLET (FP) PO SCH (22:26)
[2024-03-01] MEDS ORDERED: TAMSULOSIN HCL 0.4 MG CAP PO SCH (08:30)
[2024-03-01] MEDS: LACTATED RINGERS SOLUTION 1,000 ML IV SCH (09:53)
[2024-03-01] MEDS ORDERED: PATIENT'S OWN MEDICATION (NON-FORMULARY) (Vibegron [Gemtesa] 75 MG) PO SCH (10:00)
[2024-03-01] MEDS: CEFTRIAXONE 1 GM in DEXTROSE 5%-WATER - 50 ML IVPB SCH (11:14)
[2024-03-01] MEDS: MEROPENEM 1 GM in DEXTROSE 5%-WATER 100 ML IVPB SCH (12:38)
[2024-03-01] MEDS: SERTRALINE HCL 50 MG TABLET (FP) PO SCH (22:05)
[2024-03-01] MEDS: ALPRAZolam 0.25 MG TABLET PO PRN (22:07)
[2024-03-02 09:41] LABS: HEMATOCRIT 34.5 % (32.4-45.2); HEMOGLOBIN 11.6 GM/dL (10.7-15.3); MCHC 33.6 g/dl (32.0-36.0); MEAN CELL VOLUME 80.5 fl (80-96); MEAN PLT VOLUME 8.1 fl (7.5-11.1); PLATELET COUNT 369 10^3/uL (134-434); RBC 4.28 M/mm3 (3.60-5.2); WHITE BLOOD COUNT 13.1 K/mm3 (4.0-10.0)
[2024-03-02 10:13] LABS: POTASSIUM 3.3 mmol/L (3.5-5.1)
[2024-03-02 10:19] LABS: ALBUMIN 2.3 g/dl (3.4-5.0); BLOOD UREA NITROGEN 33.7 mg/dL (7-18); CALCIUM 8.4 mg/dL (8.5-10.1)
[2024-03-02 10:23] LABS: CREATININE 1.1 mg/dL (0.55-1.3)
[2024-03-02 10:24] LABS: BILIRUBIN,TOTAL 0.2 mg/dL (0.2-1); TOT PROT 5.6 g/dl (6.4-8.2)
[2024-03-02] MEDS: POLYETHYLENE GLYCOL (HEALTHYLAX) 3350 17 GM PACKET PO SCH (12:44)
[2024-03-02] MEDS: POTASSIUM CHLORIDE ORAL LIQUID 20 MEQ/15 ML PO ONE (16:02)
[2024-03-02] MEDS: ACETAMINOPHEN 325 MG TABLET (FP) PO PRN (18:34)
[2024-03-03] MEDS: KETOROLAC TROMETHAMINE 30 MG/1 ML VIAL IM PRN (09:42)
[2024-03-03] MEDS: PSYLLIUM 5.85 GM PACKET PO SCH (09:44)
[2024-03-03 09:55] LABS: HEMATOCRIT 37.7 % (32.4-45.2); HEMOGLOBIN 12.5 GM/dL (10.7-15.3); MCH 26.9 pg (25.7-33.7); MCHC 33.2 g/dl (32.0-36.0); MEAN CELL VOLUME 81.1 fl (80-96); PLATELET COUNT 365 10^3/uL (134-434); RBC 4.64 M/mm3 (3.60-5.2); RDW 15.7 % (11.6-15.6); WHITE BLOOD COUNT 10.8 K/mm3 (4.0-10.0)
[2024-03-03 10:19] LABS: POTASSIUM 3.1 mmol/L (3.5-5.1)
[2024-03-03 10:21] LABS: BLOOD UREA NITROGEN 18.1 mg/dL (7-18); CALCIUM 8.8 mg/dL (8.5-10.1)
[2024-03-03 10:23] LABS: ALBUMIN 2.6 g/dl (3.4-5.0)
[2024-03-03 10:26] LABS: BILIRUBIN,TOTAL 0.4 mg/dL (0.2-1); TOT PROT 6.1 g/dl (6.4-8.2)
[2024-03-03] MEDS ORDERED: HYDROmorphone HCL 2 MG TABLET PO PRN (10:57)
[2024-03-03 11:15] LABS: ANISOCYTOSIS 0; MACROCYTOSIS 0
[2024-03-03 11:16] LABS: PLATELET ESTIMATE ADEQUATE
[2024-03-03] MEDS: POTASSIUM CHLORIDE ORAL LIQUID 20 MEQ/15 ML PO ONE (15:59)
[2024-03-03] MEDS: SODIUM CHLORIDE 0.45%/POT 20 MEQ/1,000 ML INFUS.BAG IV SCH (16:00)
[2024-03-03] MEDS ORDERED: LOPERAMIDE HCL 2 MG CAPSULE PO PRN (19:38)
[2024-03-03] MEDS: LOPERAMIDE HCL 2 MG CAPSULE PO ONE (20:01)
[2024-03-03] MEDS: BANATROL PLUS POWDER PACKET PO SCH (22:32)
[2024-03-03] MEDS: ALPRAZolam 1 MG TABLET PO PRN (22:33)
[2024-03-04 10:31] LABS: CHLORIDE 104 mmol/L (98-107); POTASSIUM 2.8 mmol/L (3.5-5.1); SODIUM 142 mmol/L (136-145)
[2024-03-04 10:38] LABS: CALCIUM 8.3 mg/dL (8.5-10.1)
[2024-03-04 10:39] LABS: ALBUMIN 2.2 g/dl (3.4-5.0); ANION GAP 8 mmol/L (4-13); BLOOD UREA NITROGEN 14.1 mg/dL (7-18); CO2 30 mmol/L (21-32); GLUCOSE,RANDOM 81 mg/dL (74-106); MAGNESIUM 1.8 mg/dL (1.8-2.4)
[2024-03-04 10:42] LABS: CREATININE 0.7 mg/dL (0.55-1.3); SGOT/AST 16 U/L (15-37); SGPT/ALT 29 U/L (13-61)
[2024-03-04 10:43] LABS: BILIRUBIN,TOTAL 0.6 mg/dL (0.2-1)
[2024-03-04 10:44] LABS: TOT PROT 5.4 g/dl (6.4-8.2)
[2024-03-04 10:45] LABS: ALK PHOS 95 U/L (45-117)
[2024-03-04] MEDS ORDERED: KETOROLAC TROMETHAMINE 30 MG/1 ML VIAL IVPUSH PRN (12:36)
[2024-03-04] MEDS ORDERED: ACETAMINOPHEN 1000 MG/100 ML BAG IVPB PRN (12:37)
[2024-03-04] MEDS ORDERED: oxyCODONE HCL 5 MG TABLET PO PRN (12:37)
[2024-03-04] MEDS ORDERED: POLYETHYLENE GLYCOL (HEALTHYLAX) 3350 17 GM PACKET PO PRN (12:39)
[2024-03-04] MEDS: LACTOBACILLUS ACIDOPHILUS 1 TABLET PO SCH (14:32)
[2024-03-04] MEDS: KCL 10 MEQ IVPB 10 MEQ/100 ML INFUS.BAG IVPB SCH (14:32)
[2024-03-04] MEDS: LIPASE/PROTEASE/AMYLASE 24,000 UNIT CAPSULE PO SCH (17:28)
[2024-03-04] MEDS: POTASSIUM CHLORIDE ORAL LIQUID 20 MEQ/15 ML PO ONE (19:06)
[2024-03-05] MEDS ORDERED: FLUCONAZOLE 150 MG TABLET PO ONE (07:02)
[2024-03-05 09:54] LABS: HEMOGLOBIN 12.6 GM/dL (10.7-15.3); MCH 26.5 pg (25.7-33.7); MCHC 33.3 g/dl (32.0-36.0); MEAN CELL VOLUME 79.7 fl (80-96); MEAN PLT VOLUME 7.9 fl (7.5-11.1); PLATELET COUNT 408 10^3/uL (134-434); RBC 4.76 M/mm3 (3.60-5.2); RDW 15.6 % (11.6-15.6); WHITE BLOOD COUNT 9.8 K/mm3 (4.0-10.0)
[2024-03-05] MEDS: FLUCONAZOLE 150 MG TABLET PO ONE (09:58)
[2024-03-05] MEDS: CLOTRIMAZOLE 1% VAGINAL CREAM WITH APPLICATOR 45 GM TUBE VG SCH (10:04)
[2024-03-05 10:12] LABS: POTASSIUM 3.2 mmol/L (3.5-5.1)
[2024-03-05 10:22] LABS: ALBUMIN 2.3 g/dl (3.4-5.0); BLOOD UREA NITROGEN 16.6 mg/dL (7-18); CALCIUM 8.7 mg/dL (8.5-10.1); MAGNESIUM 1.9 mg/dL (1.8-2.4)
[2024-03-05 10:26] LABS: CREATININE 0.8 mg/dL (0.55-1.3)
[2024-03-05 10:27] LABS: BILIRUBIN,TOTAL 0.5 mg/dL (0.2-1); TOT PROT 5.8 g/dl (6.4-8.2)
[2024-03-05 11:46] LABS: EPI CELLS 25 /uL (0-25.1); HYALINE CASTS 0 /uL (0-3.1); PH,URINE 6.5 (5.0-8.0); URINE APPEARANCE CLEAR; URINE BACTERIA 10 /uL (0-1359); URINE BILIRUBIN NEGATIVE (NEGATIVE); URINE COLOR YELLOW; URINE GLUCOSE (UA) NEGATIVE (NEGATIVE); URINE KETONE NEGATIVE (NEGATIVE); URINE LEUK ESTERASE TRACE (NEGATIVE); URINE NITRITE NEGATIVE (NEGATIVE); URINE PROTEIN TRACE (NEGATIVE); URINE RBC 222 /uL (0-23.9); URINE UROBILINOGEN 0.2 mg/dL (0.2-1.0); URINE WBC 25 /uL (0-25.8)
[2024-03-05] MEDS: POTASSIUM CHLORIDE ORAL LIQUID 20 MEQ/15 ML PO SCH (17:21)
[2024-03-05] MEDS ORDERED: CLOTRIMAZOLE 1% VAGINAL CREAM WITH APPLICATOR 45 GM TUBE VG SCH (22:00)
[2024-03-06 09:46] LABS: POTASSIUM 3.1 mmol/L (3.5-5.1)
[2024-03-06 09:57] LABS: ALBUMIN 2.6 g/dl (3.4-5.0)
[2024-03-06 09:58] LABS: BLOOD UREA NITROGEN 18.2 mg/dL (7-18)
[2024-03-06 10:01] LABS: CREATININE 0.8 mg/dL (0.55-1.3)
[2024-03-06 10:02] LABS: TOT PROT 6.1 g/dl (6.4-8.2)
[2024-03-06 10:03] LABS: BILIRUBIN,TOTAL 0.3 mg/dL (0.2-1)
[2024-03-06] MEDS: POTASSIUM CHLORIDE ORAL LIQUID 20 MEQ/15 ML PO SCH (10:12)
[2024-03-06] MEDS: POTASSIUM CHLORIDE TABS 20 MEQ TABLET.ER (FP) PO SCH (10:49)
[2024-03-06] MEDS: NYSTATIN 500,000 UNITS/5 ML SUSPENSION PO SCH (12:22)
[2024-03-06] MEDS: POTASSIUM CHLORIDE 10 MEQ in SODIUM CHLORIDE 1,000 ML IV SCH (16:46)
[2024-03-06] MEDS: CLOTRIMAZOLE 1% VAGINAL CREAM WITH APPLICATOR 45 GM TUBE VG SCH (22:14)
[2024-03-07 08:22] LABS: POTASSIUM 3.5 mmol/L (3.5-5.1)
[2024-03-07 08:24] LABS: BLOOD UREA NITROGEN 16.9 mg/dL (7-18); MAGNESIUM 2.1 mg/dL (1.8-2.4)
[2024-03-07 08:27] LABS: CREATININE 0.7 mg/dL (0.55-1.3)
[2024-03-07 09:00] VITALS: BP 150/66; PULSE 69; RESP 20; TEMP 98.1
[2024-03-07] MEDS: NITROFURANTOIN MONOHYD/M-CRYST 100 MG CAPSULE PO SCH (10:25)
== END 2024-03-07 11:42 | disposition home or self-care (01) | DRG 660 ==
LOC: JER 20:30 → JERBED 02-29 00:25 → J8W 02-29 14:42
PROVIDERS: ADMIT Internal Medicine; ATTEND Family Medicine
PROC: 0T778DZ Dilation of Left Ureter with Intraluminal Device, Via Natural or Artificial Opening Endoscopic (ICD-10-PCS; principal; 2024-02-29 14:00)
PROC: BT1FZZZ Fluoroscopy of Left Kidney, Ureter and Bladder (ICD-10-PCS; 2024-02-29 14:00)
DX: N13.6 Pyonephrosis (principal); E27.40 Unspecified adrenocortical insufficiency; E78.5 Hyperlipidemia, unspecified; K21.9 Gastro-esophageal reflux disease without esophagitis; M54.50 Low back pain, unspecified; F32.A Depression, unspecified; E87.6 Hypokalemia; B96.20 Unspecified Escherichia coli [E. coli] as the cause of diseases classified elsewhere; E26.09 Other primary hyperaldosteronism; N17.9 Acute kidney failure, unspecified; I12.9 Hypertensive chronic kidney disease with stage 1 through stage 4 chronic kidney disease, or unspecified chronic kidney disease; N18.9 Chronic kidney disease, unspecified; F41.8 Other specified anxiety disorders; K57.90 Diverticulosis of intestine, part unspecified, without perforation or abscess without bleeding; K76.89 Other specified diseases of liver; N32.81 Overactive bladder; R14.0 Abdominal distension (gaseous); D72.829 Elevated white blood cell count, unspecified
CPT/HCPCS: 36415; 74176-TC; 80048; 80053; 81003; 82533; 82977; 83690; 83735; 85025; 85027; 87040; 87086; 87186; 87324; 87449; 93005; 93010; 93306-TC; 94760; 99285-25; C1758; C2617; J0131; J3480